=== PATIENT | female | born 1935 | race Caucasian/White ===

== ENCOUNTER 2019-08-04 06:53 | Outpatient (CLI) | payer MEDICARE, SELFPAY ==
[2019-08-04 07:13] LABS: Basophils Absolute Auto 0.07 K/mm3 (0.00-0.10); Basophils Percent Auto 0.9 % (0.0-1.0); Eosinophils Absolute Auto 0.23 K/mm3 (0.02-0.50); Eosinophils Percent Auto 2.8 % (1.0-6.0); Hematocrit 39.6 % (35.0-42.0); Hemoglobin 13.2 g/dL (11.7-13.8); Immature Granulocyte Absolute 0.04 K/mm3 (0.00-0.00); Immature Granulocyte Percent A 0.5 % (0.0-0.0); Lymphocytes Absolute Auto 3.61 K/mm3 (1.10-4.50); Lymphocytes Percent Auto 44.6 % (18.0-42.0); Mean Corpuscular HGB Conc 33.3 g/dL (32.0-36.0); Mean Corpuscular Hemoglobin 29.6 pg (27.0-31.0); Mean Corpuscular Volume 88.8 fL (78.0-102.0); Mean Platelet Volume 9.8 fl (9.2-11.8); Monocytes Absolute Auto 0.83 K/mm3 (0.10-0.90); Monocytes Percent Auto 10.3 % (2.0-11.0); Neutrophils Absolute Auto 3.3 K/mm3 (1.7-7.2); Neutrophils Percent Auto 40.9 % (50.0-70.0); Platelet Count Result 242 K/mm3 (150-420); Red Blood Count 4.46 M/mm3 (4.20-5.40); White Blood Count 8.1 K/mm3 (4.8-10.8)
[2019-08-04 07:21] LABS: Creatinine Urine 36.59 mg/dL (40-278)
[2019-08-04 08:23] LABS: MALB Creatinine Ratio 40.1 mg/g (0-30); Microalbumin Urine Random 14.7 mg/L
[2019-08-04 08:51] LABS: Alanine Aminotransferase 21 U/L (14-59); Albumin Level 3.3 g/dL (3.4-5.0); Alkaline Phosphatase 60 U/L (46-116); Anion Gap 13.4 mmol/L (7-16); Aspartate Amino Transferase 27 U/L (15-37); Bilirubin,Total 0.5 mg/dL (0.00-1.00); Blood Urea Nitrogen 27 mg/dL (7-18); Calcium 8.7 mg/dL (8.5-10.1); Carbon Dioxide 25 mmol/L (21-32); Chloride 98 mmol/L (98-108); Creatine Kinase 113 U/L (26-192); Estimated Glomerular Filt Rate 37; Glucose 95 mg/dL (70-99); Osmolality Calculated 279 mOsm/kg (285-295); Potassium 4.4 mmol/L (3.5-5.1); Sodium 132 mmol/L (136-145); Thyroid Stimulating Hormone 2.41 uIU/mL (0.36-3.74); Total Protein 7.3 g/dL (6.4-8.2)
== END 2019-08-04 06:54 | disposition home or self-care (01) ==
PROVIDERS: PCP Family Medicine; Visit Provider Family Medicine
DX: E78.2 Mixed hyperlipidemia (principal); I10 Essential (primary) hypertension
CPT/HCPCS: 36415; 80053; 82043; 82550; 84443; 85025

== ENCOUNTER 2019-12-06 07:12 | Outpatient (CLI) | payer MEDICARE, SELFPAY ==
[2019-12-06 07:27] LABS: Basophils Absolute Auto 0.08 K/mm3 (0.00-0.10); Basophils Percent Auto 1.1 % (0.0-1.0); Eosinophils Absolute Auto 0.25 K/mm3 (0.02-0.50); Eosinophils Percent Auto 3.3 % (1.0-6.0); Hemoglobin 13.9 g/dL (11.7-13.8); Immature Granulocyte Absolute 0.04 K/mm3 (0.00-0.00); Immature Granulocyte Percent A 0.5 % (0.0-0.0); Lymphocytes Absolute Auto 3.48 K/mm3 (1.10-4.50); Mean Corpuscular HGB Conc 30.9 g/dL (32.0-36.0); Mean Corpuscular Hemoglobin 31.4 pg (27.0-31.0); Mean Corpuscular Volume 101.8 fL (78.0-102.0); Mean Platelet Volume 10.8 fl (9.2-11.8); Monocytes Absolute Auto 0.64 K/mm3 (0.10-0.90); Monocytes Percent Auto 8.5 % (2.0-11.0); Neutrophils Absolute Auto 3.1 K/mm3 (1.7-7.2); Neutrophils Percent Auto 40.6 % (50.0-70.0); Platelet Count Result 179 K/mm3 (150-420); Red Blood Count 4.42 M/mm3 (4.20-5.40); Red Cell Distribution Width 11.7 % (11.6-14.4); White Blood Count 7.6 K/mm3 (4.8-10.8)
[2019-12-06 07:36] LABS: Anion Gap 11 mmol/L (8-16); Blood Urea Nitrogen 27 mg/dL (7-18); Calcium 9.1 mg/dL (8.5-10.1); Carbon Dioxide 23 mmol/L (21-32); Chloride 100 mmol/L (98-108); Estimated Glomerular Filt Rate 45; Glucose 103 mg/dL (70-99); Osmolality Calculated 283 mOsm/kg (285-295); Sodium 134 mmol/L (136-145)
[2019-12-06 07:40] LABS: Potassium 5.3 mmol/L (3.5-5.1)
== END 2019-12-06 07:13 | disposition home or self-care (01) ==
LOC: CHSLAB 07:14
PROVIDERS: PCP Family Medicine; Visit Provider Family Medicine
DX: I10 Essential (primary) hypertension (principal)
CPT/HCPCS: 36415; 80048; 85025

== ENCOUNTER 2020-06-17 07:15 | Outpatient (CLI) | payer MEDICARE, SELFPAY ==
[2020-06-17 07:30] LABS: Basophils Absolute Auto 0.09 K/mm3 (0.00-0.10); Basophils Percent Auto 1.1 % (0.0-1.0); Eosinophils Absolute Auto 0.26 K/mm3 (0.02-0.50); Eosinophils Percent Auto 3.2 % (1.0-6.0); Hemoglobin 13.7 g/dL (11.7-13.8); Immature Granulocyte Absolute 0.05 K/mm3 (0.00-0.00); Immature Granulocyte Percent A 0.6 % (0.0-0.0); Lymphocytes Absolute Auto 3.46 K/mm3 (1.10-4.50); Lymphocytes Percent Auto 42.9 % (18.0-42.0); Mean Corpuscular HGB Conc 33.4 g/dL (32.0-36.0); Mean Corpuscular Hemoglobin 31.9 pg (27.0-31.0); Mean Corpuscular Volume 95.3 fL (78.0-102.0); Mean Platelet Volume 9.9 fl (9.2-11.8); Monocytes Absolute Auto 0.78 K/mm3 (0.10-0.90); Monocytes Percent Auto 9.7 % (2.0-11.0); Neutrophils Absolute Auto 3.4 K/mm3 (1.7-7.2); Neutrophils Percent Auto 42.5 % (50.0-70.0); Platelet Count Result 242 K/mm3 (150-420); Red Cell Distribution Width 11.6 % (11.6-14.4); White Blood Count 8.1 K/mm3 (4.8-10.8)
[2020-06-17 07:31] LABS: Add Urine Microscopic? YES; Appearance Urine Sl Cloudy (Clear); Bilirubin Urine Negative (Negative); Blood Urine Negative (Negative); Color Urine Yellow (Yellow); Glucose Urine UA Negative (Negative); Ketones Urine Negative (Negative); Leukocyte Esterase Ur Trace (Negative); Nitrate Urine Positive (Negative); Protein Urine Negative (Negative); Urobilinogen Urine 0.2 mg/dL (0.2-1.0); pH Urine 5.5 (5.0-8.0)
[2020-06-17 07:48] LABS: Bacteria Urine 3+ /hpf; RBC Urine None seen /hpf (0-2); Squamous Epithelial Cell Urine Occasional /hpf (Few)
[2020-06-17 07:49] LABS: Creatinine Urine 50.26 mg/dL (40-278); MALB Creatinine Ratio 56.3 mg/g (0-30); Microalbumin Urine Random 28.3 mg/L
[2020-06-17 10:19] LABS: Alanine Aminotransferase 29 U/L (14-59); Albumin Level 3.5 g/dL (3.4-5.0); Alkaline Phosphatase 60 U/L (46-116); Anion Gap 7 mmol/L (8-16); Aspartate Amino Transferase 26 U/L (15-37); Bilirubin,Total 0.5 mg/dL (0.00-1.00); Blood Urea Nitrogen 31 mg/dL (7-18); Carbon Dioxide 29 mmol/L (21-32); Chloride 101 mmol/L (98-108); Cholesterol 212 mg/dL (0-200); Estimated Glomerular Filt Rate 36; Glucose 97 mg/dL (70-99); HDL Direct 35 mg/dL (40-60); LDL Cholesterol Calculated 131 mg/dL (<130); Osmolality Calculated 290 mOsm/kg (285-295); Sodium 137 mmol/L (136-145); Thyroid Stimulating Hormone 2.34 uIU/mL (0.36-3.74); Total Protein 7.9 g/dL (6.4-8.2); Triglycerides 230 mg/dL (0-150)
== END 2020-06-17 07:16 | disposition home or self-care (01) ==
LOC: CHSLAB 07:18
PROVIDERS: PCP Family Medicine; Visit Provider Family Medicine
DX: E78.2 Mixed hyperlipidemia (principal); I12.9 Hypertensive chronic kidney disease with stage 1 through stage 4 chronic kidney disease, or unspecified chronic kidney disease; N18.30 Chronic kidney disease, stage 3 unspecified
CPT/HCPCS: 36415; 80053; 80061; 81001; 82043; 84443; 85025

== ENCOUNTER 2020-09-25 06:56 | Outpatient (CLI) | payer MEDICARE, SELFPAY ==
[2020-09-25 08:10] LABS: Anion Gap 12 mmol/L (8-16); Blood Urea Nitrogen 23 mg/dL (7-18); Calcium 8.5 mg/dL (8.5-10.1); Carbon Dioxide 25 mmol/L (21-32); Chloride 103 mmol/L (98-108); Estimated Glomerular Filt Rate 42; Glucose 100 mg/dL (70-99); Osmolality Calculated 293 mOsm/kg (285-295); Potassium 4.8 mmol/L (3.5-5.1); Sodium 140 mmol/L (136-145)
== END 2020-09-25 06:57 | disposition home or self-care (01) ==
LOC: CHSLAB 06:59
PROVIDERS: PCP Family Medicine; Visit Provider Family Medicine
DX: N25.9 Disorder resulting from impaired renal tubular function, unspecified (principal)
CPT/HCPCS: 36415; 80048

== ENCOUNTER 2021-02-12 07:03 | Outpatient (CLI) | payer MEDICARE, SELFPAY ==
[2021-02-12 07:15] LABS: Basophils Absolute Auto 0.06 K/mm3 (0.00-0.10); Basophils Percent Auto 0.6 % (0.0-1.0); Eosinophils Absolute Auto 0.33 K/mm3 (0.02-0.50); Eosinophils Percent Auto 3.5 % (1.0-6.0); Hematocrit 41.1 % (35.0-42.0); Hemoglobin 14.2 g/dL (11.7-13.8); Immature Granulocyte Absolute 0.05 K/mm3 (0.00-0.00); Immature Granulocyte Percent A 0.5 % (0.0-0.0); Lymphocytes Absolute Auto 3.75 K/mm3 (1.10-4.50); Lymphocytes Percent Auto 39.9 % (18.0-42.0); Mean Corpuscular HGB Conc 34.5 g/dL (32.0-36.0); Mean Corpuscular Hemoglobin 31.8 pg (27.0-31.0); Mean Corpuscular Volume 91.9 fL (78.0-102.0); Monocytes Absolute Auto 0.88 K/mm3 (0.10-0.90); Monocytes Percent Auto 9.4 % (2.0-11.0); Neutrophils Absolute Auto 4.3 K/mm3 (1.7-7.2); Neutrophils Percent Auto 46.1 % (50.0-70.0); Platelet Count Result 236 K/mm3 (150-420); Red Blood Count 4.47 M/mm3 (4.20-5.40); Red Cell Distribution Width 11.5 % (11.6-14.4); White Blood Count 9.4 K/mm3 (4.8-10.8)
[2021-02-12 07:31] LABS: Creatinine Urine 121.53 mg/dL (40-278)
[2021-02-12 07:39] LABS: MALB Creatinine Ratio 170.6 mg/g (0-30); Microalbumin Urine Random 207.4 mg/L
[2021-02-12 08:08] LABS: Anion Gap 11 mmol/L (8-16); Blood Urea Nitrogen 30 mg/dL (7-18); Calcium 8.9 mg/dL (8.5-10.1); Carbon Dioxide 26 mmol/L (21-32); Chloride 100 mmol/L (98-108); Estimated Glomerular Filt Rate 34; Glucose 106 mg/dL (70-99); Osmolality Calculated 290 mOsm/kg (285-295); Potassium 4.6 mmol/L (3.5-5.1); Sodium 137 mmol/L (136-145)
== END 2021-02-12 07:04 | disposition home or self-care (01) ==
LOC: CHSLAB 07:05
PROVIDERS: PCP Family Medicine; Visit Provider Family Medicine
DX: I10 Essential (primary) hypertension (principal)
CPT/HCPCS: 36415; 80048; 82043; 85025

== ENCOUNTER 2021-06-18 07:09 | Outpatient (CLI) | payer MEDICARE, SELFPAY ==
[2021-06-18 07:31] LABS: Basophils Absolute Auto 0.08 K/mm3 (0.00-0.10); Basophils Percent Auto 0.9 % (0.0-1.0); Eosinophils Percent Auto 3.5 % (1.0-6.0); Hematocrit 42.3 % (35.0-42.0); Hemoglobin 13.9 g/dL (11.7-13.8); Immature Granulocyte Absolute 0.02 K/mm3 (0.00-0.00); Immature Granulocyte Percent A 0.2 % (0.0-0.0); Lymphocytes Absolute Auto 2.74 K/mm3 (1.10-4.50); Lymphocytes Percent Auto 32.3 % (18.0-42.0); Mean Corpuscular HGB Conc 32.9 g/dL (32.0-36.0); Mean Corpuscular Hemoglobin 32.2 pg (27.0-31.0); Mean Corpuscular Volume 97.9 fL (78.0-102.0); Mean Platelet Volume 9.8 fl (9.2-11.8); Monocytes Absolute Auto 0.81 K/mm3 (0.10-0.90); Monocytes Percent Auto 9.6 % (2.0-11.0); Neutrophils Absolute Auto 4.5 K/mm3 (1.7-7.2); Neutrophils Percent Auto 53.5 % (50.0-70.0); Platelet Count Result 246 K/mm3 (150-420); Red Blood Count 4.32 M/mm3 (4.20-5.40); Red Cell Distribution Width 11.2 % (11.6-14.4); White Blood Count 8.5 K/mm3 (4.8-10.8)
[2021-06-18 07:44] LABS: Creatinine Urine 90.89 mg/dL (40-278)
[2021-06-18 07:53] LABS: MALB Creatinine Ratio 421.6 mg/g (0-30); Microalbumin Urine Random 383.2 mg/L
[2021-06-18 08:22] LABS: Alanine Aminotransferase 31 U/L (14-59); Albumin Level 3.4 g/dL (3.4-5.0); Alkaline Phosphatase 53 U/L (46-116); Anion Gap 7 mmol/L (8-16); Aspartate Amino Transferase 27 U/L (15-37); Bilirubin,Total 0.6 mg/dL (0.00-1.00); Blood Urea Nitrogen 30 mg/dL (7-18); Calcium 8.9 mg/dL (8.5-10.1); Carbon Dioxide 29 mmol/L (21-32); Chloride 101 mmol/L (98-108); Estimated Glomerular Filt Rate 37; Glucose 99 mg/dL (70-99); Osmolality Calculated 290 mOsm/kg (285-295); Potassium 4.8 mmol/L (3.5-5.1); Sodium 137 mmol/L (136-145); Total Protein 7.5 g/dL (6.4-8.2)
== END 2021-06-18 07:10 | disposition home or self-care (01) ==
LOC: CHSLAB 07:10
PROVIDERS: PCP Family Medicine; Visit Provider Family Medicine
DX: I10 Essential (primary) hypertension (principal)
CPT/HCPCS: 36415; 80053; 82043; 85025

== ENCOUNTER 2021-06-24 12:22 | Outpatient (CLI) | payer MEDICARE, SELFPAY ==
--- NOTE | ~2021-06-24 | US_ITS ---
EXAMINATION: US retroperitoneal comp DATE: 06/24/2021 12:47 INDICATION: Proteinuria TECHNIQUE: Multiple ultrasound grayscale images of the kidneys were obtained. COMPARISON: 10/14/2015 FINDINGS: The right kidney measures 9.5 x 4.6 x 5.1 cm. The left kidney measures 9.7 x 5.0 x 4.4 cm. The kidney s demonstrate normal echogenicity. There is no hydronephrosis in either kidney. No stones identified . The bladder is normal. Diffuse hepatic steatosis. IMPRESSION: 1. Normal kidneys without hydronephrosis. 2. Diffuse hepatic steatosis. Reviewed, dictated and finalized at location B.
== END 2021-06-24 12:23 | disposition home or self-care (01) ==
LOC: CHSIMG 12:24
PROVIDERS: PCP Family Medicine; Visit Provider Family Medicine
DX: R80.9 Proteinuria, unspecified (principal)
CPT/HCPCS: 76770

== ENCOUNTER 2021-09-03 07:09 | Outpatient (CLI) | payer MEDICARE, SELFPAY ==
[2021-09-03 07:32] LABS: Basophils Absolute Auto 0.06 K/mm3 (0.00-0.10); Basophils Percent Auto 0.8 % (0.0-1.0); Eosinophils Absolute Auto 0.23 K/mm3 (0.02-0.50); Eosinophils Percent Auto 3.1 % (1.0-6.0); Hematocrit 37.6 % (35.0-42.0); Hemoglobin 13.1 g/dL (11.7-13.8); Immature Granulocyte Absolute 0.03 K/mm3 (0.00-0.00); Immature Granulocyte Percent A 0.4 % (0.0-0.0); Lymphocytes Absolute Auto 2.87 K/mm3 (1.10-4.50); Lymphocytes Percent Auto 38.2 % (18.0-42.0); Mean Corpuscular HGB Conc 34.8 g/dL (32.0-36.0); Mean Corpuscular Hemoglobin 32.4 pg (27.0-31.0); Mean Corpuscular Volume 93.1 fL (78.0-102.0); Mean Platelet Volume 9.7 fl (9.2-11.8); Monocytes Absolute Auto 0.79 K/mm3 (0.10-0.90); Monocytes Percent Auto 10.5 % (2.0-11.0); Neutrophils Absolute Auto 3.5 K/mm3 (1.7-7.2); Platelet Count Result 242 K/mm3 (150-420); Red Blood Count 4.04 M/mm3 (4.20-5.40); Red Cell Distribution Width 11.3 % (11.6-14.4); White Blood Count 7.5 K/mm3 (4.8-10.8)
[2021-09-03 08:03] LABS: Alanine Aminotransferase 25 U/L (14-59); Albumin Level 3.2 g/dL (3.4-5.0); Alkaline Phosphatase 50 U/L (46-116); Anion Gap 6 mmol/L (8-16); Aspartate Amino Transferase 27 U/L (15-37); Bilirubin,Total 0.7 mg/dL (0.00-1.00); Blood Urea Nitrogen 24 mg/dL (7-18); Calcium 8.8 mg/dL (8.5-10.1); Carbon Dioxide 27 mmol/L (21-32); Chloride 95 mmol/L (98-108); Estimated Glomerular Filt Rate 39; Glucose 103 mg/dL (70-99); Osmolality Calculated 270 mOsm/kg (285-295); Phosphorus 4.1 mg/dL (2.6-4.7); Potassium 4.1 mmol/L (3.5-5.1); Sodium 128 mmol/L (136-145); Thyroid Stimulating Hormone 2.26 uIU/mL (0.36-3.74); Total Protein 7.5 g/dL (6.4-8.2)
[2021-09-03 08:07] LABS: Creatinine Urine 53.44 mg/dL (40-278); Sodium Urine Random 58 mmol/L (20-110)
[2021-09-03 08:08] LABS: MALB Creatinine Ratio 297.9 mg/g (0-30); Microalbumin Urine Random 159.2 mg/L
[2021-09-03 09:18] LABS: Eosinophil Urine 0 % (0-0)
[2021-09-05 11:34] LABS: Complement C3 120 mg/dL (***)
[2021-09-06 14:48] LABS: ANCA Screen Negative (Negative)
[2021-09-06 16:59] LABS: Albumin 3.5 g/dL (3.8-4.8); Alpha 1 Globulin 0.3 g/dL (0.2-0.3); Alpha 2 Globulin 0.9 g/dL (0.5-0.9); Beta 1 Globulin 0.5 g/dL (0.4-0.6); Gamma Globulin 1.3 g/dL (0.8-1.7); Protein, Total 7.1 g/dL (6.1-8.1)
[2021-09-07 14:00] LABS: Total Protein/Creatinine Ratio 574 mg/g creat (21-161)
[2021-09-08 19:32] LABS: Anti Glomerular Basement Memb <1.0 AI (<1.0)
== END 2021-09-03 07:10 | disposition home or self-care (01) ==
LOC: CHSLAB 07:10
PROVIDERS: PCP Family Medicine; Visit Provider Internal Medicine Nephrology
DX: R80.8 Other proteinuria (principal); I12.9 Hypertensive chronic kidney disease with stage 1 through stage 4 chronic kidney disease, or unspecified chronic kidney disease; N18.32 Chronic kidney disease, stage 3b
CPT/HCPCS: 36415; 80053; 80069; 82043; 82570; 83520; 84100; 84155; 84156; 84165; 84166; 84300; 84443; 85025; 85999; 86036; 86038; 86160; 86225

== ENCOUNTER 2021-12-19 07:11 | Outpatient (CLI) | payer MEDICARE, SELFPAY ==
[2021-12-19 07:50] LABS: Albumin Level 3.2 g/dL (3.4-5.0); Anion Gap 7 mmol/L (8-16); Blood Urea Nitrogen 26 mg/dL (7-18); Calcium 8.6 mg/dL (8.5-10.1); Carbon Dioxide 29 mmol/L (21-32); Chloride 101 mmol/L (98-108); Estimated Glomerular Filt Rate 35; Glucose 100 mg/dL (70-99); Osmolality Calculated 288 mOsm/kg (285-295); Phosphorus 4.6 mg/dL (2.6-4.7); Potassium 4.3 mmol/L (3.5-5.1); Sodium 137 mmol/L (136-145)
[2021-12-19 13:41] LABS: Creatinine Urine 91.03 mg/dL (40-278); Total Protein Urine Random 82.7 mg/dL (0.0-11.9); Ur Ttl Prot Creatinine Ratio 0.91 mg/mg (0-0.20)
[2021-12-22 15:02] LABS: Parathyroid Intact 17 pg/mL (14-64)
[2021-12-23 18:37] LABS: Vitamin D 25 Hydroxy 43 ng/mL (30-100)
== END 2021-12-19 07:12 | disposition home or self-care (01) ==
LOC: CHSLAB 07:14
PROVIDERS: PCP Family Medicine; Visit Provider Internal Medicine Nephrology
DX: R80.8 Other proteinuria (principal); Z12.9 Encounter for screening for malignant neoplasm, site unspecified; N18.32 Chronic kidney disease, stage 3b; E55.9 Vitamin D deficiency, unspecified; N25.81 Secondary hyperparathyroidism of renal origin
CPT/HCPCS: 36415; 80069; 82306; 82570; 83970; 84156

== ENCOUNTER 2022-05-13 07:15 | Outpatient (CLI) | payer MEDICARE, SELFPAY ==
[2022-05-13 07:50] LABS: Creatinine Urine 55.15 mg/dL (40-278)
[2022-05-13 07:56] LABS: MALB Creatinine Ratio 560.2 mg/g (0-30)
[2022-05-13 08:07] LABS: Albumin Level 3.3 g/dL (3.4-5.0); Anion Gap 9 mmol/L (8-16); Blood Urea Nitrogen 32 mg/dL (7-18); Calcium 8.6 mg/dL (8.5-10.1); Carbon Dioxide 29 mmol/L (21-32); Chloride 101 mmol/L (98-108); Estimated Glomerular Filt Rate 38; Glucose 101 mg/dL (70-99); Osmolality Calculated 294 mOsm/kg (285-295); Phosphorus 4.5 mg/dL (2.6-4.7); Potassium 4.3 mmol/L (3.5-5.1); Sodium 139 mmol/L (136-145)
[2022-05-17 06:50] LABS: Parathyroid Intact 21 pg/mL (14-64)
[2022-05-17 20:01] LABS: Vitamin D 25 Hydroxy 36 ng/mL (30-100)
== END 2022-05-13 07:16 | disposition home or self-care (01) ==
LOC: CHSLAB 07:17
PROVIDERS: PCP Family Medicine; Visit Provider Internal Medicine Nephrology
DX: N18.32 Chronic kidney disease, stage 3b (principal); I12.9 Hypertensive chronic kidney disease with stage 1 through stage 4 chronic kidney disease, or unspecified chronic kidney disease; R80.8 Other proteinuria; E55.9 Vitamin D deficiency, unspecified; N25.81 Secondary hyperparathyroidism of renal origin
CPT/HCPCS: 36415; 80069; 82043; 82306; 83970

== ENCOUNTER 2022-06-09 07:02 | Outpatient (CLI) | payer MEDICARE, SELFPAY ==
[2022-06-09 07:25] LABS: Basophils Absolute Auto 0.09 K/mm3 (0.00-0.10); Eosinophils Absolute Auto 0.59 K/mm3 (0.02-0.50); Eosinophils Percent Auto 6.7 % (1.0-6.0); Hematocrit 39.4 % (35.0-42.0); Hemoglobin 12.7 g/dL (11.7-13.8); Immature Granulocyte Absolute 0.06 K/mm3 (0.00-0.00); Immature Granulocyte Percent A 0.7 % (0.0-0.0); Lymphocytes Percent Auto 30.9 % (18.0-42.0); Mean Corpuscular HGB Conc 32.2 g/dL (32.0-36.0); Mean Corpuscular Hemoglobin 32.8 pg (27.0-31.0); Mean Corpuscular Volume 101.8 fL (78.0-102.0); Mean Platelet Volume 10.3 fl (9.2-11.8); Monocytes Absolute Auto 0.83 K/mm3 (0.10-0.90); Monocytes Percent Auto 9.5 % (2.0-11.0); Neutrophils Absolute Auto 4.5 K/mm3 (1.7-7.2); Neutrophils Percent Auto 51.2 % (50.0-70.0); Platelet Count Result 244 K/mm3 (150-420); Red Blood Count 3.87 M/mm3 (4.20-5.40); Red Cell Distribution Width 11.4 % (11.6-14.4); White Blood Count 8.8 K/mm3 (4.8-10.8)
[2022-06-09 08:24] LABS: Cholesterol 181 mg/dL (0-200); HDL Direct 38 mg/dL (40-60); LDL Cholesterol Calculated 95 mg/dL (<130); Thyroid Stimulating Hormone 2.01 uIU/mL (0.36-3.74); Triglycerides 239 mg/dL (0-150)
== END 2022-06-09 07:03 | disposition home or self-care (01) ==
LOC: CHSLAB 07:05
PROVIDERS: PCP Family Medicine; Visit Provider Family Medicine
DX: E78.2 Mixed hyperlipidemia (principal); I10 Essential (primary) hypertension; N18.32 Chronic kidney disease, stage 3b
CPT/HCPCS: 36415; 80061; 84443; 85025

== ENCOUNTER 2022-07-05 13:41 | Emergency (ER) | payer MEDICARE, SELFPAY ==
[2022-07-05 13:50] VITALS: BP 141/40; PULSE 72; RESP 18; TEMP 36.2; O2SAT 99
--- NOTE | 2022-07-05 14:04 | ED.GENADULT ---
HPI - General Adult General Chief complaint: Extremity Problem,Nontraumatic Stated complaint: Rt Foot Pain Time Seen by Provider: 07/05/22 14:04 Source: patient Mode of arrival: ambulatory Limitations: no limitations History of Present Illness HPI narrative: a 7-year-old female patient presents to [facility] with complaints of right lower leg pain that started a couple of days ago. Patient states she recently had a bunion shaved off of the right foot. Patient states she has had some pain, itching and noticed that her leg has been swelling with some redness. Related Data Home Medications Medication Instructions Recorded Confirmed acetaminophen 500 mg tablet 500 mg PO Q6H PRN Pain 05/20/22 07/05/22 (Tylenol Extra Strength) calcium carb,cit ER 600 mg-vit D3 1 tablet PO DAILY 05/20/22 07/05/22 12.5 mcg (500 unit) tablet,ext.rel latanoprost 0.005 % eye drops 1 drp EACH EYE DAILY 05/20/22 07/05/22 lisinopril 20 1 tablet PO BID 05/20/22 07/05/22 mg-hydrochlorothiazide 12.5 mg tablet (Zestoretic) metoprolol succinate 25 mg 12.5 mg PO DAILY 05/20/22 07/05/22 tablet,extended release 24 hr multivitamin (One-A-Day Essential 1 tablet PO DAILY 05/20/22 07/05/22 tablet) omega-3 fatty acids 500 mg PO DAILY 05/20/22 07/05/22 pravastatin 20 mg tablet 20 mg PO DAILY 05/20/22 07/05/22 Allergies Allergy/AdvReac Type Severity Reaction Status Date / Time Penicillins Allergy Rash Verified 07/05/22 13:49 Sulfa (Sulfonamide Allergy Rash Verified 07/05/22 13:49 Antibiotics) Review of Systems Review of Systems: CONSTITUTIONAL: Denies fever, chills, or sweats. EYES: Denies visual changes, redness, or discharge. ENT: Denies rhinorrhea, congestion, sore throat, or otalgia. CARDIOVASCULAR: Denies chest pain, palpitations, or edema. RESPIRATORY: Denies cough or dyspnea. GASTROINTESTINAL: Denies abdominal pain, nausea, vomiting, or diarrhea. GENITOURINARY: Denies dysuria or hematuria. SKIN: Denies rash or itching. MUSCULOSKELETAL: Denies back pain, joint pain, or myalgia. Positive redness, swelling and pain to right lower leg NEUROLOGIC: Denies headache, numbness, or weakness. PSYCHIATRIC: Denies anxiety or depression. [facility] Past Medical History Medical History CKD (chronic kidney disease) Depression Diabetes Hyperlipidemia Hypertension Hypothyroidism Obesity Proteinuria Family History Family History Mother Diabetes mellitus Hypertension Cerebrovascular accident Heart failure Kidney disease Father Hypertension Cerebrovascular accident Social History Social History Smoking status: Former smoker Tobacco type: cigarettes Alcohol intake: current Alcohol use details: once a month Substance use: never Lack of Transportation: No Lack of Food: Never True Current Housing: I Have Housing Concerned About Future Housing: No Difficulty Paying Gas/Electric Bills: No Difficulty Paying for Meds: No Currently Unemployed: No Education: High School Diploma/GED Difficulty w/ Childcare or Family Care: No Living arrangements: with family Gender identity (if verbalized by the patient): Female Comments At the time of my signature I agree with nursing past medical history, surgical, social, and family history. There is no relevant family history pertinent to the presenting complaint. Exam Narrative: GENERAL: Well-appearing, well-nourished, and in no acute distress. HEAD: Normocephalic, atraumatic. EYES: PERRLA and EOMI. ENT: Nares clear, no rhinorrhea or epistaxis. Mucous membranes moist. NECK: Supple. No lymphadenopathy CHEST: Clear to auscultation. No respiratory distress. HEART: Regular rate and rhythm. No murmur heard. Normal peripheral pulses. ABDOMEN: Soft, nontender, nondistended, normal active bowel sounds
== END 2022-07-05 14:20 | disposition home or self-care (01) ==
PROVIDERS: Emergency Provider Nurse Practitioner Family; PCP Family Medicine
DX: L03.115 Cellulitis of right lower limb (principal); Z87.891 Personal history of nicotine dependence; I12.9 Hypertensive chronic kidney disease with stage 1 through stage 4 chronic kidney disease, or unspecified chronic kidney disease; E11.22 Type 2 diabetes mellitus with diabetic chronic kidney disease; N18.9 Chronic kidney disease, unspecified; E03.9 Hypothyroidism, unspecified; E66.9 Obesity, unspecified; Z68.35 Body mass index [BMI] 35.0-35.9, adult
CPT/HCPCS: 99213; G0463

== ENCOUNTER 2022-09-16 08:14 | Outpatient (CLI) | payer MEDICARE, SELFPAY ==
[2022-09-16 08:34] LABS: Creatinine Urine 118.37 mg/dL (40-278); Ur Ttl Prot Creatinine Ratio 0.57 mg/mg (0-0.20)
[2022-09-16 08:55] LABS: Anion Gap 12 mmol/L (8-16); Blood Urea Nitrogen 35 mg/dL (7-18); Carbon Dioxide 23 mmol/L (21-32); Chloride 101 mmol/L (98-108); Estimated Glomerular Filt Rate 30; Glucose 194 mg/dL (70-99); Potassium 4.8 mmol/L (3.5-5.1); Sodium 136 mmol/L (136-145)
[2022-09-16 08:56] LABS: Albumin Level 3.1 g/dL (3.4-5.0); Osmolality Calculated 295 mOsm/kg (285-295); Phosphorus 3.7 mg/dL (2.6-4.7)
== END 2022-09-16 08:15 | disposition home or self-care (01) ==
LOC: CHSLAB 08:15
PROVIDERS: PCP Family Medicine; Visit Provider Internal Medicine Nephrology
DX: I12.9 Hypertensive chronic kidney disease with stage 1 through stage 4 chronic kidney disease, or unspecified chronic kidney disease (principal); N18.32 Chronic kidney disease, stage 3b; R80.9 Proteinuria, unspecified; R73.9 Hyperglycemia, unspecified
CPT/HCPCS: 36415; 80069; 82570; 83036; 84156

== ENCOUNTER 2022-12-08 07:22 | Outpatient (CLI) | payer MEDICARE, SELFPAY ==
[2022-12-08 07:53] LABS: Basophils Absolute Auto 0.06 K/mm3 (0.00-0.10); Basophils Percent Auto 0.8 % (0.0-1.0); Eosinophils Absolute Auto 0.28 K/mm3 (0.02-0.50); Eosinophils Percent Auto 3.9 % (1.0-6.0); Hematocrit 32.3 % (35.0-42.0); Hemoglobin 10.6 g/dL (11.7-13.8); Immature Granulocyte Absolute 0.03 K/mm3 (0.00-0.00); Immature Granulocyte Percent A 0.4 % (0.0-0.0); Lymphocytes Absolute Auto 2.41 K/mm3 (1.10-4.50); Lymphocytes Percent Auto 33.7 % (18.0-42.0); Mean Corpuscular HGB Conc 32.8 g/dL (32.0-36.0); Mean Corpuscular Hemoglobin 32.5 pg (27.0-31.0); Mean Corpuscular Volume 99.1 fL (78.0-102.0); Mean Platelet Volume 10.1 fl (9.2-11.8); Monocytes Absolute Auto 0.92 K/mm3 (0.10-0.90); Monocytes Percent Auto 12.8 % (2.0-11.0); Neutrophils Absolute Auto 3.5 K/mm3 (1.7-7.2); Neutrophils Percent Auto 48.4 % (50.0-70.0); Platelet Count Result 287 K/mm3 (150-420); Red Blood Count 3.26 M/mm3 (4.20-5.40); White Blood Count 7.2 K/mm3 (4.8-10.8)
[2022-12-08 07:54] LABS: Appearance Urine Clear (Clear); Bilirubin Urine Negative (Negative); Blood Urine Negative (Negative); Color Urine Light Yellow (Yellow); Glucose Urine UA Negative (Negative); Ketones Urine Negative (Negative); Leukocyte Esterase Ur 1+ (Negative); Nitrate Urine Positive (Negative); Protein Urine Trace (Negative); Urobilinogen Urine 0.2 mg/dL (0.2-1.0); pH Urine 8.5 (5.0-8.0)
[2022-12-08 07:58] LABS: Add Urine Microscopic? YES; Bacteria Urine 2+ /hpf; RBC Urine None seen /hpf (0-2); Squamous Epithelial Cell Urine Few /hpf (Few); WBC Urine 0-5 /hpf (0-3)
[2022-12-08 08:24] LABS: Alanine Aminotransferase 14 U/L (14-59); Albumin Level 3.3 g/dL (3.4-5.0); Alkaline Phosphatase 59 U/L (46-116); Anion Gap 11 mmol/L (8-16); Aspartate Amino Transferase 21 U/L (15-37); Bilirubin,Total 0.6 mg/dL (0.00-1.00); Blood Urea Nitrogen 28 mg/dL (7-18); Calcium 9.2 mg/dL (8.5-10.1); Carbon Dioxide 23 mmol/L (21-32); Chloride 102 mmol/L (98-108); Estimated Glomerular Filt Rate 35; Glucose 92 mg/dL (70-99); Osmolality Calculated 287 mOsm/kg (285-295); Potassium 4.3 mmol/L (3.5-5.1); Sodium 136 mmol/L (136-145); Thyroid Stimulating Hormone 2.45 uIU/mL (0.36-3.74); Total Protein 7.2 g/dL (6.4-8.2)
== END 2022-12-08 07:23 | disposition home or self-care (01) ==
LOC: CHSLAB 07:24
PROVIDERS: PCP Family Medicine; Visit Provider Family Medicine
DX: I10 Essential (primary) hypertension (principal)
CPT/HCPCS: 36415; 80053; 81001; 84443; 85025

== ENCOUNTER 2022-12-11 13:20 | Outpatient (CLI) | payer MEDICARE, SELFPAY ==
--- NOTE | ~2022-12-11 | US_ITS ---
EXAMINATION: US arterial ankle brachial ind DATE: 12/11/2022 14:27 INDICATION: Peripheral vascular disease. Absent pedal pulses. TECHNIQUE: Segmental pressures and plethysmographic and Doppler waveforms of the brachial and lower e xtremity arteries were obtained. COMPARISON: None. FINDINGS: Right and left brachial artery pressures of 138 mm Hg and 136 mm Hg, respectively, are concordant (no rmal difference <= 30 mmHg). The right ankle-brachial index (KATHY) is 0.91 (normal >= 0.9-1.0). The right great toe-brachial index (TBI) is 0.62 (normal >= 0.65). Arterial Doppler waveforms are monophasic at the ankle. The left KATHY is 0.54. The left TBI is 0.33. Arterial Doppler waveforms are monophasic at the ankle. IMPRESSION: 1. Mildly decreased right KATHY and moderately decreased left KATHY, consistent with arterial occlusive d isease. Reviewed, dictated and finalized at location A. IMPRESSION: 1. Mildly decreased right KATHY and moderately decreased left KATHY, consistent wit h arterial occlusive disease.
--- NOTE | ~2022-12-11 | US_ITS ---
EXAMINATION: US venous doppler [facility] DATE: 12/11/2022 14:28 INDICATION: Lower limb edema. TECHNIQUE: Grayscale ultrasound images without and with compression and Doppler ultrasound images of the bilateral lower extremity veins were obtained. COMPARISON: None. FINDINGS: The visualized portions of right common femoral vein, profunda (deep) femoral vein, femoral vein, pop liteal vein, peroneal veins, posterior tibial veins, and greater saphenous vein outflow are patent. The visualized portions of left common femoral vein, profunda femoral vein, femoral vein, popliteal v ein, peroneal veins, posterior tibial veins, and greater saphenous vein outflow are patent. IMPRESSION: 1. No deep venous thrombosis. Reviewed, dictated and finalized at location A.
[2022-12-11 13:47] LABS: Immature Reticulocyte Fraction 15.9 % (2.0-16.52); Reticulocyte Hemoglobin Conten 34.8 pg (28.0-35.0); Reticulocyte Percent 2.05 % (0.50-1.50); Reticulocytes Absolute 0.07 M/mm3 (0.02-0.1)
[2022-12-11 14:00] LABS: D Dimer 2.17 mg/L (0.19-0.50)
[2022-12-11 14:31] LABS: Ferritin 199 ng/mL (8-252); Iron 62 ug/dL (50-170); Percent Iron Saturation 24 % (12-57)
== END 2022-12-11 13:21 | disposition home or self-care (01) ==
LOC: CHSIMG 13:21
PROVIDERS: PCP Family Medicine; Visit Provider Family Medicine
DX: R09.89 Other specified symptoms and signs involving the circulatory and respiratory systems (principal); R60.9 Edema, unspecified; D64.9 Anemia, unspecified
CPT/HCPCS: 36415; 82728; 83540; 83550; 85046; 85380; 93922; 93970

== ENCOUNTER 2023-01-18 11:52 | Outpatient (CLI) | payer MEDICARE, SELFPAY ==
--- NOTE | ~2023-01-18 | XR_ITS ---
XR chest 2V 01/18/2023 12:12 Indication: Acute cough Procedure: 2 view chest Comparison: 01/22/2014 Findings: Heart size normal. Bilateral interstitial infiltrates are present. Small pleural effusions. No pneumothorax. No acute osseous abnormality. Impression: 1: Bilateral interstitial infiltrates may represent mild edema or pneumonia. 2: Small pleural effusions. Reviewed, dictated and finalized at location B. R MECHANIC Impression: 1: Bilateral interstitial infiltrates may represent mild edema or pneumonia. 2: Small pleural effusions.
== END 2023-01-18 11:53 | disposition home or self-care (01) ==
PROVIDERS: PCP Family Medicine; Visit Provider Family Medicine
DX: R05.1 Acute cough (principal); R91.8 Other nonspecific abnormal finding of lung field; J90 Pleural effusion, not elsewhere classified
CPT/HCPCS: 71046

== ENCOUNTER 2023-02-23 08:28 | Outpatient (CLI) | payer MEDICARE, SELFPAY ==
[2023-02-23 09:08] LABS: Creatinine Urine 72.44 mg/dL (40-278); Ur Ttl Prot Creatinine Ratio 0.39 mg/mg (0-0.20)
[2023-02-23 09:20] LABS: Albumin Level 2.8 g/dL (3.4-5.0); Anion Gap 6 mmol/L (8-16); Blood Urea Nitrogen 33 mg/dL (7-18); Calcium 8.2 mg/dL (8.5-10.1); Carbon Dioxide 30 mmol/L (21-32); Chloride 101 mmol/L (98-108); Estimated Glomerular Filt Rate 33; Glucose 83 mg/dL (70-99); Osmolality Calculated 290 mOsm/kg (285-295); Phosphorus 4.3 mg/dL (2.6-4.7); Potassium 4.2 mmol/L (3.5-5.1); Sodium 137 mmol/L (136-145)
[2023-02-25 18:57] LABS: Parathyroid Intact 46 pg/mL (14-64)
[2023-02-25 20:06] LABS: Vitamin D 25 Hydroxy 38 ng/mL (30-100)
== END 2023-02-23 08:29 | disposition home or self-care (01) ==
LOC: CHSLAB 08:30
PROVIDERS: PCP Family Medicine; Visit Provider Internal Medicine Nephrology
DX: R80.9 Proteinuria, unspecified (principal); N25.81 Secondary hyperparathyroidism of renal origin; E55.9 Vitamin D deficiency, unspecified; N18.32 Chronic kidney disease, stage 3b; I12.9 Hypertensive chronic kidney disease with stage 1 through stage 4 chronic kidney disease, or unspecified chronic kidney disease
CPT/HCPCS: 36415; 80069; 82306; 82570; 83970; 84156

== ENCOUNTER 2023-05-19 10:39 | Outpatient (CLI) | payer MEDICARE, SELFPAY ==
[2023-05-19 11:55] LABS: Anion Gap 7 mmol/L (8-16); Blood Urea Nitrogen 34 mg/dL (7-18); Calcium 8.9 mg/dL (8.5-10.1); Carbon Dioxide 31 mmol/L (21-32); Chloride 99 mmol/L (98-108); Estimated Glomerular Filt Rate 36; Glucose 80 mg/dL (70-99); NT Pro B Type Natriuretic Pept 2324 pg/mL (0-450); Osmolality Calculated 290 mOsm/kg (285-295); Potassium 4.7 mmol/L (3.5-5.1); Sodium 137 mmol/L (136-145)
== END 2023-05-19 10:40 | disposition home or self-care (01) ==
LOC: CHSLAB 10:42
PROVIDERS: PCP Family Medicine; Visit Provider Hospitalist
DX: I50.9 Heart failure, unspecified (principal)
CPT/HCPCS: 36415; 80048; 83880

== ENCOUNTER 2023-06-28 11:38 | Outpatient (CLI) | payer MEDICARE, SELFPAY ==
[2023-06-28 12:19] LABS: Creatinine Urine 30.81 mg/dL (40-278); Total Protein Urine Random 16.7 mg/dL (0.0-11.9); Ur Ttl Prot Creatinine Ratio 0.54 mg/mg (0-0.20)
[2023-06-28 12:30] LABS: Albumin Level 3.3 g/dL (3.4-5.0); Anion Gap 11 mmol/L (4-12); Blood Urea Nitrogen 46 mg/dL (7-18); Calcium 8.9 mg/dL (8.5-10.1); Carbon Dioxide 25 mmol/L (21-32); Chloride 100 mmol/L (98-108); Estimated Glomerular Filt Rate 44; Glucose 89 mg/dL (70-99); Osmolality Calculated 292 mOsm/kg (285-295); Phosphorus 3.7 mg/dL (2.6-4.7); Potassium 4.8 mmol/L (3.5-5.1); Sodium 136 mmol/L (136-145)
== END 2023-06-28 11:39 | disposition home or self-care (01) ==
LOC: CHSLAB 11:39
PROVIDERS: PCP Family Medicine; Visit Provider Internal Medicine Nephrology
DX: E55.9 Vitamin D deficiency, unspecified (principal); I12.9 Hypertensive chronic kidney disease with stage 1 through stage 4 chronic kidney disease, or unspecified chronic kidney disease; N18.32 Chronic kidney disease, stage 3b; N25.81 Secondary hyperparathyroidism of renal origin; R80.9 Proteinuria, unspecified
CPT/HCPCS: 36415; 80069; 82570; 84156

== ENCOUNTER 2023-10-15 07:24 | Outpatient (CLI) | payer MEDICARE, SELFPAY ==
[2023-10-15 08:00] LABS: Creatinine Urine 76.94 mg/dL (40-278); Total Protein Urine Random 29.6 mg/dL (0.0-11.9); Ur Ttl Prot Creatinine Ratio 0.38 mg/mg (0-0.20)
[2023-10-15 09:58] LABS: Anion Gap 8 mmol/L (4-12); Blood Urea Nitrogen 42 mg/dL (7-18); Calcium 8.6 mg/dL (8.5-10.1); Carbon Dioxide 28 mmol/L (21-32); Chloride 100 mmol/L (98-108); Estimated Glomerular Filt Rate 29; Glucose 83 mg/dL (70-99); Osmolality Calculated 291 mOsm/kg (285-295); Phosphorus 4.2 mg/dL (2.6-4.7); Potassium 4.9 mmol/L (3.5-5.1); Sodium 136 mmol/L (136-145)
[2023-10-16 13:59] LABS: Vitamin D 25 Hydroxy 46 ng/mL (30-100)
[2023-10-16 16:29] LABS: Parathyroid Intact 21 pg/mL (16-77)
== END 2023-10-15 07:25 | disposition home or self-care (01) ==
LOC: CHSLAB 07:26
PROVIDERS: PCP Family Medicine; Visit Provider Internal Medicine Nephrology
DX: E55.9 Vitamin D deficiency, unspecified (principal); I12.9 Hypertensive chronic kidney disease with stage 1 through stage 4 chronic kidney disease, or unspecified chronic kidney disease; N18.32 Chronic kidney disease, stage 3b; N25.81 Secondary hyperparathyroidism of renal origin; R80.9 Proteinuria, unspecified
CPT/HCPCS: 36415; 80069; 82306; 82570; 83970; 84156

== ENCOUNTER 2024-02-18 09:45 | Outpatient (CLI) | payer MEDICARE, SELFPAY ==
[2024-02-18 10:37] LABS: Albumin Level 3.3 g/dL (3.4-5.0); Anion Gap 8 mmol/L (4-12); Blood Urea Nitrogen 46 mg/dL (7-18); Carbon Dioxide 29 mmol/L (21-32); Chloride 102 mmol/L (98-108); Estimated Glomerular Filt Rate 28; Glucose 89 mg/dL (70-99); Osmolality Calculated 298 mOsm/kg (285-295); Phosphorus 4.2 mg/dL (2.6-4.7); Sodium 139 mmol/L (136-145)
[2024-02-18 10:44] LABS: Creatinine Urine 85.56 mg/dL (40-278); Total Protein Urine Random 26.1 mg/dL (0.0-11.9); Ur Ttl Prot Creatinine Ratio 0.31 mg/mg (0-0.20)
== END 2024-02-18 09:46 | disposition home or self-care (01) ==
PROVIDERS: PCP Family Medicine; Visit Provider Internal Medicine Nephrology
DX: R80.9 Proteinuria, unspecified (principal); I12.9 Hypertensive chronic kidney disease with stage 1 through stage 4 chronic kidney disease, or unspecified chronic kidney disease; N18.32 Chronic kidney disease, stage 3b
CPT/HCPCS: 36415; 80069; 82570; 84156

== ENCOUNTER 2024-06-13 07:35 | Outpatient (CLI) | payer MEDICARE, SELFPAY ==
--- OUTSIDE RECORDS SUMMARY | 2024-06-13 07:41 | XMS_ITS | Encounter Summary ---
Author Organization [facility] Address [facility] [place] [address] Care Team Providers Care Operations Administrative Assistant Name Role Phone Eliu Vicente MD Primary Care Provider [phone] Encounter Details Date Type Department Care Team (Late st Contact Info) Description 05/20/2023 Abstract [facility] [address] [address] Mina Koch MA Social History Tobacco Use Types Packs/Day Years Used Date Smoking Tobacco: Never Smokeless Tobacco: Never Alcohol Use Standard Drinks/Week Comments Never 0 (1 standard drink = 0.6 oz pur e alcohol) [facility] Utilities Answer Date Recorded In the past 12 months has e electric, gas, oil, or water official.fm threatened to shut off services in your home? No 02/04/2023 Humiliation, Afraid, Rape, and Kick questionnair e Answer Date Recorded Within the last year, have y ou been afraid of your partner or ex-partner? No 02/04/2023 Within the last year, have y ou been humiliated or emotionally abused in other ways by your partner or ex-partner? No Within the last year, have y ou been kicked, hit, slapped, or otherwise physically hurt by your partner or ex-partner? No 02/04/2023 Within the last year, have y ou been raped or forced to have any kind of sexual activity by your partner or ex-partner? No 02/04/2023 Social Connection and Isolat ion Panel [NHANES] Answer Date Recorded In a typical week, how many times do you talk on the phone with family, friends, or neighbors? More than three times a week 08/26/2022 How often do you get togethe r with friends or relatives? Three times a week 08/26/2022 How often do you attend chur ch or anabaptism services? More than 4 times per year 08/26/2022 Do you belong to any clubs o r organizations such as mormon groups, unions, fraternal or athletic groups, or school groups? Yes 08/26/2022 How often do you attend meet ings of the clubs or organizations you belong to? More than 4 times per year 08/26/2022 Are you , , di vorced, , never , or living with a partner? 08/26/2022 AUDIT-C Answer Date Recorded Q1: How often do you have a drink containing alc ohol? Monthly or less 08/26/2022 Q2: How many drinks containi ng alcohol do you have on a typical day when you are drinking? 1 or 2 08/26/2022 Q3: How often do you have si x or more drinks on one occasion? Never 08/26/2022 Overall Financial Resource Strain (CARDIA) Answe r Date Recorded How hard is it for you to pa y for the very basics like food, housing, medical care, and heating? Not hard at all 02/04/2023 PHQ-2 Answer Date Recorded Patient Health Questionnaire-2 Score 0 08/26/2022 [facility] - Occupational Stress Questionnaire Answer Date Recorded Do you feel stress - tense, restless, nervous, or anxious, or unable to sleep at night because your mind is troubled all the time - these days? Only a little 08/26/2022 Exercise Vital Sign Answer Date Recorde d On average, how many days pe r week do you engage in moderate to strenuous exercise (like a brisk walk)? 3 days 08/26/2022 On average, how many minutes do you engage in exercise at this level? 20 min 08/26/2022 Hunger Vital Sign Answer Date Recorded Within the past 12 months, y ou worried that your food would run out before you got the money to buy more. Never true 02/05/20 23 Within the past 12 months, t he food you bought just didn't last and you didn't have money to get more. Never true 02/04/2023 PRAPARE - Transportation Answer Date Re corded In the past 12 months, has l ack of transportation kept you from medical appointments or from getting medications? No 08/2022 In the past 12 months, has l ack of transportation kept you from meetings, work, or from getting things needed for daily living? No 02/04/2023 Housing Stability Vital Sign Answer Papo e Recorded In the last 12 months, was t here a time when you were not able to pay the mortgage or rent on time? No 02/04/2023 In the last 12 months, how many places have you lived? 1 02/04/2023 In the last 12 months, was t here a time when you did not have a steady place to sleep or slept in a retirement (including now)? No 02/04/2023 Comments No Sex and Gender Information Value Date Recorded Sex Assigned at Female 03/16/2024 12:42 PM POLICY WRITER Legal Sex Female 11:51 PM CDT Gender Identity Not on file Sexual Orientation Not on file documented as of this encounter Functional Status * Are you deaf or do you have serious difficulty hearing Answer Date of Assessment Author Status No 02/04/2023 12:11 AM Carla Ortiz RN Active * Are you blind or do you have serious difficulty seeing, even when wearing glasses? Answer Date of Assessment Author Status No 02/04/2023 12:11 AM Carla Ortiz RN Active * Do you have serious difficulty walking or climbing stairs? Answer Date of Assessment Author Status No 02/04/2023 12:11 AM Carla Ortiz RN Active * Do you have difficulty dressing or bathing? Answer Date of Assessment Author Status No 02/04/2023 12:11 AM Carla Ortiz RN Active * Because of a physical, mental, or emotional condition, do you have difficulty doing errands alone such as visiting a doctor's office or shopping? Answer Date of Assessment Author Status No 02/04/2023 12:11 AM Carla Ortiz RN Active documented as of this encounter Mental Status * Because of a physical, mental, or emotional condition, do you have serious difficulty concentrating, remembering, or making decisions? Answer Entry Date Author Status No 02/04/2023 12:11 AM POLICY WRITER Carla Gillespie RN Active documented in this encounter Plan of Treatment Upcoming Encounters Date Type Department Care Team (Late st Contact Info) Description 09/18/2024 9:30 AM CDT Office Visit [facility] [address] [address] [place] [id number] Jhonny Reese MD [facility]. [address] [place] [address] documented as of this encounter Procedures Procedure Name Priority Date/Time Associated Diagnosis Comments COMPREHENSIVE METABOLIC PANEL Routine 02/18/2024 PRO-BRAIN NATRIURETIC PEPTIDE Routine 05/19/2023 BASIC METABOLIC PANEL Routine 05/19/2023 documented in this encounter Results * (ABNORMAL) COMPREHENSIVE METABOLIC PANEL (02/18/2024) SODIUM S/P/B 139 GLUCOSE 89 mg/dL BUN 46 CREATININE S/P/B 1.74(A) 0.5 - 1.0 CALCIUM S/P/B 9.0 POTASSIUM S/P/B 5.0 CHLORIDE S/P/B 102 GFR ESTIMATE 28 us Default History Genericprovider LABORATORY Final Result * (ABNORMAL) BASIC METABOLIC PANEL (05/19/2023) SODIUM S/P/B 137 POTASSIUM S/P/B 4.7 CO2 31 CHLORIDE S/P/B 99 GLUCOSE 80 mg/dL CALCIUM S/P/B 8.9 BUN 34 CREATININE S/P/B 1.39(A) 0.5 - 1.0 EGFR NON-AFR. AMER. 36 <=90 05/19/2023 us Default History Genericprovider LABORATORY Edited Result - Final * PRO-BRAIN NATRIURETIC PEPTIDE (05/19/2023) PRO-BRAIN NATRIURETIC PEPTIDE 2,324 05/19/2023 us Default History Genericprovider LABORATORY Edited Result - Final documented in this encounter Visit Diagnoses Not on filedocumented in this encounter Care Teams Operations Administrative Assistant Relationship Specialty Start Date End Date Eliu Vicente MD [address] [place] [address] PCP - General FAMILY PRACTICE 09/17/21 documented as of this encounter
--- OUTSIDE RECORDS SUMMARY | 2024-06-13 07:41 | XMS_ITS | Clinical Summary ---
Author Organization [facility] Address [address] [place] [address] Care Team Providers Care Sizing Sponger Name Role Phone Eliu Vicente MD Primary Care Provider [phone] Allergies Active Allergy Reactions Criticality Noted Date Comments Nystatin Other (see comment) 08/26/2022 Burning pain per patient Penicillins Rash Low 09/17/2021 Sulfa Antibiotics Rash Medium 09/17/2021 Medications fish oil (OMEGA-3 FATTY ACID) 1000 MG Cap capsule Take 1 capsule (1,000 mg total) by mouth daily. Active pravastatin (PRAVACHOL) 10 MG tablet Take 1 tablet (10 mg total) by mouth nightly at bedtime. Active latanoprost (XALATAN) 0.005 % ophthalmic solution Place 1 drop into both eyes nightly at bedtime. Active metoprolol succinate ER (TOPROL-XL) 25 MG 24 hr tablet Take 1.5 tablets (37.5 mg total) by mouth daily. Active miconazole (MICOTIN) 2 % cream Apply topically daily. Active ferrous sulfate, 65 mg elemental, 325 (65 FE) MG tablet Take 1 tablet (325 mg total) by mouth daily with breakfast. 30 tablet 3 Active furosemide (LASIX) 20 MG tablet Take 2 tablets (40 mg total) by mouth daily. 30 tablet 4 Active amLODIPine (NORVASC) 5 MG tablet Take 1 tablet (5 mg total) by mouth daily. 4 Active lisinopril (PRINIVIL) 20 MG tablet Take 1 tablet (20 mg total) by mouth daily. DIRECTED 4 Active Active Problems Problem Noted Date Diagnosed Date Acute CHF (congestive heart failure) ([facility] S/HCC) 02/03/2023 Essential hypertension 01/07/2023 3 Overview (02/04/2023): Last Assessment & Plan: Impression: Chronic and stable. Plan: Continue Zestoretic, metoprolol Localized edema 01/07/2023 02/04/2023 Overview (02/04/2023): Last Assessment & Plan: Impression: Patient continues to have bilateral lower extremity edema with no open ulcerations noted. Patient has been compliant with utilizing compression therapy and leg elevation for edema control. Plan: Recommend patient to continue utilizing compression therapy to include Tubigrip and Willie bandage as well as leg elevation for edema control. If no improvement seen, we will recommend evaluation for compression pumps. Mixed hyperlipidemia 01/07/2023 02/04/2023 Overview (02/04/2023): Last Assessment & Plan: Impression: Chronic stable. Plan: Continue pravastatin PVD (peripheral vascular disease) 01/07/2023 02/04/2023 Overview (02/04/2023): Last Assessment & Plan: Impression: Patient complains of weakness to bilateral lower extremities as well as intermittent claudication to her lower extremities at calf level however is non life limiting. No open ulcerations are noted. Biphasic waveforms are noted to the left lower extremity. Plan: No surgical interventions indicated at this time. -Recommend a walking program, - Continue ongoing risk factor modifications. -patient follow-up in 6 months for re-evaluation with repeat lower extremity arterial Doppler in [place]. E-coli UTI 08/29/2022 Sepsis due to Escherichia co li without acute organ dysfunction ([facility]) 08/29/2022 Pyelonephritis 08/26/2022 Encounters Date Type Department Care Team Description 03/21/2024 Telephone [facility] [address], [place] [facility] [place] [address] Susan Desai FNP Results 03/20/2024 10:30 AM BABY NURSE [facility] [address] [place] [address] Susan Desai FNP CHF; Aortic Valve Disorder; Mitral Valve Disorders; Hypertension 03/20/2024 Travel 03/16/2024 12:48 PM BABY NURSE - 03/16/2024 11:59 PM BABY NURSE Hospital Encounter [facility] Ultrasound [address] [place] [address] Jhonny Reese MD Discharge Disposition: Home or Self Care (Routine Discharge) 03/16/2024 Travel from Last 3 Months Immunizations Immunization Administration Dates Next Due Influenza (Generic) 11/27/2019,11/29/2018 Influenza Adult (Generic) 11/25/2019,01/05/2014 MODERNA COVID-19 (12+) MRNA, LNP-S, PF, 100 MCG/ 0.5 ML DOSE 05/03/2020,04/05/2020 Pneumococcal (Pneumovax 23) 12/23/2010 Pneumococcal (Prevnar 13) 11/02/2014 Tdap (Boostrix) 10/24/2021 Family History Medical History Relation Comments Heart Attack Father cad Father Relation Status Comments Father Social History Tobacco Use Types Packs/Day Years Used Date Smoking Tobacco: Never Smokeless Tobacco: Never Tobacco Cessation:Counseling Given: Not Answered Alcohol Use Standard Drinks/Week Comments Never 0 (1 standard drink = 0.6 oz pur e alcohol) [facility] Utilities Answer Date Recorded In the past 12 months has e electric, gas, oil, or water [employer] threatened to shut off services in your [...] 08/26/2022 How often do you attend chur or caodaism services? More than 4 times per year 08/26/2022 Do you belong to any clubs o r organizations such as episcopalian groups, unions, fraternal or athletic groups, or [...] Recorded Patient Health Questionnaire-2 Score 0 08/26/2022 [facility] - Occupational Stress Questionnaire Answer Date [...] place to sleep or slept in a jail (including now)? No 02/04/2023 Comments No Sex and Gender Information Value Date Recorded Sex Assigned at Female 03/16/2024 12:42 PM BABY NURSE Legal Sex Female 11:51 PM CDT Gender Identity Not on file Sexual Orientation Not on file Last Filed Vital Signs Vital Sign Reading Time Taken Comments Blood Pressure 138/60 03/20/2024 10:14 AM BABY NURSE Pulse 70 03/20/2024 10:14 AM BABY NURSE Temperature 37.2 C (99 F) 02/06/2023 11:56 AM BABY NURSE Respiratory Rate 20 02/06/2023 11:56 AM BABY NURSE Oxygen Saturation 94% 02/06/2023 11:56 AM BABY NURSE Inhaled Oxygen Concentration - - Weight 86.2 kg (190 lb) 03/20/2024 10:14 AM BABY NURSE Height 160 cm (5' 3 ) 03/20/2024 10:14 AM BABY NURSE Body Mass Index 33.66 03/20/2024 10:14 AM BABY NURSE Plan of Treatment Upcoming Encounters Date Type Department Care Team (Late st Contact Info) Description 09/18/2024 9:30 AM CDT [facility] [address] [place] [id number] Jhonny Reese MD [facility] [address] [place] [address] Health Maintenance Due Date Last Done Comments Zoster Vaccines (1 of 2) 07/04/1985 Annual Medicare Wellness Visit 07/04/2000 RSV Immunization or 60+ Years (1 - 1-dose 75+ series) 07/04/2010 COVID-19 Vaccine ( - 2023-2 5 season) 2023 05/03/2020, 04/05/2020 DTaP, Tdap and Td Vaccines ( 2 - Td or Tdap) 10/25/2031 10/24/2021 Pneumococcal Vaccine: 50+ Years Completed 11/02/2014, 12/23/2010 Meningococcal B Vaccine Aged Out No l onger eligible based on patient's age to complete this topic Meningococcal Vaccine Aged Out No mikel parag eligible based on patient's age to complete this topic RSV Immunizations Under 20 Months Aged Out No longer eligible b ased on patient's age to complete this topic Procedures Procedure Name Priority Date/Time Associated Diagnosis Comments USE ECHOCARDIOGRAM W CON Routine 03/16/2024 1:56 PM BABY NURSE Aortic valve insufficiency, etiology of cardiac valve disease unspecified Mitral valve insufficiency, unspecified etiology from Last 3 Months Results * USE ECHOCARDIOGRAM W CON (03/16/2024 1:56 PM BABY NURSE) Anatomical Region Laterality Modality NA Ultrasound 03/16/2024 1:02 PM BABY NURSE Narrative 03/17/2024 6:47 PM BABY NURSE MARK ROMERO Pat.Name: Nakita Gates.ID: [id number] .Date: 03/16/2024 Refer.MD: Hailee, [facility] Exam Time: 1:02:00 PM Study Type:OUTREACH Height: 63 in Weight: 174 lb BSA: 1.82 m2 Age: 5 1935,88Y Sex: F Sonogrphr: Ls Pat. Stat.:Outpatient Reason for Study: Procedures: 2D, M-mode, Doppler, Color Flow, Myocardial contrast was used to enhance endocardial definition. Study performed at [place], [place] and interpreted by [facility]. ++++++++++++++++++++++++++++++++++++ SUMMARY: ++++++++++++++++++++++++++++++++++++ The left ventricular size is normal. The left ventricular systolic function is normal. Estimated left ventricular ejection fraction is 55-60%. Left ventricular diastolic function is abnormal (grade 2 - pseudonormal pattern). Wall motion appears normal in all segments. The left atrial size is mildly enlarged. No evidence of aortic valve stenosis. The peak velocity across the aortic valve measures 1.8m/sec with a peak gradient of 13mmHg and a mean gradient of 7mmHg. The calculated aortic valve area is 2.2 cm2. Moderate aortic regurgitation. Mild calcification of aortic valve leaflets. Moderate mitral regurgitation. No evidence of mitral valve stenosis. Severely calcified anterior and posterior mitral annulus. Mild to moderate tricuspid regurgitation. Unable to reliably quantitate pulmonary systolic pressure. ++++++++++++++++++++++++++++++++++++ FINDINGS: ++++++++++++++++++++++++++++++++++++ LV: The left ventricular size is normal. The left ventricular systolic function is normal. Estimated left ventricular ejection fraction is 55-60%. Left ventricular diastolic function is abnormal (grade 2 - pseudonormal pattern). WM: Wall motion appears normal in all segments. RV: The right ventricular size is normal. Right ventricular systolic function is normal. LA: The left atrial size is mildly enlarged. RA: The right atrial size is normal. BALBIR: No evidence of pericardial effusion. AO: Aorta is normal. PA: Estimated right atrial pressure of 8 mmHg. Unable to reliably quantitate pulmonary systolic pressure. SVn: Inferior vena cava is normal. Inferior vena cava shows <50% collapse with respiration consistent with elevated right atrial pressure. AV: The aortic valve is trileaflet. No evidence of aortic valve stenosis. The peak velocity across the aortic valve measures 1.8m/sec with a peak gradient of 13mmHg and a mean gradient of 7mmHg. The calculated aortic valve area is 2.2 cm2. Moderate aortic regurgitation. Mild calcification of aortic valve leaflets. Aortic valve calcification with normal systolic leaflet excursion. The aortic valve not well visualized. MV: Structurally normal mitral valve. Moderate mitral regurgitation. No evidence of mitral valve stenosis. Severely calcified anterior and posterior mitral annulus. Mild calcification of mitral valve leaflets. Myxomatous degeneration of mitral valve. PV: Trace pulmonic regurgitation. TV: Structurally normal tricuspid valve. Mild to moderate tricuspid regurgitation. <Electronic Signature> 03/17/2024 06:47 PM Eric Peralta M.D. Procedure Note Eric Peralta MD - 03/17/2024 MARK ROMERO Pat.Name: Nakita Gates [facility].ID: [id number] .Date: 03/16/2024 Refer.MD: Hailee, [facility] Exam Time: 1:02:00 PM Study Type:[facility] Height: 63 in Weight: 174 lb BSA: 1.82 m2 Age: 5 1935,88Y Sex: F Sonogrphr: Ls Pat. Stat.:Outpatient Reason for Study: Procedures: 2D, M-mode, Doppler, Color Flow, Myocardial contrast was used to enhance endocardial definition. Study performed at [place], [place] and interpreted by [facility]. ++++++++++++++++++++++++++++++++++++ SUMMARY: ++++++++++++++++++++++++++++++++++++ The left ventricular size is normal. The left ventricular systolic function is normal. Estimated left ventricular ejection fraction is 55-60%. Left ventricular diastolic function is abnormal (grade 2 - pseudonormal pattern). Wall motion appears normal in all segments. The left atrial size is mildly enlarged. No evidence of aortic valve stenosis. The peak velocity across the aortic valve measures 1.8m/sec with a peak gradient of 13mmHg and a mean gradient of 7mmHg. The calculated aortic valve area is 2.2 cm2. Moderate aortic regurgitation. Mild calcification of aortic valve leaflets. Moderate mitral regurgitation. No evidence of mitral valve stenosis. Severely calcified anterior and posterior mitral annulus. Mild to moderate tricuspid regurgitation. Unable to reliably quantitate pulmonary systolic pressure. ++++++++++++++++++++++++++++++++++++ FINDINGS: ++++++++++++++++++++++++++++++++++++ LV: The left ventricular size is normal. The left ventricular systolic function is normal. Estimated left ventricular ejection fraction is 55-60%. Left ventricular diastolic function is abnormal (grade 2 - pseudonormal pattern). WM: Wall motion appears normal in all segments. RV: The right ventricular size is normal. Right ventricular systolic function is normal. LA: The left atrial size is mildly enlarged. RA: The right atrial size is normal. BALBIR: No evidence of pericardial effusion. AO: Aorta is normal. PA: Estimated right atrial pressure of 8 mmHg. Unable to reliably quantitate pulmonary systolic pressure. SVn: Inferior vena cava is normal. Inferior vena cava shows <50% collapse with respiration consistent with elevated right atrial pressure. AV: The aortic valve is trileaflet. No evidence of aortic valve stenosis. The peak velocity across the aortic valve measures 1.8m/sec with a peak gradient of 13mmHg and a mean gradient of 7mmHg. The calculated aortic valve area is 2.2 cm2. Moderate aortic regurgitation. Mild calcification of aortic valve leaflets. Aortic valve calcification with normal systolic leaflet excursion. The aortic valve not well visualized. MV: Structurally normal mitral valve. Moderate mitral regurgitation. No evidence of mitral valve stenosis. Severely calcified anterior and posterior mitral annulus. Mild calcification of mitral valve leaflets. Myxomatous degeneration of mitral valve. PV: Trace pulmonic regurgitation. TV: Structurally normal tricuspid valve. Mild to moderate tricuspid regurgitation. <Electronic Signature> 03/17/2024 06:47 PM Eric Peralta M.D. Jhonny Reese MD ECHO Final Resul t from Last 3 Months Insurance MEDICARE [facility] Advance Directives Documents on File Type Date Recorded Patient Trader Expl anation Advance Directives and Livin g Will 08/28/2022 9:22 AM 06/18/11 POA-HC * Full Code (Latest Code Status on File) Date Activated Date Inactivated Comments 02/04/2023 10:17 AM 02/06/2023 4:09 PM * Full Code Date Activated Date Inactivated Comments 08/26/2022 4:05 PM 08/30/2022 3:50 PM Care Teams Sizing Sponger Relationship Specialty Start Date End Date Eliu Vicente MD [address] [place] [address] PCP - General FAMILY PRACTICE 09/17/21
--- OUTSIDE RECORDS SUMMARY | 2024-06-13 07:41 | XMS_ITS | Clinical Summary ---
Author Organization [facility] Address [address] [place] [phone] Phone Care Team Providers Care Shipping Receiving Clerk Name Role Phone Eliu Vicente MD Primary Care Provider [phone] Allergies Active Allergy Reactions Criticality Noted Date Comments Penicillins Rash Medium 07/09/2021 hives Sulfa Antibiotics Rash Medium 07/09/2021 Medications pravastatin (PRAVACHOL) 10 MG tablet Take 10 mg by mouth 1 (one) time each day 06/13/2021 Active Multiple Vitamin (multivitamin) capsule Take 1 capsule by mouth daily Active metoprolol succinate XL (TOPROL-XL) 25 MG 24 hr tablet TAKE 1 1/2 TABLETS (37.5) BY MOUTH EVERY DAY 06/24/2021 Active lisinopril-hydr oCHLOROthiazide (PRINZIDE) 20-12.5 MG per tablet Take 2 tablets by mouth 1 (one) time each day 04/03/2021 Active latanoprost (XALATAN) 0.005 % ophthalmic solution INSTILL 1 DROP INTO BOTH EYES EVERY EVENING 06/25/2021 Active calcium carbonate-vitam in D (Oscal 500/200 D-3) 500-200 MG-UNIT per tablet 12/15/2013 Active Active Problems Problem Noted Date Diagnosed Date Primary osteoarthritis of left hip 02/16/2019 Overview (07/09/2021): Added automatically from request for surgery [id number] Patient encounter status 11/05/2017 Lateral epicondylitis of left elbow 11/02/2017 Primary osteoarthritis of right knee 05/17/2017 Bilateral primary osteoarthritis of knee 017 Immunizations Immunization Administration Dates Next Due Influenza, Unspecified 11/29/2018 Tdap 10/24/2021 Family History Medical History Relation Comments Coronary artery disease Father Diabetes mellitus Father Relation Status Comments Father Social History Tobacco Use Types Packs/Day Years Used Date Smoking Tobacco: Never Smokeless Tobacco: Never Tobacco Cessation:Counseling Given: Not Answered Alcohol Use Standard Drinks/Week Comments Never 0 (1 standard drink = 0.6 oz pur e alcohol) Comments Unknown Sex and Gender Information Value Date Recorded Sex Assigned at Not on file Legal Sex Female 12:05 PM MDT Gender Identity Not on file Sexual Orientation Not on file Last Filed Vital Signs Vital Sign Reading Time Taken Comments Blood Pressure 136/78 01/14/2022 9:44 AM 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 ENGINEER 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 [employer] Pulse - - Temperature 35.9 C (96.6 F) 01/14/2022 9:44 AM AEROSPACE ENGINEER OFFICER [employer] Respiratory Rate 18 01/14/2022 9:44 AM AEROSPACE ENGINEER OFFICER [employer] Oxygen Saturation - - Inhaled Oxygen Concentration - - Weight 90.7 kg (200 lb) 01/14/2022 9:44 AM AEROSPACE ENGINEER OFFICER [employer] Height 160 cm (5' 3 ) 01/14/2022 9:44 AM AEROSPACE ENGINEER OFFICER [employer] Body Mass Index 35.43 01/14/2022 9:44 AM AEROSPACE ENGINEER OFFICER [employer]ENT Plan of Treatment Health Maintenance Due Date Last Done Comments Pneumococcal PPSV23/PCV13 65 + Years / Low and Medium Risk (1 of 4 - PCV) 07/04/1985 COVID-19 Vaccine ( season) 10/31/202306/2020, 04/05/2020 Influenza Vaccine (Season Ended) 2024 11/30/19 19 Insurance MEDICARE [employer] Care Teams Shipping Receiving Clerk Relationship Specialty Start Date End Date Eliu Vicente MD [address] [place], [place] [id number] PCP - General Internal Medicine 06/23/21
--- OUTSIDE RECORDS SUMMARY | 2024-06-13 07:41 | XMS_ITS | Referral Summary ---
Author Organization [facility] Medical Office Building B Address [address] [place] [address] Care Team Providers Care Pnp Name Role Phone Eliu Vicente MD Primary Care Provide r Eleanor Cruz PTA Unavailable Unavailable Melva Knight Unavailable [phone] Encounters Date Type Department Care Team Description 05/02/2024 9:15 AM CLINICAL DOCUMENTATION IMPROVEMENT SPECIALIST Office Visit [facility] Orthopedics and Sports Medicine [address] [facility] [address] [place] [address] Les Crooks MD Primary osteoarthritis of left knee (Primary Dx); Trochanteric bursitis, left hip 04/16/2024 5:45 PM CLINICAL DOCUMENTATION IMPROVEMENT SPECIALIST Office Visit [facility] Convenient Care at [address] [address] Tina Wilson NP Influenza A (Primary Dx) from Last 3 Months Allergies Active Allergy Reactions Criticality Noted Date Comments Nystatin Other (See comments) Low 08/26/2022 Burning pain per patient Penicillins Rash Medium 09/17/2021 hives Sulfa (Sulfonamide Antibiotics) Rash Medium Medications pravastatin (PRAVACHOL) 40 mg tablet take 1 tablet by oral route every day 0 0 4 Active Additional Information Patient taking differently: 20 mg oral Daily, Reported on 05/02/2024 latanoprost (XALATAN) 0.005 % ophthalmic solution Administer 1 drop into both eyes daily 7 Active lisinopril-hydro CHLOROthiazide (PRINZIDE,ZESTOR ETIC) 20-12.5 mg per tablet Take 2 tablets by mouth daily 7 Active multivitamin capsule Take 1 capsule by mouth daily Active metoprolol XL (TOPROL-XL) 25 mg 24 hr tablet Take 1 tablet (25 mg total) by mouth daily Active nitrofurantoin monohydrate (MACROBID) 100 mg capsuleIndicatio ns:Urinary Tract/Genitourin sukh Infection Take 1 capsule (100 mg total) by mouth 2 (two) times a day 14 capsule 0 Active Additional Information Patient not taking.Reported on 05/02/2024 Active Problems Problem Noted Date Diagnosed Date PVD (peripheral vascular disease) 01/07/2023 Assessment & Plan (02/03/2023 4:05 PM CLINICAL DOCUMENTATION IMPROVEMENT SPECIALIST): Impression: Patient complains of weakness to bilateral [...] with repeat lower extremity arterial Doppler in [place]. Assessment & Plan (01/07/2023 10:16 AM CLINICAL DOCUMENTATION IMPROVEMENT SPECIALIST): Impression: Patient complains of symptoms of claudication at calf level to bilateral lower extremity with her right lower extremity worse than her left. Patient underwent an KATHY at an outside facility which showed an KATHY of 0.54 to left lower extremity. Patient has audible signals to distal pulses of both lower legs. Plan: Recommend patient to follow-up in 2 weeks with a lower extremity arterial Doppler. Localized edema 01/07/2023 Assessment & Plan (02/03/2023 4:02 PM CLINICAL DOCUMENTATION IMPROVEMENT SPECIALIST): Impression: Patient continues to have bilateral lower extremity edema with no open ulcerations noted. Patient has been compliant with utilizing compression therapy and leg elevation for edema control. Plan: Recommend patient to continue utilizing compression therapy to include Tubigrip and Willie bandage as well as leg elevation for edema control. If no improvement seen, we will recommend evaluation for compression pumps. Assessment & Plan (01/07/2023 10:18 AM CLINICAL DOCUMENTATION IMPROVEMENT SPECIALIST): Impression: Patient has 2+ pitting edema to bilateral lower extremities. No open ulcerations are noted. Serous drainage is noted to left lower extremity. Plan: Recommend compression therapy and leg elevation for edema control. -educated patient and her family on using compression wraps with Willie bandages to both legs. Essential hypertension 01/07/2023 Assessment & Plan (01/07/2023 10:19 AM CLINICAL DOCUMENTATION IMPROVEMENT SPECIALIST): Impression: Chronic and stable. Plan: Continue Zestoretic, metoprolol Mixed hyperlipidemia 01/07/2023 Assessment & Plan (02/03/2023 4:02 PM CLINICAL DOCUMENTATION IMPROVEMENT SPECIALIST): Impression: Chronic stable. Plan: Continue pravastatin Assessment & Plan (01/07/2023 10:19 AM CLINICAL DOCUMENTATION IMPROVEMENT SPECIALIST): Impression: Chronic and stable. Plan: Continue pravastatin. Primary osteoarthritis of left hip 02/16/2019 Overview (02/16/2019): Added automatically from request for surgery [id number] Aftercare following right knee joint replacement surgery 11/05/2017 Lateral epicondylitis of left elbow 11/02/2017 Primary osteoarthritis of right knee 05/17/2017 Bilateral primary osteoarthritis of knee 017 Immunizations Immunization Administration Dates Next Due Influenza, Unspecified 11/29/2018 Social History Tobacco Use Types Packs/Day Years Used Date Smoking Tobacco: Never Smokeless Tobacco: Never Tobacco Cessation:Counseling Given: Not Answered Alcohol Use Standard Drinks/Week Comments Yes 0 (1 standard drink = 0.6 oz pur e alcohol) seldom PHQ-2 Answer Date Recorded PHQ-2 Score 0 03/08/2019 Comments Unknown Sex and Gender Information Value Date Recorded Sex Assigned at Not on file Legal Sex Female 8:56 PM CLINICAL DOCUMENTATION IMPROVEMENT SPECIALIST Gender Identity Not on file Sexual Orientation Not on file Last Filed Vital Signs Vital Sign Reading Time Taken Comments Blood Pressure 161/62 05/02/2024 8:57 AM CLINICAL DOCUMENTATION IMPROVEMENT SPECIALIST Pulse 84 05/02/2024 8:57 AM CLINICAL DOCUMENTATION IMPROVEMENT SPECIALIST Temperature 37.1 C (98.8 F) 04/16/2024 5:28 PM CLINICAL DOCUMENTATION IMPROVEMENT SPECIALIST Respiratory Rate 20 04/16/2024 5:28 PM CLINICAL DOCUMENTATION IMPROVEMENT SPECIALIST Oxygen Saturation 98% 04/16/2024 5:28 PM CLINICAL DOCUMENTATION IMPROVEMENT SPECIALIST Inhaled Oxygen Concentration - - Weight 86.2 kg (190 lb) 05/02/2024 8:57 AM CLINICAL DOCUMENTATION IMPROVEMENT SPECIALIST Height 157.5 cm (5' 2 ) 05/02/2024 8:57 AM CLINICAL DOCUMENTATION IMPROVEMENT SPECIALIST Body Mass Index 34.75 05/02/2024 8:57 AM CLINICAL DOCUMENTATION IMPROVEMENT SPECIALIST Plan of Treatment Not on file Medical Devices Implanted Type Area Wet Mix Operator Device Identifier Shelf Expiration Date Model / Serial / Lot [employer] [id number] Smartset High Viscosity Cement 40gm Bone Gentamicin - [id number] Implanted:Qty: 1 on 10/18/2017 by Les Crooks MD at [facility] Bone Cement Right: Patella [employer] 11/28/2018 [id number] / / [id number] [employer] [id number] Attune Cemented Posterior Stabilize Knee Right 5 Component - [id number] Implanted:Qty: 1 on 10/18/2017 by Les Crooks MD at [facility] Right: Knee [employer] 04/29/2027 [id number] / / [id number] [employer] [id number] Attune S+ Cement Fix Bearing Knee 5 Baseplate Tibial - [id number] Implanted:Qty: 1 on 10/18/2017 by Les Crooks MD at [facility] Right: Knee [employer] 05/30/2027 [id number] / / [id number] [employer] [id number] Attune 35mm Cemented Medialize Knee Dome Patellar Aox Sterile - [id number] Implanted:Qty: 1 on 10/18/2017 by Les Crooks MD at [facility] Right: Knee [employer] 07/29/2022 [id number] / / [id number] [employer] [id number] Attune 5mm Posterior Stabilize Fix Bearing Knee 5 Insert Tibial - [id number] Implanted:Qty: 1 on 10/18/2017 by Les Crooks MD at [facility] Right: Knee [employer] 02/28/2022 [id number] / / [id number] [employer] [id number] [place] 52mm 36mm Hip Neutral Liner Acetabular Altrx Sterile Latex Free - [id number] Implanted:Qty: 1 on 03/08/2019 by Les Crooks MD at [facility] Left: Hip [employer] 01/29/2024 [id number] / / [id number] [employer] [id number] [place] 52mm Sector Hip Shell Acetabular Gription Sterile Latex Free - [id number] Implanted:Qty: 1 on 03/08/2019 by Les Crooks MD at [facility] Left: Hip [employer] 11/28/2028 [id number] / / [id number] [employer] [id number] Actis Collar Hip 4 High Offset Stem Femoral - [id number] Implanted:Qty: 1 on 03/08/2019 by Les Crooks MD at [facility] Left: Hip [employer] 01/28/2029 [id number] / / [id number] [employer] [id number] Articul/Dequan 36mm Cementless Hip +1.5mm 12/14 Taper Head Femoral Latex Free - [id number] Implanted:Qty: 1 on 03/08/2019 by Les Crooks MD at [facility] Left: Hip [employer] 12/30/2023 [id number] / / [id number] Procedures Procedure Name Priority Date/Time Associated Diagnosis Comments NM ARTHROCENTESIS ASPIR&/INJ MAJOR JT/BURSA W/O US Routine 05/02/2024 9:15 AM CLINICAL DOCUMENTATION IMPROVEMENT SPECIALIST Trochanteric bursitis, left hip NM ARTHROCENTESIS ASPIR&/INJ MAJOR JT/BURSA W/O US Routine 05/02/2024 9:15 AM CLINICAL DOCUMENTATION IMPROVEMENT SPECIALIST Primary osteoarthritis of left knee POC INFLUENZA A/B, COVID-19 ANTIGEN Routine 04/16/2024 5:35 PM CLINICAL DOCUMENTATION IMPROVEMENT SPECIALIST Influenza A from Last 3 Months Results * NM ARTHROCENTESIS ASPIR&/INJ MAJOR JT/BURSA W/O US (05/02/2024 9:15 AM CLINICAL DOCUMENTATION IMPROVEMENT SPECIALIST) Narrative Les Crooks MD - 05/02/2024 9:15 AM CLINICAL DOCUMENTATION IMPROVEMENT SPECIALIST Les Crooks MD 05/02/2024 2:04 PM Large Joint (Hip, Knee, Shoulder) Injection: L knee Performed by: Les Crooks MD Authorized by: Les Crooks MD Large Joint Injection/Aspiration: Consent Given by: Patient Site marked: the procedure site was marked Timeout: prior to procedure the correct patient, procedure, and site was verified Verbal consent obtained: Yes Supporting Documentation: Indications: Pain Procedure Details: Location: Knee Site: L knee Needle Size: 22 G Approach: Anterolateral Ultrasound guided: No Fluroscopic guidance: No Medications: 80 mg methylPREDNISolone acetate 80 mg/mL; 3 mL lidocaine 20 mg/mL (2 %) Patient tolerance: Patient tolerated the procedure well with no immediate complications Les Crooks MD IN CLINIC/BEDSIDE ORDERA BLES Final Result * NM ARTHROCENTESIS ASPIR&/INJ MAJOR JT/BURSA W/O US (05/02/2024 9:15 AM CLINICAL DOCUMENTATION IMPROVEMENT SPECIALIST) Narrative Les Crooks MD - 05/02/2024 9:15 AM CLINICAL DOCUMENTATION IMPROVEMENT SPECIALIST Les Crooks MD 05/02/2024 2:04 PM Greater trochanteric bursa injection Performed by: Les Crooks MD Authorized by: Les Crooks MD Greater Trochanteric Bursa Injection: Consent Given by: Patient Site marked: the procedure site was marked Timeout: prior to procedure the correct patient, procedure, and site was verified Verbal consent obtained?: Yes Prior to the start of the procedure, verbal verification by the procedure participant(s) confirmed (as applicable): corect patient idenity; correct site/side marked and visible; agreement on the procedure to be done; correct patient positioning; an accurate procedure consent form, relevant images and results correctly labeled and displayed; any safety precautions based on clinical history and/or medication use have been addressed.: Supporting Documentation: Indications: Pain and therapeutic Procedure Details: Site: Left Greater Trochanteric Bursa Prep: patient was prepped and draped in usual sterile fashion Patient position: Sidelying Needle Size: 22 G Ultrasound guidance: No Approach: Lateral Medications: 80 mg methylPREDNISolone acetate 80 mg/mL; 4 mL lidocaine 20 mg/mL (2 %) Patient tolerance: Patient tolerated the procedure well with no immediate complications us Les Crooks MD IN CLINIC/BEDSIDE ORDERA BLES Final Result * (ABNORMAL) POC Influenza A/B, COVID-19 antigen (04/16/2024 5:35 PM CLINICAL DOCUMENTATION IMPROVEMENT SPECIALIST) Influenza A Ag, POC Positive(A) Negative [facility] Influenza B Ag, POC Negative Negative [facility] COVID-19 Ag POC Presumptive Negative Presumptive Negative, Invalid [facility] Nasal 04/16/2024 5:35 PM CLINICAL DOCUMENTATION IMPROVEMENT SPECIALIST us Tina Wilson NP POINT OF CARE TEST ORDERABLES Final Result Performing Organization Address City/State/[facility] Co de Phone Number [facility] [place] [address], [facility] from Last 3 Months Insurance MEDICARE [facility] Address: [address] [address] [place] [address] MEDICARE COMMERCIAL GENERIC Advance Directives For more information, please contact: [phone] * Full Code (Latest Code Status on File) Date Activated Date Inactivated Comments 03/08/2019 12:49 PM 03/09/2019 7:22 PM * Full Code Date Activated Date Inactivated Comments 10/18/2017 3:37 PM 10/19/2017 5:31 PM Care Teams Pnp Relationship Specialty Start Date End Date Eliu Vicente MD [address] [place] [address] PCP - General 12/15/13 Eleanor Cruz PTA Multi Media Specialist Physical Therapy 10/11/17 Melva Knight, PA Orthopedic Surgery 03/09/19
--- OUTSIDE RECORDS SUMMARY | 2024-06-13 07:41 | XMS_ITS | Clinical Summary ---
Author Organization [facility] Medical Office Building B Address [address] [place] [address] Care Team Providers Care Policy Manager Name Role Phone Eliu Vicente MD Primary Care Provide r Eleanor Cruz PTA Unavailable Unavailable Melva Knight Unavailable [phone] Allergies Active Allergy Reactions Criticality Noted Date [...] 01/07/2023 Assessment & Plan (02/03/2023 4:05 PM YOUTH MINISTRY DIRECTOR): Impression: Patient complains of weakness to bilateral [...] with repeat lower extremity arterial Doppler in [place]. Assessment & Plan (01/07/2023 10:16 AM YOUTH MINISTRY DIRECTOR): Impression: Patient complains of symptoms of claudication [...] 01/07/2023 Assessment & Plan (02/03/2023 4:02 PM YOUTH MINISTRY DIRECTOR): Impression: Patient continues to have bilateral lower [...] pumps. Assessment & Plan (01/07/2023 10:18 AM YOUTH MINISTRY DIRECTOR): Impression: Patient has 2+ pitting edema to bilateral lower extremities. No open ulcerations are noted. Serous drainage is noted to left lower extremity. Plan: Recommend compression therapy and leg elevation for edema control. -educated patient and her family on using compression wraps with Willie bandages to both legs. Essential hypertension 01/07/2023 Assessment & Plan (01/07/2023 10:19 AM YOUTH MINISTRY DIRECTOR): Impression: Chronic and stable. Plan: Continue Zestoretic, metoprolol Mixed hyperlipidemia 01/07/2023 Assessment & Plan (02/03/2023 4:02 PM YOUTH MINISTRY DIRECTOR): Impression: Chronic stable. Plan: Continue pravastatin Assessment & Plan (01/07/2023 10:19 AM YOUTH MINISTRY DIRECTOR): Impression: Chronic and stable. Plan: Continue pravastatin. Primary osteoarthritis of left hip 02/16/2019 Overview (02/16/2019): Added automatically from request for surgery [id number] Aftercare following right knee joint replacement surgery 11/05/2017 Lateral epicondylitis of left elbow 11/02/2017 Primary osteoarthritis of right knee 05/17/2017 Bilateral primary osteoarthritis of knee 017 Encounters Date Type Department Care Team Description 05/02/2024 9:15 AM YOUTH MINISTRY DIRECTOR Office Visit [facility] [address] [place] [phone] Les Crooks MD Primary osteoarthritis of left knee (Primary Dx); Trochanteric bursitis, left hip 04/16/2024 5:45 PM YOUTH MINISTRY DIRECTOR Office Visit [facility] Care at [address] [address] Tina Wilson NP Influenza A (Primary Dx) from Last 3 Months Immunizations Immunization Administration Dates Next Due Influenza, Unspecified 11/29/2018 Surgical History Surgery Date Site/Laterality Comments APPENDECTOMY Appendectomy CHOLECYSTECTOMY Cholecystectomy HYSTERECTOMY hysterectomy HIP ARTHROPLASTY 03/01/2013 - 02/28/2014 Hip arthroplasty CARPAL TUNNEL RELEASE Right Carpal tunnel release JOINT REPLACEMENT right hip Medical History Medical History Date Comments Hypertension Hypertension Hx Other Medical high cholestero l Hx Other Medical back pain Hyperlipidemia Family History Medical History Relation Name Comments Heart disease Other 1 Family history of heart problems; Hypertension Other 2 Family history of Hypertension; Cancer Other 3 Family history of cancer; Diabetes Other 4 Family history of diabetes; Arthritis Other 5 Family history of arthritis; Relation Name Status Comments Other 1 Other 2 Other 3 Other 4 Other 5 Social History Tobacco Use Types Packs/Day Years [...] on file Legal Sex Female 8:56 PM YOUTH MINISTRY DIRECTOR Gender Identity Not on file Sexual Orientation Not on file Obstetrics History Last Filed Vital Signs Vital Sign Reading Time Taken Comments Blood Pressure 161/62 05/02/2024 8:57 AM YOUTH MINISTRY DIRECTOR Pulse 84 05/02/2024 8:57 AM YOUTH MINISTRY DIRECTOR Temperature 37.1 C (98.8 F) 04/16/2024 5:28 PM YOUTH MINISTRY DIRECTOR Respiratory Rate 20 04/16/2024 5:28 PM YOUTH MINISTRY DIRECTOR Oxygen Saturation 98% 04/16/2024 5:28 PM YOUTH MINISTRY DIRECTOR Inhaled Oxygen Concentration - - Weight 86.2 kg (190 lb) 05/02/2024 8:57 AM YOUTH MINISTRY DIRECTOR Height 157.5 cm (5' 2 ) 05/02/2024 8:57 AM YOUTH MINISTRY DIRECTOR Body Mass Index 34.75 05/02/2024 8:57 AM YOUTH MINISTRY DIRECTOR Plan of Treatment Health Maintenance Due Date Last Done Comments Fall Risk Assessment 1935 Hepatitis B Screening 07/04/1953 Zoster Vaccine (1 of 2) 07/04/1985 Well Visit 65+ 07/04/2000 Depression Screening 02/17/2020 02/16/2019 Covid-19 Vaccine (3 2023-2 5 season) 2023 05/03/2020, 04/05/2020 Influenza Vaccine (Season Ended) 2024 11/27/2019, 11/25/2019, 11/29/2018, Additional history exists DTaP/Tdap/Td Vaccine (2 - Td or Tdap) 10/25/2031 10/24/2021 Pneumococcal vaccine 65+ Completed 11/02/2014, 11/30 Medical Devices Implanted Type Area Client Care Manager Device Identifier Shelf Expiration Date Model / Serial / Lot [employer] [id number] Smartset High Viscosity Cement 40gm Bone Gentamicin - [id number] Implanted:Qty: 1 on 10/18/2017 by Les Crooks MD at [facility] Bone Cement Right: Patella [employer] 11/28/2018 [id number] / / [id number] [employer] [id number] Attune Cemented Posterior Stabilize Knee Right 5 Component - [id number] Implanted:Qty: 1 on 10/18/2017 by Les Crooks MD at [facility] Right: Knee [employer] 04/29/2027 [id number] / / [id number] [employer] [id number] Attune S+ Cement Fix Bearing Knee 5 Baseplate Tibial - [id number] Implanted:Qty: 1 on 10/18/2017 by Les Crooks MD at [facility] Right: Knee [employer] 05/30/2027 [id number] / / [id number] [employer] [id number] Attune 35mm Cemented Medialize Knee Dome Patellar Aox Sterile - [id number] Implanted:Qty: 1 on 10/18/2017 by Les Crooks MD at [facility] Right: Knee [employer] 07/29/2022 [id number] / / [id number] [employer] [id number] Attune 5mm Posterior Stabilize Fix Bearing Knee 5 Insert Tibial - [id number] Implanted:Qty: 1 on 10/18/2017 by Les Crooks MD at [facility] Right: Knee [employer] 02/28/2022 [id number] / / [id number] [employer] [id number] [place] 52mm 36mm Hip Neutral Liner Acetabular Altrx Sterile Latex Free - [id number] Implanted:Qty: 1 on 03/08/2019 by Les Crooks MD at [facility] Left: Hip [employer] 01/29/2024 [id number] / / [id number] [employer] [id number] [place] 52mm Sector Hip Shell Acetabular Gription Sterile Latex Free - [id number] Implanted:Qty: 1 on 03/08/2019 by Les Crooks MD at [facility] Left: Hip [employer] 11/28/2028 [id number] / / [id number] [employer] [id number] Actis Collar Hip 4 High Offset Stem Femoral - [id number] Implanted:Qty: 1 on 03/08/2019 by Les Crooks MD at [facility] Left: Hip [employer] 01/28/2029 [id number] / / [id number] [employer] [id number] Articul/Dequan 36mm Cementless Hip +1.5mm 02/11 Taper Head Femoral Latex Free - [id number] Implanted:Qty: 1 on 03/08/2019 by Les Crooks MD at [facility] Left: Hip [employer] 12/30/2023 [id number] / / [id number] Procedures Procedure Name Priority Date/Time Associated Diagnosis Comments NE ARTHROCENTESIS ASPIR&/INJ MAJOR JT/BURSA W/O US Routine 05/02/2024 9:15 AM YOUTH MINISTRY DIRECTOR Trochanteric bursitis, left hip NE ARTHROCENTESIS ASPIR&/INJ MAJOR JT/BURSA W/O US Routine 05/02/2024 9:15 AM YOUTH MINISTRY DIRECTOR Primary osteoarthritis of left knee POC INFLUENZA A/B, COVID-19 ANTIGEN Routine 04/16/2024 5:35 PM YOUTH MINISTRY DIRECTOR Influenza A from Last 3 Months Results * NE ARTHROCENTESIS ASPIR&/INJ MAJOR JT/BURSA W/O US (05/02/2024 9:15 AM YOUTH MINISTRY DIRECTOR) Narrative Les Crooks MD - 05/02/2024 9:15 AM YOUTH MINISTRY DIRECTOR Les Crooks MD 05/02/2024 2:04 PM Large [...] IN CLINIC/BEDSIDE ORDERA BLES Final Result * NE ARTHROCENTESIS ASPIR&/INJ MAJOR JT/BURSA W/O US (05/02/2024 9:15 AM YOUTH MINISTRY DIRECTOR) Narrative Les Crooks MD - 05/02/2024 9:15 AM YOUTH MINISTRY DIRECTOR Les Crooks MD 05/02/2024 2:04 PM Greater [...] Influenza A/B, COVID-19 antigen (04/16/2024 5:35 PM YOUTH MINISTRY DIRECTOR) Influenza A Ag, POC Positive(A) Negative [facility] Influenza B Ag, POC Negative Negative [facility] COVID-19 Ag POC Presumptive Negative Presumptive Negative, Invalid [facility] Nasal 04/16/2024 5:35 PM YOUTH MINISTRY DIRECTOR Tina Wilson TOOL MAINTENANCE TECHNICIAN POINT OF CARE TEST ORDERABLES Final Result [facility] [address] [place] [address], [facility] from Last 3 Months Insurance MEDICARE MEDICARE COMMERCIAL [facility] Advance Directives For more information, please contact: [phone] * Full Code (Latest Code Status on File) Date Activated Date Inactivated Comments 03/08/2019 12:49 PM 03/09/2019 7:22 PM * Full Code Date Activated Date Inactivated Comments 10/18/2017 3:37 PM 10/19/2017 5:31 PM Care Teams Policy Manager Relationship Specialty Start Date End Date Eliu Vicente MD [address] [place] [address] PCP - General 12/15/13 Eleanro Cruz PTA [employer] Physical Therapy 10/11/17 Melva Knight PA Orthopedic Surgery 03/09/19
[2024-06-13 08:04] LABS: Basophils Absolute Auto 0.07 K/mm3 (0.00-0.10); Basophils Percent Auto 0.8 % (0.0-1.0); Eosinophils Absolute Auto 0.72 K/mm3 (0.02-0.50); Eosinophils Percent Auto 8.6 % (1.0-6.0); Hematocrit 36.7 % (35.0-42.0); Hemoglobin 11.9 g/dL (11.7-13.8); Immature Granulocyte Absolute 0.06 K/mm3 (0.00-0.00); Immature Granulocyte Percent A 0.7 % (0.0-0.0); Lymphocytes Absolute Auto 2.37 K/mm3 (1.10-4.50); Lymphocytes Percent Auto 28.1 % (18.0-42.0); Mean Corpuscular HGB Conc 32.4 g/dL (32-36); Mean Corpuscular Hemoglobin 31.2 pg (27.0-31.0); Mean Corpuscular Volume 96.3 fL (78.0-102.0); Mean Platelet Volume 9.9 fl (9.2-11.8); Monocytes Absolute Auto 0.96 K/mm3 (0.10-0.90); Monocytes Percent Auto 11.4 % (2.0-11.0); Neutrophils Absolute Auto 4.24 K/mm3 (1.70-7.20); Neutrophils Percent Auto 50.4 % (50.0-70.0); Platelet Count Result 278 K/mm3 (150-420); Red Blood Count 3.81 M/mm3 (4.20-5.40); Red Cell Distribution Width 11.9 % (11.6-14.4); White Blood Count 8.4 K/mm3 (4.8-10.8)
[2024-06-13 08:20] LABS: Hemoglobin A1C 5.9 % (<5.7)
[2024-06-13 08:47] LABS: Alanine Aminotransferase 26 U/L (14-59); Albumin Level 3.2 g/dL (3.4-5.0); Alkaline Phosphatase 75 U/L (46-116); Anion Gap 9 mmol/L (4-12); Aspartate Amino Transferase 25 U/L (15-37); Bilirubin,Total 0.4 mg/dL (0.00-1.00); Blood Urea Nitrogen 42 mg/dL (7-18); Calcium 8.8 mg/dL (8.5-10.1); Carbon Dioxide 29 mmol/L (21-32); Chloride 104 mmol/L (98-108); Cholesterol 183 mg/dL (0-200); Estimated Glomerular Filt Rate 26; Glucose 90 mg/dL (70-99); HDL Direct 36 mg/dL (40-60); LDL Cholesterol Calculated 99 mg/dL (<130); Osmolality Calculated 304 mOsm/kg (285-295); Potassium 4.5 mmol/L (3.5-5.1); Sodium 142 mmol/L (136-145); Thyroid Stimulating Hormone 2.43 uIU/mL (0.36-3.74); Total Protein 7.8 g/dL (6.4-8.2); Triglycerides 238 mg/dL (0-150)
== END 2024-06-13 07:36 | disposition home or self-care (01) ==
LOC: CHSLAB 07:37
PROVIDERS: PCP Family Medicine; Visit Provider Family Medicine
DX: I10 Essential (primary) hypertension (principal); R73.9 Hyperglycemia, unspecified; E78.2 Mixed hyperlipidemia
CPT/HCPCS: 36415; 80053; 80061; 83036; 84443; 85025

== ENCOUNTER 2024-07-20 10:00 | Outpatient (CLI) | payer MEDICARE, SELFPAY ==
--- OUTSIDE RECORDS SUMMARY | 2024-07-20 10:09 | XMS_ITS | Clinical Summary ---
Author Organization [facility] Address [address] [place] [phone] Phone Care Team Providers Care Remote Sensing Technician Name Role Phone Eliu Vicente MD Primary Care Provider [phone] Allergies Active Allergy Reactions Criticality Noted Date [...] (07/09/2021): Added automatically from request for surgery [id number] Patient encounter status 11/05/2017 Lateral epicondylitis of [...] Comments Blood Pressure 136/78 01/14/2022 9:44 AM SLATE WORKER Pulse - - Temperature 35.9 C (96.6 F) 01/14/2022 9:44 AM SLATE WORKER Respiratory Rate 18 01/14/2022 9:44 AM SLATE WORKER Oxygen Saturation - - Inhaled Oxygen Concentration - - Weight 90.7 kg (200 lb) 01/14/2022 9:44 AM SLATE WORKER Height 160 cm (5' 3 ) 01/14/2022 9:44 AM SLATE WORKER Body Mass Index 35.43 01/14/2022 9:44 AM SLATE WORKER Plan of Treatment Health Maintenance Due Date Last Done Comments Pneumococcal PPSV23/PCV13 65 + Years / Low and Medium Risk (1 of 4 - PCV) 07/04/1985 COVID-19 Vaccine ( season) 10/31/202306/2020, 04/05/2020 Influenza Vaccine (Season Ended) 2024 11/30/19 19 Insurance MEDICARE GENERIC COMMERCIAL Care Teams Remote Sensing Technician Relationship Specialty Start Date End Date Eliu Vicente MD [address] [place], [place] [id number] PCP - General Internal Medicine 06/23/21
[2024-07-20 10:26] LABS: Creatinine Urine 99.5 mg/dL; Total Protein Urine Random 24 mg/dL; Ur Ttl Prot Creatinine Ratio 0.24 mg/mg (0-0.20)
[2024-07-20 10:41] LABS: Albumin Level 3.8 g/dL (3.5-5.1); Anion Gap 8 mmol/L (4-12); Blood Urea Nitrogen 27 mg/dL (7-17); Calcium 8.3 mg/dL (8.4-10.2); Carbon Dioxide 23 mmol/L (22-30); Chloride 105 mmol/L (98-107); Estimated Glomerular Filt Rate 28; Glucose 129 mg/dL (65-110); Osmolality Calculated 289 mOsm/kg (285-295); Phosphorus 4.4 mg/dL (2.5-4.5); Potassium 4.2 mmol/L (3.4-5.0); Sodium 136 mmol/L (137-145)
[2024-07-21 14:04] LABS: Parathyroid Intact 50 pg/mL (16-77)
[2024-07-22 01:43] LABS: Vitamin D 25 Hydroxy 36 ng/mL (30-100)
== END 2024-07-20 10:01 | disposition home or self-care (01) ==
LOC: CHSLAB 10:02
PROVIDERS: PCP Family Medicine; Visit Provider Internal Medicine Nephrology
DX: N18.4 Chronic kidney disease, stage 4 (severe) (principal); I12.9 Hypertensive chronic kidney disease with stage 1 through stage 4 chronic kidney disease, or unspecified chronic kidney disease; R80.9 Proteinuria, unspecified; N25.81 Secondary hyperparathyroidism of renal origin; E55.9 Vitamin D deficiency, unspecified
CPT/HCPCS: 36415; 80069; 82306; 82570; 83970; 84156

== ENCOUNTER 2024-08-31 15:06 | Outpatient (NON) | payer MEDICARE, SELFPAY ==
--- OUTSIDE RECORDS SUMMARY | 2024-08-31 15:10 | XMS_ITS | Clinical Summary ---
Author Organization [facility] Address [address] [place] [address] Care Team Providers Care Pump Erector Helper Name Role Phone Eliu Vicente MD Primary Care Provide r Eleanor Cruz PTA Unavailable Unavailable Melva Knight Unavailable [phone] Allergies Active Allergy Reactions Criticality Noted Date [...] Additional Information Patient not taking.Reported on 05/02/2024 Hospital, Clinic, or Other Facility Administered Medication Ordered Dose Route Frequency Start Date End Date Status lidocaine (XYLOCAINE) 20 mg/mL (2 %) injection 3 mLIndications:Admini stration of Local Anesthesia 3 mL One-Time Injection 08/03/2024 5 Ended lidocaine (XYLOCAINE) 20 mg/mL (2 %) injection 4 mLIndications:Admini stration of Local Anesthesia 4 mL OTHER One-Time Injection 08/03/2024 5 Ended methylPREDNISolone acetate (DEPO-medrol) injection 80 mgIndications:Trocha nteric bursitis, left hip 80 mg intra-artic One-Time Injection 08/03/2024 5 Ended methylPREDNISolone acetate (DEPO-medrol) injection 80 mgIndications:Primar y osteoarthritis of left knee 80 mg intra-artic One-Time Injection 08/03/2024 5 Ended Active Problems Problem Noted Date Diagnosed Date PVD (peripheral vascular disease) 01/07/2023 Assessment & Plan (02/03/2023 4:05 PM SKIN DRIER): Impression: Patient complains of weakness to bilateral [...] with repeat lower extremity arterial Doppler in [place]. Assessment & Plan (01/07/2023 10:16 AM SKIN DRIER): Impression: Patient complains of symptoms of claudication [...] 01/07/2023 Assessment & Plan (02/03/2023 4:02 PM SKIN DRIER): Impression: Patient continues to have bilateral lower [...] pumps. Assessment & Plan (01/07/2023 10:18 AM SKIN DRIER): Impression: Patient has 2+ pitting edema to bilateral lower extremities. No open ulcerations are noted. Serous drainage is noted to left lower extremity. Plan: Recommend compression therapy and leg elevation for edema control. -educated patient and her family on using compression wraps with Willie bandages to both legs. Essential hypertension 01/07/2023 Assessment & Plan (01/07/2023 10:19 AM SKIN DRIER): Impression: Chronic and stable. Plan: Continue Zestoretic, metoprolol Mixed hyperlipidemia 01/07/2023 Assessment & Plan (02/03/2023 4:02 PM SKIN DRIER): Impression: Chronic stable. Plan: Continue pravastatin Assessment & Plan (01/07/2023 10:19 AM SKIN DRIER): Impression: Chronic and stable. Plan: Continue pravastatin. Primary osteoarthritis of left hip 02/16/2019 Overview (02/16/2019): Added automatically from request for surgery [id number] Aftercare following right knee joint replacement surgery 11/05/2017 Lateral epicondylitis of left elbow 11/02/2017 Primary osteoarthritis of right knee 05/17/2017 Bilateral primary osteoarthritis of knee 017 Encounters Date Type Department Care Team Description 08/03/2024 11:20 AM CDT - 08/03/2024 11:59 PM CDT Hospital Encounter [facility] [address] [place] [phone] Discharge Disposition: Discharge to home or self care 08/03/2024 11:15 AM CDT Office Visit [facility] [address] [place] [phone] Les Crooks MD Trochanteric bursitis, left hip (Primary Dx); Right knee pain, unspecified chronicity; Primary osteoarthritis of left knee from Last 3 Months Immunizations Immunization Administration [...] on file Legal Sex Female 8:56 PM SKIN DRIER Gender Identity Not on file Sexual Orientation Not on file Obstetrics History Last Filed Vital Signs Vital Sign Reading Time Taken Comments Blood Pressure 161/62 05/02/2024 8:57 AM SKIN DRIER Pulse 84 05/02/2024 8:57 AM SKIN DRIER Temperature 37.1 C (98.8 F) 04/16/2024 5:28 PM SKIN DRIER Respiratory Rate 20 04/16/2024 5:28 PM SKIN DRIER Oxygen Saturation 98% 04/16/2024 5:28 PM SKIN DRIER Inhaled Oxygen Concentration - - Weight 86.2 kg (190 lb) 08/03/2024 10:58 AM CDT Height 157.5 cm (5' 2) 08/03/2024 10:58 AM CDT Body Mass Index 34.75 08/03/2024 10:58 AM CDT Plan of Treatment Health Maintenance Due Date Last Done Comments Fall Risk Assessment 1935 Osteoporosis Screening-Bone Density Scan 1935 Hepatitis B Screening 07/04/1953 Zoster Vaccine (1 of 2) 07/04/1985 Well Visit 65+ 07/04/2000 Depression Screening 02/17/2020 02/16/2019 Covid-19 Vaccine (3 - 2023-2 5 season) 2023 05/03/2020, 04/05/2020 Influenza Vaccine (#1) 2024 , 11/25/2019, 11/29/2018, Additional history exists DTaP/Tdap/Td Vaccine (2 - Td or Tdap) 10/25/2031 10/24/2021 Pneumococcal vaccine 65+ Completed 11/02/2014, 11/30 Medical Devices Implanted Type Area Research Laboratory Manager Device Identifier Shelf Expiration Date Model / Serial / Lot [employer] [id number] Smartset High Viscosity Cement 40gm Bone Gentamicin - [id number] Implanted:Qty: 1 on 10/18/2017 by Les Crooks MD at [facility] Bone Cement Right: Patella [employer] 11/28/2018 [id number] / / [id number] [employer] [id number] Attune Cemented Posterior Stabilize Knee Right 5 Component - [id number] Implanted:Qty: 1 on 10/18/2017 by Les Crooks MD at [facility] Right: Knee [employer] 04/29/2027 [id number] / / [id number] [employer] [id number] Attune S+ Cement Fix Bearing Knee 5 Baseplate Tibial - [id number] Implanted:Qty: 1 on 10/18/2017 by Les Crooks MD at [facility] Right: Knee [employer] 05/30/2027 [id number] / / [id number] [employer] [id number] Attune 35mm Cemented Medialize Knee Dome Patellar Aox Sterile - [id number] Implanted:Qty: 1 on 10/18/2017 by Les Crooks MD at [facility] Right: Knee [employer] 07/29/2022 [id number] / / [id number] [employer] [id number] Attune 5mm Posterior Stabilize Fix Bearing Knee 5 Insert Tibial - [id number] Implanted:Qty: 1 on 10/18/2017 by Les Crooks MD at [facility] Right: Knee [employer] 02/28/2022 [id number] / / [id number] [employer] [id number] [place] 52mm 36mm Hip Neutral Liner Acetabular Altrx Sterile Latex Free - [id number] Implanted:Qty: 1 on 03/08/2019 by Les Crooks MD at [facility] Left: Hip [employer] 01/29/2024 [id number] / / [id number] [employer] [id number] [place] 52mm Sector Hip Shell Acetabular Gription Sterile Latex Free - [id number] Implanted:Qty: 1 on 03/08/2019 by Les Crooks MD at [facility] Left: Hip [employer] 11/28/2028 [id number] / / [id number] [employer] [id number] Actis Collar Hip 4 High Offset Stem Femoral - [id number] Implanted:Qty: 1 on 03/08/2019 by Les Crooks MD at [facility] Left: Hip [employer] 01/28/2029 [id number] / / [id number] [employer] [id number] Articul/Dequan 36mm Cementless Hip +1.5mm 12/14 Taper Head Femoral Latex Free - [id number] Implanted:Qty: 1 on 03/08/2019 by Les Crooks MD at [facility] Left: Hip [employer] 12/30/2023 [id number] / / [id number] Procedures Procedure Name Priority Date/Time Associated Diagnosis Comments XR KNEE RIGHT 3 VIEWS Schedule Routine, Read Routine (OP Routine) 08/03/2024 11:22 AM CDT Right knee pain, unspecified chronicity [place] ARTHROCENTESIS ASPIR&/INJ MAJOR JT/BURSA W/O US Routine 08/03/2024 11:15 AM CDT Primary osteoarthritis of left knee [place] ARTHROCENTESIS ASPIR&/INJ MAJOR JT/BURSA W/O US Routine 08/03/2024 11:15 AM CDT Trochanteric bursitis, left hip from Last 3 Months Results * XR Knee Right 3 View (08/03/2024 11:22 AM CDT) Anatomical Region Laterality Modality Lower Extremities, Knee Right Digital Radiography Narrative 08/03/2024 1:21 PM CDT Right total knee arthroplasty in appropriate position with no interval change. Result [facility] Les Crooks MD IMG XR PROCEDURES Final Result * [place] ARTHROCENTESIS ASPIR&/INJ MAJOR JT/BURSA W/O US (08/03/2024 11:15 AM CDT) Narrative Les Crooks MD - 08/03/2024 11:15 AM CDT Les Crooks MD 08/03/2024 1:21 PM Large Joint (Hip, Knee, Shoulder) Injection: [...] the procedure well with no immediate complications Result [facility] Les Crooks MD IN CLINIC/BEDSIDE ORDERA BLES Final Result * [place] ARTHROCENTESIS ASPIR&/INJ MAJOR JT/BURSA W/O US (08/03/2024 11:15 AM CDT) Narrative Les Crooks MD - 08/03/2024 11:15 AM CDT Les Crooks MD 08/03/2024 1:21 PM Greater trochanteric bursa injection Performed by: [...] MD IN CLINIC/BEDSIDE ORDERA BLES Final Result from Last 3 Months Insurance MEDICARE MEDICARE COMMERCIAL GENERIC Advance Directives For more information, please contact: [phone] * Full Code (Latest Code Status on File) Date Activated Date Inactivated Comments 03/08/2019 12:49 PM 03/09/2019 7:22 PM * Full Code Date Activated Date Inactivated Comments 10/18/2017 3:37 PM 10/19/2017 5:31 PM Care Teams Pump Erector Helper Relationship Specialty Start Date End Date Eliu Vicente MD [address] [place] [address] PCP - General 12/15/13 Eleanor Cruz PTA [facility] 10/11/17 Melva Knight, PA Orthopedic Surgery 03/09/19
--- OUTSIDE RECORDS SUMMARY | 2024-08-31 15:10 | XMS_ITS | Encounter Summary ---
Author Organization [facility] Address [facility] [place] [address] Care Team Providers Care Collar Fuser Name Role Phone Eliu Vicente MD Primary Care Provider Encounter Details Date Type Department Care Team (Late st Contact Info) Description 08/30/2024 2:56 PM CDT Hospital Encounter [facility] [address] [place], [place] [id number] Eliu Vicente MD [address] [place] [address] Social History Tobacco Use Types Packs/Day Years Used Date Smoking Tobacco: Never Smokeless Tobacco: Never Alcohol Use Standard Drinks/Week Comments Not Currently 0 (1 standard drink = 0.6 oz pure alcohol) Glass of wine every few months OASIS D0700: Social Isolation Answer Da te Recorded Frequency of experiencing loneliness or isolatio n Rarely 08/15/2024 OASIS A1250: Transportation Answer Date Recorded Lack of Transportation (Medical) No 08/15/2024 Lack of Transportation (Non-Medical) No 08/15/2024 Patient Unable or Declines to Respond No 08/15/2024 OASIS B1300: Health Literacy Answer Papo e Recorded Frequency of needing help to read materials from doctor or pharmacy Never 08/15/2024 [facility] Utilities Answer Date Recorded In the past 12 months has th e electric, gas, oil, or water company threatened to shut off services in your home? No 08/08/2024 Humiliation, Afraid, Rape, and Kick questionnair e Answer Date Recorded Within the last year, have y ou been afraid of your partner or ex-partner? No 08/08/2024 Within the last year, have y ou been humiliated or emotionally abused in other ways by your partner or ex-partner? No Within the last year, have y ou been kicked, hit, slapped, or otherwise physically hurt by your partner or ex-partner? No 08/08/2024 Within the last year, have y ou been raped or forced to have any kind of sexual activity by your partner or ex-partner? No 08/08/2024 Social Connection and Isolat ion Panel [NHANES] Answer Date Recorded In a typical week, how many times do you talk on the phone with family, friends, or neighbors? More than three times a week 08/26/2022 How often do you get togethe r with friends or relatives? Three times a week 08/26/2022 How often do you attend [facility] or church services? More than 4 times per year 08/26/2022 Do you belong to any clubs o r organizations such as anabaptism groups, unions, fraternal or athletic groups, or [...] care, and heating? Not hard at all 08/08/2024 PHQ-2 Answer Date Recorded Patient Health Questionnaire-2 Score 0 08/26/2022 [facility] [place] [facility] Occupat [facility] - Occupational Stress [...] the money to buy more. Never true 08/09/19 25 Within the past 12 months, t he food you bought just didn't last and you didn't have money to get more. Never true 08/08/2024 PRAPARE - Transportation Answer Date Re corded In the past 12 months, has l ack of transportation kept you from medical appointments or from getting medications? No 07/30 In the past 12 months, has l ack of transportation kept you from meetings, work, or from getting things needed for daily living? No 08/08/2024 Housing Stability Vital Sign Answer Papo e [...] place to sleep or slept in a skilled nursing (including now)? No 02/04/2023 Housing Stability Vital Sign Answer Papo e Recorded In the last 12 months, was t here a time when you were not able to pay the mortgage or rent on time? No 08/08/2024 In the past 12 months, how m any times have you moved where you were living? 0 08/08/2024 At any time in the past 12 m [facility], were you homeless or living in a skilled nursing (including now)? No 08/08/2024 Comments No Sex and Gender Information Value Date Recorded Sex Assigned at Female 03/16/2024 12:42 PM CLUSTER BORE OPERATOR Legal Sex Female 11:51 PM CDT Gender Identity Female 08/06/2024 7:26 PM CDT Sexual Orientation Straight 08/06/2024 7: 26 PM CDT documented as of this encounter Functional Status * Are you deaf or do you have serious difficulty hearing Answer Date of Assessment Author Status No 08/08/2024 5:00 PM CDT Viki Cherry RN Active * Are you blind or do you have serious difficulty seeing, even when wearing glasses? Answer Date of Assessment Author Status No 08/08/2024 5:00 PM CDT Viki Cherry RN Active * Do you have serious difficulty walking or climbing stairs? Answer Date of Assessment Author Status No 08/08/2024 5:00 PM CDT Viki Cherry RN Active * Do you have difficulty dressing or bathing? Answer Date of Assessment Author Status Yes 08/08/2024 5:00 PM CDT Viki Cherry RN Active * Because of a physical, mental, or emotional condition, do you have difficulty doing errands alone such as visiting a doctor's office or shopping? Answer Date of Assessment Author Status No 08/08/2024 5:00 PM CDT Viki Cherry RN Active documented as of this encounter Mental Status * Because of a physical, mental, or emotional condition, do you have serious difficulty concentrating, remembering, or making decisions? Answer Entry Date Author Status No 08/08/2024 5:00 PM CDT Viki Cherry RN Active documented in this encounter Plan of Treatment Upcoming Encounters Date Type Department Care Team (Late st Contact Info) Description 09/04/2024 10:00 AM CDT Home Care Visit [address] [address] Juan Vora PTA 09/05/2024 9:00 AM CDT Home Care Visit [address] [address] Augustina Maurice, RN [phone] (Work) 09/06/2024 9:00 AM CDT Appointment [address] [place] [address] Laura Black, PT [address] [place] [address] 09/18/2024 9:30 AM CDT Office Visit [facility] [address] [place] [phone] Jhonny Reese MD [address] [facility] [address] [address] [place] [address] documented as of this encounter Goals Goal Patient Goal Type Associated Problems Recent Progress Patient-Stated? Author Family - family caregiver with be involved in care transitions and discharge planning Lifestyle Apryl Hancock RN documented as of this encounter Procedures Procedure Name Priority Date/Time Associated Diagnosis Comments HC URINALYSIS AUTO W/O MICRO Routine 08/30/2024 11:30 AM CDT UTI (urinary tract infection) URINE BACTERIA CULTURE Routine 08/30/2024 11:30 AM CDT UTI (urinary tract infection) documented in this encounter Results * (ABNORMAL) URINALYSIS (08/30/2024 11:30 AM CDT) COLOR (U) YELLOW 08/30/2024 4:14 PM CDT [facility] () [facility] TRANSPARENCY CLEAR 08/30/2024 4:14 PM CDT [facility] () [facility] SPECIFIC GRAVITY (U) 1.010 1.002 - 1.030 08/30/2024 4:14 PM CDT [facility] () [facility] U PH 6.5 4.5 - 8.0 08/30/2024 4:14 PM CDT [facility] ([facility] LEUKOCYTES (U) 3+(A) NEGATIVE 08/30/2024 4:14 PM CDT [facility] () [facility] NITRITES NEGATIVE NEGATIVE 08/30/2024 4:14 PM CDT [facility] PROTEIN RANDOM (U) 1+(A) NEGATIVE 08/30/2024 4:14 PM CDT [facility] GLUCOSE (U) NEGATIVE NEGATIVE 08/30/2024 4:14 PM CDT [facility] KETONES MG/DL (U) NEGATIVE NEGATIVE 08/30/2024 4:14 PM CDT [facility] UROBILINOGEN NORMAL NORMAL EU/DL 08/30/2024 4:14 PM CDT [facility] BILIRUBIN (U) NEGATIVE NEGATIVE 08/30/2024 4:14 PM CDT [facility] BLOOD (U) 1+(A) NEGATIVE 08/30/2024 4:14 PM CDT [facility] WBC/HPF 5-10 /HPF 08/30/2024 4:14 PM CDT [facility] RBC/HPF 0-2 /HPF 08/30/2024 4:14 PM CDT [facility] EPI/HPF 0-5 /HPF 08/30/2024 4:14 PM CDT [facility] BACTERIA (U) 3+ /HPF 08/30/2024 4:14 PM T [facility] URINE SPECIMEN / Unknown 08/30/2024 11:30 AM CDT us Eliu Vicente MD URINE ORDERABLES Final Result [facility] [address] [place] [address], * URINE BACTERIA CULTURE (08/30/2024 11:30 AM CDT) SPEC DESCRIPTION URINE, UNSPECIFIED 08/30/2024 2:58 PM CDT [facility] SPECIAL REQUESTS NO SPECIAL REQUEST 08/30/2024 2:58 PM CDT [facility] CULTURE RESULT MULTIPLE ORGANISMS PRESENT, PROBABLE CONTAMINATION. SUGGEST REPEAT CULTURE. 08/31/2024 11:49 AM CDT [facility] URINE SPECIMEN / Unknown 08/30/2024 11:30 AM CDT 08/30/2024 2:59 PM CDT us Eliu Vicente MD MICROBIOLOGY - GENERAL ORDERA BLES Final Result [facility] [address] [place] [address], [place] [phone] [facility] [address] [place] [address], [place] [phone] documented in this encounter Visit Diagnoses Diagnosis UTI (urinary tract infection) Urinary tract infection, site not specified documented in this encounter Care Teams Collar Fuser Relationship Specialty Start Date End Date Eliu Vicente MD [address] [place], [place] [id number] PCP - General FAMILY PRACTICE 09/17/21 documented as of this encounter
--- OUTSIDE RECORDS SUMMARY | 2024-08-31 15:10 | XMS_ITS | Referral Summary ---
Author Organization [facility] Building [address] Address [address] [place] [address] Care Team Providers Care Dog Groomer Name Role Phone Eliu Vicente MD Primary Care Provide r Eleanor Cruz PTA Unavailable Unavailable Melva Knight Unavailable [phone] Encounters Date Type Department Care Team Description 08/03/2024 11:20 AM CDT - 08/03/2024 11:59 PM CDT Hospital Encounter [facility] [address] [place] [address] [place] [phone] Discharge Disposition: Discharge to home or self care 08/03/2024 11:15 AM CDT Office Visit [facility] [address] [place] [phone] Les Crooks MD Trochanteric bursitis, left hip (Primary Dx); Right knee pain, unspecified chronicity; Primary osteoarthritis of left knee from Last 3 Months Allergies Active Allergy [...] 01/07/2023 Assessment & Plan (02/03/2023 4:05 PM FORENSIC ANTHROPOLOGIST): Impression: Patient complains of weakness to bilateral [...] with repeat lower extremity arterial Doppler in [place]. Assessment & Plan (01/07/2023 10:16 AM FORENSIC ANTHROPOLOGIST): Impression: Patient complains of symptoms of claudication [...] 01/07/2023 Assessment & Plan (02/03/2023 4:02 PM FORENSIC ANTHROPOLOGIST): Impression: Patient continues to have bilateral lower [...] pumps. Assessment & Plan (01/07/2023 10:18 AM FORENSIC ANTHROPOLOGIST): Impression: Patient has 2+ pitting edema to bilateral lower extremities. No open ulcerations are noted. Serous drainage is noted to left lower extremity. Plan: Recommend compression therapy and leg elevation for edema control. -educated patient and her family on using compression wraps with Willie bandages to both legs. Essential hypertension 01/07/2023 Assessment & Plan (01/07/2023 10:19 AM FORENSIC ANTHROPOLOGIST): Impression: Chronic and stable. Plan: Continue Zestoretic, metoprolol Mixed hyperlipidemia 01/07/2023 Assessment & Plan (02/03/2023 4:02 PM FORENSIC ANTHROPOLOGIST): Impression: Chronic stable. Plan: Continue pravastatin Assessment & Plan (01/07/2023 10:19 AM FORENSIC ANTHROPOLOGIST): Impression: Chronic and stable. Plan: Continue pravastatin. Primary osteoarthritis of left hip 02/16/2019 Overview (02/16/2019): Added automatically from request for surgery [id number] Aftercare following right knee joint replacement surgery [...] on file Legal Sex Female 8:56 PM FORENSIC ANTHROPOLOGIST Gender Identity Not on file Sexual Orientation Not on file Last Filed Vital Signs Vital Sign Reading Time Taken Comments Blood Pressure 161/62 05/02/2024 8:57 AM FORENSIC ANTHROPOLOGIST Pulse 84 05/02/2024 8:57 AM FORENSIC ANTHROPOLOGIST Temperature 37.1 C (98.8 F) 04/16/2024 5:28 PM FORENSIC ANTHROPOLOGIST Respiratory Rate 20 04/16/2024 5:28 PM FORENSIC ANTHROPOLOGIST Oxygen Saturation 98% 04/16/2024 5:28 PM FORENSIC ANTHROPOLOGIST Inhaled Oxygen Concentration - - Weight 86.2 kg (190 lb) 08/03/2024 10:58 AM CDT Height 157.5 cm (5' 2) 08/03/2024 10:58 AM CDT Body Mass Index 34.75 08/03/2024 10:58 AM CDT Plan of Treatment Not on file Medical Devices Implanted Type Area Industrial Automation Engineer Device Identifier Shelf Expiration Date Model / Serial / Lot [employer] [id number] Smartset High Viscosity Cement 40gm Bone Gentamicin - [id number] Implanted:Qty: 1 on 10/18/2017 by Les Crooks MD at [facility] Bone Cement Right: Patella [employer] 11/28/2018 [id number] / / [id number] [employer] [id number] Attune Cemented Posterior Stabilize Knee Right 5 Component - [id number] Implanted:Qty: 1 on 10/18/2017 by Les Crooks MD at [facility] Right: Knee [employer] 04/29/2027 [id number] / / [id number] [employer] [id number] Attune S+ Cement Fix Bearing Knee 5 Baseplate Tibial - [id number] Implanted:Qty: 1 on 10/18/2017 by Les Crooks MD at [facility] Right: Knee [employer] 05/30/2027 [id number] / / [id number] [employer] [id number] Attune 35mm Cemented Medialize Knee Dome Patellar Aox Sterile - [id number] Implanted:Qty: 1 on 10/18/2017 by Les Crooks MD at [facility] Right: Knee [employer] 07/29/2022 [id number] / / [id number] [employer] [id number] Attune 5mm Posterior Stabilize Fix Bearing Knee 5 Insert Tibial - [id number] Implanted:Qty: 1 on 10/18/2017 by Les Crooks MD at [facility] Right: Knee [employer] 02/28/2022 [id number] / / [id number] [employer] [id number] Meridian 52mm 36mm Hip Neutral Liner Acetabular Altrx Sterile Latex Free - [id number] Implanted:Qty: 1 on 03/08/2019 by Les Crooks MD at [facility] Left: Hip [employer] 01/29/2024 [id number] / / [id number] [employer] [id number] Meridian 52mm Sector Hip Shell Acetabular Gription Sterile Latex Free - [id number] Implanted:Qty: 1 on 03/08/2019 by Les Crooks MD at [facility] Left: Hip [employer] 11/28/2028 [id number] / / [id number] [employer] [id number] Actis Collar Hip 4 High Offset Stem Femoral - [id number] Implanted:Qty: 1 on 03/08/2019 by Les Crooks MD at [facility] Left: Hip [employer] 01/28/2029 [id number] / / [id number] [employer] [id number] Articul/Dequan 36mm Cementless Hip +1.5mm 12/14 Taper Head Femoral Latex Free - [id number] Implanted:Qty: 1 on 03/08/2019 by Les Crooks MD at [facility] Left: Hip [employer] 12/30/2023 [id number] / / [id number] Procedures Procedure Name Priority Date/Time Associated Diagnosis Comments XR KNEE RIGHT 3 VIEWS Schedule Routine, Read Routine (OP Routine) 08/03/2024 11:22 AM CDT Right knee pain, unspecified chronicity RI ARTHROCENTESIS ASPIR&/INJ MAJOR JT/BURSA W/O US Routine 08/03/2024 11:15 AM CDT Primary osteoarthritis of left knee RI ARTHROCENTESIS ASPIR&/INJ MAJOR JT/BURSA W/O US Routine 08/03/2024 11:15 AM CDT Trochanteric bursitis, left hip from Last 3 Months Results * XR Knee Right 3 View (08/03/2024 11:22 AM CDT) Anatomical Region Laterality Modality Lower Extremities, Knee Right Digital Radiography Narrative 08/03/2024 1:21 PM CDT Right total knee arthroplasty in appropriate position with no interval change. Les Crooks MD IMG XR PROCEDURES Final Result * RI ARTHROCENTESIS ASPIR&/INJ MAJOR JT/BURSA W/O US (08/03/2024 [...] IN CLINIC/BEDSIDE ORDERA BLES Final Result * RI ARTHROCENTESIS ASPIR&/INJ MAJOR JT/BURSA W/O US (08/03/2024 [...] Advance Directives For more information, please contact: [phone] * Full Code (Latest Code Status on File) Date Activated Date Inactivated Comments 03/08/2019 12:49 PM 03/09/2019 7:22 PM * Full Code Date Activated Date Inactivated Comments 10/18/2017 3:37 PM 10/19/2017 5:31 PM Care Teams Dog Groomer Relationship Specialty Start Date End Date Eliu Vicente MD [address] [place] [address] PCP - General 12/15/13 Eleanor Cruz FOUR SLIDE MACHINE OPERATOR Fruit Peeler Physical Therapy 10/11/17 Melva Knight PA Orthopedic Surgery 03/09/19
--- OUTSIDE RECORDS SUMMARY | 2024-08-31 15:10 | XMS_ITS | Encounter Summary ---
Author Organization [facility] Address [facility] [place] [address] Care Team Providers Care Magnetic Locater Name Role Phone Eliu Vicente MD Primary Care Provider [phone] Encounter Details Date Type Department Care Team (Late st Contact Info) Description 08/30/2024 10:00 AM CDT Home Care Visit [address] [place] [address] María Adler LPN SN HOME VISIT Social History Tobacco Use Types Packs/Day Years [...] materials from doctor or pharmacy Never 08/15/2024 [facility] Utilities Answer Date Recorded In the past 12 months has e [employer], gas, oil, or water [employer] threatened to shut off services in your [...] often do you attend chur ch or yarsanism services? More than 4 times per year 08/26/2022 Do you belong to any clubs o r organizations such as scientologist groups, unions, fraternal or athletic groups, or [...] Recorded Patient Health Questionnaire-2 Score 0 08/26/2022 [facility] [place] of Occupat ional Health - Occupational Stress [...] place to sleep or slept in a penitentiary (including now)? No 02/04/2023 Housing Stability Vital Sign Answer Papo e Recorded In the last 12 months, was t here a time when you were not able to pay the mortgage or rent on time? No 08/08/2024 In the past 12 months, how m any times have you moved where you were living? 0 08/08/2024 At any time in the past 12 m [facility], were you homeless or living in a penitentiary (including now)? 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 Legal Sex Female 11:51 PM CDT Gender Identity Female 08/06/2024 7:26 PM CDT Sexual Orientation Straight 08/06/2024 7: 26 PM CDT documented as of this encounter Last Filed Vital Signs Vital Sign Reading Time Taken Comments Blood Pressure 132/62 08/30/2024 10:29 AM CDT Pulse 62 08/30/2024 10:29 AM CDT Temperature 36.6 C (97.8 F) 08/30/2024 10:29 AM CDT Respiratory Rate 16 08/30/2024 10:29 AM CDT Oxygen Saturation 96% 08/30/2024 10:29 AM CDT Inhaled Oxygen Concentration - - Weight 78.5 kg (173 lb) 08/30/2024 10:29 AM CDT Height - - Body Mass Index 30.65 08/08/2024 6:44 PM CDT documented in this encounter Functional Status * Are you [...] Assessment Author Status Yes 08/08/2024 5:00 PM MAHESHT Viki Cherry RN Active * Because of [...] Date Author Status No 08/08/2024 5:00 PM MAHESHT Viki Cherry RN Active documented in this encounter Plan of Treatment Upcoming Encounters Date Type Department Care Team (Late st Contact Info) Description 09/04/2024 10:00 AM CD[place] [address] Juan Vora, DIRECTOR OPERATING ROOM 09/05/2024 9:00 AM CDT Home Care Visit [facility] [address] [place] [address] [place] [address] Augustina Maurice, RN [phone] (Work) 09/06/2024 9:00 AM CDT Appointment [facility] [address] [place] [address] [place] [address] Laura Black, PT [address] [place], [place] [id number] 09/18/2024 9:30 AM CDT Office Visit [facility] [address] [place] [phone] Jhonny Reese MD [address] [address] documented as of this encounter Goals Goal Patient Goal Type Associated Problems Recent Progress Patient-Stated? Author Family - family caregiver with be involved in care transitions and discharge planning Lifestyle No Apryl Adams, RN documented as of this encounter Visit Diagnoses Not on filedocumented in this encounter Home Health Visit - Care Plan Visit Details Visit Type -SN - Home Visit Discipline -Chcf Problems Problem Description Start Date Status Goals Interve ntions Pain/Physical Discomfort Disciplines: SN Patient is experiencing pain/physical discomfort. 08/15/2024 Active 1 goal linked to scheduled/document ed intervention 2 goal interventions scheduled/document ed in this visit Collaboration of Care Disciplines: SN Collaboration for safe care. 08/15/2024 Active 5 goals linked to scheduled/document ed interventions 4 goal interventions scheduled/document ed in this visit Fall Precautions Disciplines: SN Patient at risk for falls or has had recent fall occurrence(s). 08/15/2024 Active 1 goal linked to scheduled/document ed intervention Congestive Heart Failure Disciplines: SN Care related to congestive heart failure. 08/15/2024 Active 2 goals linked to scheduled/document ed interventions 1 goal intervention scheduled/document ed in this visit Specimen Collection Disciplines: SN Management of specimen samples, including lab draws, stool, urine, & tissue. 08/15/2024 Active 1 goal linked to scheduled/document ed intervention Goals Goal Associated Problem Outcome Goal Met? Visit Notes Patient's pain/physical discomfort will be reduced to the level of patient's stated goal. Description: - Patient's pain/physical discomfort will be reduced to the level of patient's stated goal by 09/09/24. - Patient's desired pain goal is 0. - Patient will verbalize understanding of the pain management plan by 08/15/24. goal met 08/15/24-SKRN Pain/Physical Discomfort Progressing No Hosptial Readmission Reduction Description: Hospital Readmission Reduction - Hospital Readmission Reduction - High Risk (7 and greater risk factors). Patient's risk number is 8. Hospital Readmission will be avoided during the first 60-day episode of Homecare through frequency of assessment visits. Collaboration of Care Progressing No Patient safety met through collaboration for safe care. Description: Clinicians will communicate patient care and safety needs during episode of care through 09/09/24. Collaboration of Care Progressing No Nutritional Status for Optimal Health Description: Patient will demonstrate adequate nutritional status as evidenced by stabilization of weight and intake of required nutrients for optimal health and functioning by 09/09/24. patient will verbalize importance of adequate nutrition and fluid intake by 08/15. goal met 08/15/24-SKRN Collaboration of Care Progressing No Patient verbalizes understanding of medication regimen Description: Patient and Caregiver will verbalize understanding of medication regimen by 08/15/24. goal met 08/15/24-SKRN patient will continue to be compliant with medication regimen and understand medication frequency, dosage and administration through 09/09/24. Collaboration of Care Progressing No Patient meets homebound requirements. Description: Patient meets requirements of homebound status as evidenced by needs assistance to leave home safely, fall risk, impaired driving ability, weakness and fatigue, cardiac condition, dyspnea, dependent for ADLs, impaired gait/balance. Collaboration of Care Progressing No Patient/caregiver maintains a safe environment. Description: Patient/caregiver will demonstrate ability to maintain a safe environment without injuries/falls by 09/09/24. patient will voice understanding of home safety and fall prevention measures and decrease fall risk by 08/15/24. goal met 08/15/24-SKRN Fall Precautions Progressing No Patient will have decreased lower extremity edema Description: - Patient will have decreased lower extremity edema by 08/28/24. - Patient will have decrease or stablization in the amount of edema through 09/09/24. Congestive Heart Failure Progressing No Patient/Caregiver will verbalize understanding of daily interventions to reduce exacerbations and manage chronic disease Description: - Patient will verbalize understanding of daily interventions to reduce exacerbations and manage chronic disease by 08/15/24. goal met 08/15/24 SKRN - Patient will remain without exacerbation through 09/09/24. Congestive Heart Failure Progressing No Perform Lab/Specimen Collection Description: Skilled nurse to perform lab draw or specimen collection as ordered. Specimen Collection Progressing No Interventions Intervention Associated Problem/Goal Status Variance Visit Notes Instruct on Management of Pain Description: - Teach principles of pain management and involve Patient and Caregiver in developing pain control regimen. - Instructed on non-pharmacological pain reduction techniques. - Instruct Patient and Caregiver on the cause(s) of pain. - Instruct Patient and Caregiver to call Home Health for unsatisfactory pain relief. - Offer written material related to pain medication to Patient and Caregiver. - Instruct Patient and Caregiver on administration and safe keeping of pain medications and the need to keep ac curate records of dosages and times. - Provide Patient and Caregiver with a recording tool to enter pain level, situation, medication dosage, and effect of administered medications. Problem:Pain/Physical Discomfort Goal:Patient's pain/physical discomfort will be reduced to the level of patient's stated goal. Completed Teach principles of pain management and involve patient in developing pain control regimen. Instruct patient on the cause(s) of pain. Instruct patient to call agency for unsatisfactory pain relief. Offer written material related to pain medication to pat ient. Instruct patient on administration and safe keeping of pain medications and the need to keep accurate records of dosages and times. Provide patient with a recording tool to enter pain level, situation, medication dosage, and effect of administered medications. Assess Pain Description: -Perform comprehensive pain assessment of patient's level of pain using Numeric pain scale and assess effectiveness of current pain regimen. -Current medical management for pain is tylenol. If no changes or concerns check complete (see Pain Assessment) . Problem:Pain/Physical Discomfort Goal:Patient's pain/physical discomfort will be reduced to the level of patient's stated goal. Completed Assess Vital Signs Description: Obtain and record vital signs. Report to MD. BP: systolic blood pressure <90 or >160; diastolic blood pressure <60 or >90. Temperature: >100.5 F. Pulse: <60 or >100 bpm. Respiratory Rate: <12 or >28 /min. SPO2: <90%. May check SPO2 as needed for ini tial assessment or dyspnea. Problem:Collaboration of Care Goal:Patient safety met through collaboration for safe care. Completed Insurance Verification Description: Verify with patient/caregiver current insurance coverage. Problem:Collaboration of Care Goal:Patient safety met through collaboration for safe care. Completed Patient's coverage status: No change in coverage Care Coordination Description: Clinician to review plan of care with patient/caregivers(s). Patient/Caregiver(s) agree(s) to plan of care and agrees to participate in care. Disciplines RN, PT and OT Problem:Collaboration of Care Goal:Patient safety met through collaboration for safe care. Completed Plan for Next Visit Description: Next visit plan summation Problem:Collaboration of Care Goal:Patient safety met through collaboration for safe care. Completed Next visit scheduled 09/05/24 for SN Visit; Patient aware of and agreeable to plan. Advised to call Agency for non-emergent questions/concerns. Assess Signs and Symptoms Description: Assess apical pulse, radial pulse, heart rate, subjective reports of dizziness, diaphoresis, nausea, episodes of syncope or near-syncope, and cognitive changes. Problem:Congestive Heart Failure Goal:Patient/Caregive r will verbalize understanding of daily interventions to reduce exacerbations and manage chronic disease Completed documented in this encounter Care Teams Magnetic Locater Relationship Specialty Start Date End Date Eliu Vicente MD [address] [place] [address] PCP - General FAMILY PRACTICE 09/17/21 documented as of this encounter
--- OUTSIDE RECORDS SUMMARY | 2024-08-31 15:10 | XMS_ITS | Encounter Summary ---
Author Organization [facility] Address [facility] [place] [address] Care Team Providers Care Breakfast Supervisor Name Role Phone Eliu Vicente MD Primary Care Provider [phone] Encounter Details Date Type Department Care Team (Late st Contact Info) Description 08/31/2024 10:15 AM CDT Home Care Visit [address] [place] [address] Juan Vora, DIDI WAREHOUSE INCENTIVE SELECTOR HOME VISIT Social History Tobacco Use Types [...] materials from doctor or pharmacy Never 08/15/2024 [facility] Utilities Answer Date Recorded In the past 12 months has [facility] [employer] gas, oil, or water [employer] threatened to shut off services in your [...] often do you attend chur ch or orthodoxy services? More than 4 times per year 08/26/2022 Do you belong to any clubs o r organizations such as sabianism groups, unions, fraternal or athletic groups, or [...] Recorded Patient Health Questionnaire-2 Score 0 08/26/2022 [facility] - Occupational Stress [...] place to sleep or slept in a snf (including now)? No 02/04/2023 Housing Stability Vital Sign Answer Papo e Recorded In the last 12 months, was t here a time when you were not able to pay the mortgage or rent on time? No 08/08/2024 In the past 12 months, how m any times have you moved where you were living? 0 08/08/2024 At any time in the past 12 m [facility], were you homeless or living in a snf (including now)? 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 Answer Date of Assessment Author Status No 08/08/2024 5:00 PM MAHESHT Viki Cherry RN Active * Do you have serious difficulty walking or climbing stairs? Answer Date of Assessment Author Status No 08/08/2024 5:00 PM MAHESHT Viki Cherry RN Active * Do you have difficulty dressing or bathing? Answer Date of Assessment Author Status Yes 08/08/2024 5:00 PM MAHESHT Viki Cherry RN Active * Because of a physical, mental, or emotional condition, do you have difficulty doing errands alone such as visiting a doctor's office or shopping? Answer Date of Assessment Author Status No 08/08/2024 5:00 PM Viki Villagomez RN Active documented as of this encounter [...] 09/04/2024 10:00 AM CDT Home Care Visit [facility] Care [address] [place] [address] Juan Vora PTA 09/05/2024 9:00 AM CDT Home Care Visit [facility] Home Care [address] [place] [address] Augustina Maurice, RN [phone] (Work) 09/06/2024 9:00 AM CDT Appointment [facility] Home Care [address] [place] [address] Laura Black, PT [address] [place] [address] 09/18/2024 9:30 AM CDT [facility] [address] [place] [address] Jhonny Reese MD Three [facility]. [place] [address] [place] [address] documented as of this encounter Goals Goal Patient Goal Type Associated Problems Recent Progress Patient-Stated? Author Family - family caregiver with be involved in care transitions and discharge planning Lifestyle Apryl Hancock RN documented as of this encounter Visit Diagnoses Not on filedocumented in this encounter Home Health Visit - Care Plan Visit Details Visit Type -WAREHOUSE INCENTIVE SELECTOR - Home Visit Discipline -Physical Therapy Problems Problem Description Start Date Status Goals Interventions Pain/Physical Discomfort Disciplines: PT Patient is experiencing pain/physical discomfort. 08/21/2024 Active 1 goal linked to scheduled/documen junie intervention 2 goal interventions scheduled/documen junie in this visit Decreased Functional Mobility Disciplines: PT 08/21/2024 Active 1 goal linked to scheduled/documen junie intervention 1 problem intervention scheduled/documen junie in this visit 2 goal interventions scheduled/documen junie in this visit Collaboration of Care Disciplines: PT Collaboration for safe care. 08/21/2024 Active 2 goals linked to scheduled/documen junie interventions 4 goal interventions scheduled/documen junie in this visit Decreased Strength Disciplines: PT Decreased strength in lower extremities related to functional decline related to recent hospitalization for fall, CINDY, Hyperkalemia, UTI. 08/21/2024 Active 1 goal linked to scheduled/documen junie intervention 1 goal intervention scheduled/documen junie in this visit Balance Deficit Disciplines: PT Impaired standing and dynamic balance with potential safety problems related to functional decline related to recent hospitalization for fall, CINDY, Hyperkalemia, UTI. 08/21/2024 Active 1 goal linked to scheduled/documen junie intervention 1 goal intervention scheduled/documen junie in this visit Goals Goal Associated Problem Outcome Goal Met? Visit Notes Patient's pain/physical discomfort will be reduced to the level of patient's stated goal. Description: - Patient Nakita will verbalize understanding of the pain management plan by 09/08/24. Pain/Physical Discomfort No Patient improves functional mobility Description: Patient to perform bed/furniture transfers independently and safely with 30 sec chair stand test completed 7x by 09/01/24. Patient to ambulate independently indoors/level surfaces with wwalker when indoors, cane when outdoorsfor 200-250 ft to assist with medical appointments with improved upright posture, increased step length and height bilat to assist with gait safety by 09/08/24. Patient to ascend/descend 5 steps with sba to enter/exit the home for medical appointments by 09/08/24 Decreased Functional Mobility No Patient verbalizes understanding of medication regimen Description: Patient Nakita will verbalize understanding of medication regimen by 09/08/24. Collaboration of Care No Patient safety met through collaboration for safe care. Description: Clinicians will communicate patient care and safety needs during episode of care through 09/08/24. Patient to state 3 fall prevention/home safety techniques for a decreased risk of falling by 09/01/24 Collaboration of Care No Patient increases strength and/or functional mobility Description: Patient to report le hep compliance at least daily to bid for progressive strengthening by 09/01/24. Patient to demonstrate independence with LE HEP with increased L hip/knee MMT to 4/5-4+/5 to promote increased ambulation distances to 200-250 ft by Decreased Strength No Patient improves balance and reduces fall risk Description: Patient to perform TUG test in 26 sec or less for decreased probability of falls with improved ability to negotiate stairs with sba by 09/08/24. Balance Deficit No Interventions Intervention Associated Problem/Goal Status Variance Visit Notes Instruct on Management of Pain Description: - Teach principles of pain management and involve Patient Nakita in developing pain control regimen. - Instructed on non-pharmacological pain reduction techniques-distraction, imagery, relaxation, massage, to balance rest with activity, positioning -In structed patient on heat/ice to L hip up to 4x/day for 15-20 min prn for pain. - Instructed Patient Nakita on the cause(s) of pain. - Instructed Patient Nakita to call Home Health for unsatisfactory pain relief. Patient verbalizes understanding. Problem:Pain/Physical Discomfort Goal:Patient's pain/physical discomfort will be reduced to the level of patient's stated goal. Scheduled Assess Pain Description: -Perform comprehensive pain assessment of patient's level of pain using Numeric pain scale and assess effectiveness of current pain regimen. Problem:Pain/Physical Discomfort Goal:Patient's pain/physical discomfort will be reduced to the level of patient's stated goal. Scheduled Transfer Deficit/Training Description: - Therapeutic Exercise. - Transfer Training - Establish home exercise program. Problem:Decreased Functional Mobility Goal:Patient improves functional mobility Scheduled Gait Deficit Description: Gait training with wwalker progressing to st.cane when outdoors with spouse supervision as tolerated/appropriate. Problem:Decreased Functional Mobility Goal:Patient improves functional mobility Scheduled Instruct on stair climbing Description: Instruct in safe stair negotiation to enter/exit the home for apppointments. Problem:Decreased Functional Mobility Scheduled Medication Reconciliation Description: Clinician to review medications with patient/caregiver at each visit and report changes to case hardener and/or supervising therapist. Problem:Collaboration of Care Goal:Patient verbalizes understanding of medication regimen Scheduled Assess Vital Signs Description: Obtain and record vital signs. Report to MD if vitals are out of parameters BP: systolic blood pressure <90 or >160; diastolic blood pressure <60 or >90. Temperature: >100.5 F. Pulse: <60 or >100 bpm. Respiratory Rate: <12 or >28 /min. SPO2: <90%. May check SPO2 as needed for initial assessment or dyspnea. Problem:Collaboration of Care Goal:Patient safety met through collaboration for safe care. Scheduled Instruct Home Safety Description: Instruct patient on strategies/modifications to home environment. Patient up as tolerated with walker or lesser device when outdoors as directed-Instructed patient to change positions every 1-2 hours for skin integrity and to drink 6-8 glasses of fluids daily for adequate hydration. Instructed patient on home safety and fall prevention techniques per home safety/fall prevention handout in soc packet including 1. Keep all pathways clear. 2. Remove or tape down throw rugs. 3. Wear well fitting shoes when transferring or ambulating. 4. Use assist device when ambulating. 5. Night light at night in event of being up to toilet in night. 6. Change position slowly. 7. Stand for one or two minutes before walking. 8. All electrical cords should be along [place] an d not running across pathways. 9. Non slip mats in bathroom. 10. Keep phone close at all times. Patient verbalized good understanding of all instructions.. Problem:Collaboration of Care Goal:Patient safety met through collaboration for safe care. Scheduled Plan for Next Visit Description: Next visit plan summation Problem:Collaboration of Care Goal:Patient safety met through collaboration for safe care. Scheduled Decreased Strength Description: - Therapeutic exercise-rom, stretching, manual therapy as appropriate, strengthening L hip/knee - Establish home exercise program. Problem:Decreased Strength Goal:Patient increases strength and/or functional mobility Scheduled Balance Deficit Description: - Therapeutic exercise. - Establish or upgrade home program. - Implement balance training. Problem:Balance Deficit Goal:Patient improves balance and reduces fall risk Scheduled documented in this encounter Care Teams Breakfast Supervisor Relationship Specialty Start Date End Date Eliu Vicente MD [address] [place] [address] PCP - General FAMILY PRACTICE 09/17/21 documented as of this encounter
--- OUTSIDE RECORDS SUMMARY | 2024-08-31 15:10 | XMS_ITS | Encounter Summary ---
Author Organization [facility] Address [facility] [place] [address] Care Team Providers Care Client Care Manager Name Role Phone Eliu Vicente MD Primary Care Provider Encounter Details Date Type Department Care Team (Late st Contact Info) Description 05/20/2023 [facility] [address] Mina Koch MA Social History Tobacco Use Types Packs/Day Years Used Date Smoking Tobacco: Never Smokeless Tobacco: Never Alcohol Use Standard Drinks/Week Comments Never 0 (1 standard drink = 0.6 oz pur e alcohol) [facility] Utilities Answer Date Recorded In the past 12 months has e electric, gas, oil, or water company [...] often do you attend chur ch or adventist services? More than 4 times per year 08/26/2022 Do you belong to any clubs o r organizations such as zoroastrian groups, unions, fraternal or athletic groups, or [...] Recorded Patient Health Questionnaire-2 Score 0 08/26/2022 [facility] Stress Questionnaire Answer Date Recorded [...] place to sleep or slept in a half-way (including now)? 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 [place], [place] [address] 09/18/2024 9:30 AM CDT Office Visit [facility] [address] [phone] Jhonny Reese MD [address] [address] documented as of this encounter Procedures Procedure [...] on filedocumented in this encounter Care Teams Client Care Manager Relationship Specialty Start Date End Date Eliu Vicente MD [address] [place], [place] [id number] PCP - General FAMILY PRACTICE 09/17/21 documented as of this encounter
--- OUTSIDE RECORDS SUMMARY | 2024-08-31 15:10 | XMS_ITS | Encounter Summary ---
Author Organization [facility] Address [facility] [place] [address] Care Team Providers Care Biological Technician Name Role Phone Eliu Vicente MD Primary Care Provider [phone] Encounter Details Date Type Department Care Team (Late st Contact Info) Description 08/30/2024 Orders Only [facility] [address] [place], [place] [id number] Eliu Vicente MD [address] [place] [address] Social History Tobacco Use Types [...] from doctor or pharmacy Never 08/15/2024 [facility] Utilities Answer Date Recorded In the past 12 months has th e [employer], gas, oil, or water company threatened to [...] How often do you attend chur or congregation services? 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 [address] 09/18/2024 9:30 AM CDT Office Visit [facility] [address] [place] [address] Jhonny Reese MD Three [facility]. [address] [place] [address] documented as of this encounter Goals Goal Patient Goal Type Associated Problems Recent Progress Patient-Stated? Author Family - family caregiver with be involved in care transitions and discharge planning Lifestyle No Apryl Adams, RN documented as of this encounter Results * URINE BACTERIA CULTURE (08/30/2024 11:30 AM CDT) SPEC DESCRIPTION URINE, UNSPECIFIED 08/30/2024 2:58 PM CDT [facility] SPECIAL REQUESTS NO SPECIAL REQUEST 08/30/2024 2:58 PM CDT [facility] CULTURE RESULT MULTIPLE ORGANISMS PRESENT, PROBABLE CONTAMINATION. SUGGEST REPEAT CULTURE. 08/31/2024 11:49 AM CDT [facility] URINE SPECIMEN / Unknown 08/30/2024 11:30 AM CDT 08/30/2024 2:59 PM CDT Eliu Vicente MD MICROBIOLOGY - GENERAL ORDERA BLES Final Result [facility] [address] [place] [address], [place] [phone] [facility] [address] [place] [address], [place] [phone] * (ABNORMAL) URINALYSIS (08/30/2024 11:30 AM CDT) COLOR (U) YELLOW 08/30/2024 4:14 PM CDT [facility] (B) [facility] TRANSPARENCY CLEAR 08/30/2024 4:14 PM CDT [facility] () [facility] SPECIFIC GRAVITY (U) 1.010 1.002 - 1.030 08/30/2024 4:14 PM CDT [facility] () [facility] U PH 6.5 4.5 - 8.0 08/30/2024 4:14 PM T [facility] () [facility] LEUKOCYTES (U) 3+(A) NEGATIVE 08/30/2024 4:14 PM CDT [facility] () [facility] NITRITES NEGATIVE NEGATIVE 08/30/2024 4:14 PM CDT [facility] ([facility] PROTEIN RANDOM (U) 1+(A) NEGATIVE 08/30/2024 4:14 PM T [facility] () [facility] GLUCOSE (U) NEGATIVE NEGATIVE 08/30/2024 4:14 PM T [facility] ([facility] KETONES MG/DL (U) NEGATIVE NEGATIVE 08/30/2024 4:14 PM T [facility] () [facility] UROBILINOGEN NORMAL NORMAL EU/DL 08/30/2024 4:14 PM T [facility] () [facility] BILIRUBIN (U) NEGATIVE NEGATIVE 08/30/2024 4:14 PM T [facility] () [facility] BLOOD (U) 1+(A) NEGATIVE 08/30/2024 4:14 PM CDT [facility] WBC/HPF 5-10 /HPF 08/30/2024 4:14 PM CDT [facility] () [facility] RBC/HPF 0-2 /HPF 08/30/2024 4:14 PM CDT [facility] () [facility] EPI/HPF 0-5 /HPF 08/30/2024 4:14 PM CDT [facility] () [facility] BACTERIA (U) 3+ /HPF 08/30/2024 4:14 PM CDT [facility] URINE SPECIMEN / Unknown 08/30/2024 11:30 AM CDT Eliu Vicente MD URINE ORDERABLES Final Result Performing Organization Address City/State/[facility] Co de Phone Number [facility] [address] [place] [address], documented in this encounter Visit Diagnoses Diagnosis UTI (urinary tract infection)- Primary Urinary tract infection, site not specified documented in this encounter Care Teams Biological Technician Relationship Specialty Start Date End Date Eliu Vicente MD [address] [place] [address] PCP - General FAMILY PRACTICE 09/17/21 documented as of this encounter
--- OUTSIDE RECORDS SUMMARY | 2024-08-31 15:10 | XMS_ITS | Clinical Summary ---
Author Organization [facility] Address [facility] [place] [address] Care Team Providers Care Speech Language Pathology Assistant Name Role Phone Eliu Vicente MD Primary Care Provider [phone] Allergies Active Allergy Reactions Criticality Noted Date Comments Nystatin Other (see comment) 08/26/2022 Burning pain with powder only not cream per patient Penicillins Rash Low 09/17/2021 Sulfa Antibiotics Rash Medium 09/17/2021 Medications fish oil (OMEGA-3 FATTY ACID) 1000 MG Cap capsule Take 1 capsule (1,000 mg total) by mouth daily. Active pravastatin (PRAVACHOL) 10 MG tabletIndicat ions:Hyperlip idemia Take 1 tablet by mouth nightly at bedtime. Indications: High Amount of Fats in the Blood Active latanoprost (XALATAN) 0.005 % ophthalmic solutionIndic ations:Glauco ma Place 1 drop into both eyes nightly at bedtime. Indications: Glaucoma Active metoprolol succinate ER (TOPROL-XL) 25 MG 24 hr tabletIndicat ions:Hyperten sangita Take 1.5 tablets by mouth daily. Indications: High Blood Pressure Active miconazole (MICOTIN) 2 % creamIndicati ons:Yeast Apply topically daily. Indications: Yeast Active ferrous sulfate, 65 mg elemental, 325 (65 FE) MG tablet [The details of the medication are not available because there are pending changes by a home health clinician.] 30 tablet 02/07/20 23 Active Additional Information Patient not taking.Reason: Other (no longer taking), Informant: Self, Reported on 08/15/2024 amLODIPine (NORVASC) 10 MG tabletIndicat ions:Hyperten sangita Take 1 tablet by mouth daily. Indications: High Blood Pressure 07/05/19 24 Active lisinopril (PRINIVIL) 20 MG tabletIndicat ions:Hyperten sangita Take 1 tablet by mouth daily. Indications: High Blood Pressure DIRECTED 02/13/20 24 Active traMADol (ULTRAM) 50 MG tabletIndicat ions:Acute Pain < 7 Day Supply Take 1 tablet (50 mg total) by mouth every 6 (six) hours as needed for Pain. Indications: Acute Pain < 7 Day Supply 15 tablet 08/07/19 25 Active famotidine (PEPCID) 20 MG tabletIndicat ions:Gastroes ophageal Reflux Disease Take 1 tablet (20 mg total) by mouth 2 (two) times daily. 20 tablet 08/07/19 25 Active furosemide (LASIX) 20 MG tabletIndicat ions:Congesti ve Heart Failure Take 1 tablet (20 mg total) by mouth daily. 30 tablet 08/11/19 25 Active NON FORMULARYIndi cations:Vitam in Deficiency Take 2 capsules by mouth 2 (two) times a day. olprima EPA/DHA Indications: Vitamin Deficiency 08/16/19 25 Active acetaminophen (TYLENOL) 500 MG tabletIndicat ions:Pain Take 1,000 mg by mouth every 6 (six) hours as needed for Pain. Indications: Pain 08/16/19 25 Active multi vitamin/principal examiner als (THERA-M ENHANCED) tabletIndicat ions:Vitamin Deficiency Take 1 tablet by mouth daily. Indications: Vitamin Deficiency 08/16/19 25 Active Calcium Carbonate-Vit D-Min (CALCIUM 1200 OR)Indication s:Calcium Deficiency Take 1 tablet by mouth daily. Indications: Calcium Deficiency 08/16/19 25 Active furosemide (LASIX) 20 MG tablet Take 2 tablets (40 mg total) by mouth daily. 30 tablet 03/19/19 24 025 Discontinued methylPREDNIS BULL carrington, (MEDROL DOSEPAK) 4 MG tablet Take 1 tablet (4 mg total) by mouth 2 (two) times daily. Follow package directions 1 each 08/07/19 25 025 Discontinued(St op Taking at Discharge) cefdinir (OMNICEF) 300 MG Cap capsule [The details of the medication are not available because there are pending changes by a home health clinician.] 5 capsule 08/11/19 25 025 Additional Information Patient not taking.Reason: Physican Directed (therapy complete), Informant: Self, Reported on 08/15/2024 Active Problems Problem Noted Date Diagnosed Date CINDY (acute kidney injury) 08/08/2024 Acute CHF (congestive heart failure) ([facility] S/HCC) 02/03/2023 Essential hypertension 01/07/2023 Overview (02/04/2023): Last Assessment & Plan: Impression: [...] with repeat lower extremity arterial Doppler in [place]. E-coli UTI 08/29/2022 Sepsis due to Escherichia co li without acute organ dysfunction ([facility]) 08/29/2022 Pyelonephritis 08/26/2022 Encounters Date Type Department Care Team Description 08/31/2024 10:15 AM CDT Home Care Visit [address] [address] Juan Vora, PRISON KEEPER PRISON KEEPER HOME VISIT 08/30/2024 2:56 PM CDT Hospital Encounter [facility] [address] [place] [address] Eliu Vicente MD 08/30/2024 10:00 AM CDT Home Care Visit [address] [address] María Adler LPN SN HOME VISIT 08/30/2024 Orders Only [facility] [address] [place] [address] Eliu Vicente MD 08/29/2024 11:00 AM CDT Home Care Visit [address] [address] Juan Vora, PRISON KEEPER PRISON KEEPER HOME VISIT 08/29/2024 8:45 AM CDT Home Care Visit [address] [address] Dawson Daniels, OT OT DISCIPLINE DISCHARGE 08/24/2024 1:45 PM CDT Home Care Visit [facility] Home [address] [address] Juan Vora, PRISON KEEPER PRISON KEEPER HOME VISIT 08/24/2024 11:15 AM CDT Home Care Visit [facility] Home [address] [address] Fátima Hendrickson, BRAIDED RUG MAKER YUAN HOME VISIT 08/22/2024 2:00 PM CDT Home Care Visit [address] [address] Jemima Schreiber OTA YUAN HOME VISIT 08/22/2024 10:15 AM CDT Home Care Visit [address] [address] Diane Gaitan LPN SN HOME VISIT 08/21/2024 10:30 AM CDT Home Care Visit [address] [address] Laura Black, PT PT INITIAL EVALUATION 08/17/2024 10:30 AM CDT Home Care Visit [address] [address] Dawson Daniels, OT OT INITIAL EVALUATION 08/17/2024 Home Care Visit [address] [address] Laura Black, PT CASE COMMUNICATION 08/15/2024 3:42 PM CDT - 08/15/2024 11:59 PM CDT Hospital Encounter [facility] [address] [place] [address] Nadia Craft, APNP Discharge Disposition: Home or Self Care (Routine Discharge) 08/15/2024 1:00 PM CDT Home Care Visit [address] [address] Darlin Sharif, RN SN OASIS START OF CARE 08/15/2024 Plan of Care Documentation [address] [address] 08/08/2024 1:41 PM CDT - 08/10/2024 1:00 PM CDT Hospital Encounter [facility] [address] [place] [address] Raudel Tapia MD Suresh, MD Amaya Gibson Mary C, APNP Fall Discharge Disposition: Home or Self Care (Routine Discharge) 08/08/2024 Travel 08/06/2024 7:16 PM CDT - 08/06/2024 10:10 PM CDT Emergency [facility] Emergency Room [address] [place] [address] Ketan Aguilera MD Hip Pain Discharge Disposition: Home or Self Care (Routine Discharge) 08/06/2024 Travel from Last 3 Months Immunizations Immunization Administration Dates Next Due Influenza (Generic) 11/27/2019,11/29/2018 Influenza Adult (Generic) 11/25/2019,01/05/2014 MODERNA COVID-19 (12+) MRNA, LNP-S, PF, 100 MCG/ 0.5 ML DOSE 05/03/2020,04/05/2020 Pneumococcal (Pneumovax 23) 12/23/2010 Pneumococcal (Prevnar 13) 11/02/2014 Tdap (Boostrix) 10/24/2021 Family History Medical History Relation Comments Cancer Father Heart Attack Father cad Father Hypertension Mother Relation Status Comments Father Mother Social History Tobacco Use Types Packs/Day Years Used Date Smoking Tobacco: Never Smokeless Tobacco: Never Tobacco Cessation:Counseling Given: Not Answered Alcohol Use Standard Drinks/Week Comments Not Currently [...] materials from doctor or pharmacy Never 08/15/2024 [facility] Utilities Answer Date Recorded In the past 12 months has th e [employer], gas, oil, or water [employer] threatened to shut off services in your [...] any clubs o r organizations such as holiness groups, unions, fraternal or athletic groups, or [...] Recorded Patient Health Questionnaire-2 Score 0 08/26/2022 [facility] [place] of Occupat ional Health - Occupational Stress [...] in a half-way (including now)? No 02/04/2023 Housing Stability Vital Sign Answer Papo e Recorded In the last 12 months, was t here a time when you were not able to pay the mortgage or rent on time? No 08/08/2024 In the past 12 months, how m any times have you moved where you were living? 0 08/08/2024 At any time in the past 12 m [facility], were you homeless or living in a half-way (including now)? 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 Legal Sex Female 11:51 PM CDT Gender Identity Female 08/06/2024 7:26 PM CDT Sexual Orientation Straight 08/06/2024 7: 26 PM CDT Last Filed Vital Signs Vital Sign Reading Time Taken Comments Blood Pressure 132/62 08/30/2024 10:29 AM CDT Pulse 62 08/30/2024 10:29 AM CDT Temperature 36.6 C (97.8 F) 08/30/2024 10:29 AM CDT Respiratory Rate 16 08/30/2024 10:29 AM CDT Oxygen Saturation 96% 08/30/2024 10:29 AM CDT Inhaled Oxygen Concentration - - Weight 78.5 kg (173 lb) 08/30/2024 10:29 AM CDT Height 160 cm (5' 3) 08/08/2024 6:44 PM CDT Body Mass Index 30.65 08/08/2024 6:44 PM CDT Plan of Treatment Upcoming Encounters Date Type Department Care Team (Late st Contact Info) Description 09/04/2024 10:00 AM CDT Home Care Visit [facility] Home Care [address] [place] [address] Juan Vora PTA 09/05/2024 9:00 AM CDT Home Care Visit [facility] Care [address] [address] Augustina Maurice, RN [phone] (Work) 09/06/2024 9:00 AM CDT Appointment [facility] Care [address] [place] [address] Laura Black, PT [address] [place] [address] 09/18/2024 9:30 AM CDT [facility] [address] [place] [id number] Jhonny Reese MD [address] [address] Health Maintenance Due Date Last Done Comments Zoster Vaccines (1 of 2) 07/04/1985 Annual Medicare Wellness Visit 07/04/2000 RSV Immunization or 60+ Years (1 - 1-dose 75+ series) 07/04/2010 COVID-19 Vaccine (3 2023-2 5 season) 2023 05/03/2020, 04/05/2020 DTaP, [...] on patient's age to complete this topic Goals Goal Patient Goal Type Associated Problems Recent Progress Patient-Stated? Author Family - family caregiver with be involved in care transitions and discharge planning Lifestyle Apryl Hancock RN Procedures Procedure Name Priority Date/Time Associated Diagnosis Comments URINE BACTERIA CULTURE Routine 11:30 AM CDT UTI (urinary tract infection) HC URINALYSIS AUTO W/O MICRO Routine 08/30/2024 11:30 AM CDT UTI (urinary tract infection) BASIC METABOLIC PANEL Routine 08/15/2024 2:50 PM CDT CINDY (acute kidney injury) CBC W/DIFF AUTOMATED Routine 08/10/2024 5:09 AM CDT BASIC METABOLIC PANEL Routine 08/10/2024 5:09 AM CDT US RETROPERITONEAL LTD Today 5 2:50 PM CDT TSH W/REFLEX Routine 08/09/2024 12:50 PM CDT BASIC METABOLIC PANEL TIMED 08/09/2024 12:50 PM CDT URINE BACTERIA CULTURE Routine 10:10 AM CDT URINALYSIS MICRO ONLY Routine 08/09/2024 10:10 AM CDT HC URINALYSIS AUTO W/O MICRO Routine 08/09/2024 10:10 AM CDT VITAMIN B12 / FOLATE Routine 08/09/2024 5:18 AM CDT FERRITIN Routine 08/09/2024 5:18 AM CDT IRON SAT PANEL (IRON,IBC,%SAT) Routine 08/09/2024 5:18 AM CDT HEPATIC FUNCTION PANEL Routine 5:18 AM CDT MAGNESIUM Routine 08/09/2024 5:18 AM CDT BASIC METABOLIC PANEL Routine 08/09/2024 5:18 AM CDT CBC W/DIFF AUTOMATED Routine 08/09/2024 5:18 AM CDT TROPONIN, QUANT STAT 08/08/2024 3:24 PM CDT BASIC METABOLIC PANEL STAT 08/08/2024 3:24 PM CDT CBC W/DIFF AUTOMATED STAT 08/08/2024 3:24 PM CDT XR SHOULDER RT MIN 2V STAT 08/08/2024 3:17 PM CDT XR KNEE RT 3V STAT 08/08/2024 3:[address] CERV SPINE WO CON STAT 08/08/2024 2:[address] HEAD WO CON STAT 08/08/2024 2:27 PM CDT ECG 12-LEAD Routine 08/08/2024 2:[address] PEL WO CON STAT 08/06/2024 8:[address] LUMB SPINE WO CON STAT 08/06/2024 8:28 PM CDT PRO-BRAIN NATRIURETIC PEPTIDE Routine 08/06/2024 8:16 PM CDT SED RATE, ERYTHROCYTE (ESR) STAT 08/06/2024 8:16 PM CDT COMPREHENSIVE METABOLIC PANEL STAT 08/06/2024 8:16 PM CDT CBC W/DIFF AUTOMATED STAT 08/06/2024 8:16 PM CDT XR PELVIS 1 OR 2 VIEWS STAT 8:14 PM CDT XR LUMB SPINE 3V STAT 08/06/2024 8:14 PM CDT from Last 3 Months Results * (ABNORMAL) URINALYSIS (08/30/2024 11:30 AM CDT) Only the most recent of2 resultswithin the time period is included. COLOR (U) YELLOW 08/30/2024 4:14 PM CDT [facility] TRANSPARENCY CLEAR 08/30/2024 4:14 PM CDT [facility] SPECIFIC GRAVITY (U) 1.010 1.002 - 1.030 08/30/2024 4:[address] [facility] U PH 6.5 4.5 - 8.0 08/30/2024 4:[address] [facility] LEUKOCYTES (U) 3+(A) NEGATIVE 08/30/2024 4:[address] [facility] NITRITES NEGATIVE NEGATIVE 08/30/2024 4:14 PM CDT [facility] PROTEIN RANDOM (U) 1+(A) NEGATIVE 08/30/2024 4:[address] [facility] GLUCOSE (U) NEGATIVE NEGATIVE 08/30/2024 4:14 PM CDT [facility] KETONES MG/DL (U) NEGATIVE NEGATIVE 08/30/2024 4:14 PM CDT [facility] UROBILINOGEN NORMAL NORMAL EU/DL 08/30/2024 4:14 PM CDT [facility] BILIRUBIN (U) NEGATIVE NEGATIVE 08/30/2024 4:14 PM CDT [facility] BLOOD (U) 1+(A) NEGATIVE 08/30/2024 4:14 PM CDT [facility] WBC/HPF 5-10 /HPF 08/30/2024 4:14 PM CDT [facility] RBC/HPF 0-2 /HPF 08/30/2024 4:14 PM CDT [facility] EPI/HPF 0-5 /HPF 08/30/2024 4:14 PM CDT [facility] BACTERIA (U) 3+ /HPF 08/30/2024 4:14 PM CDT [facility] URINE SPECIMEN / Unknown 08/30/2024 11:30 AM CDT us Eliu Vicente MD URINE ORDERABLES Final Result [facility] [address] [place] [address], * URINE BACTERIA CULTURE (08/30/2024 11:30 AM CDT) Only the most recent of2 resultswithin the time period is included. SPEC DESCRIPTION URINE, UNSPECIFIED 08/30/2024 2:58 PM CDT [facility] SPECIAL REQUESTS NO SPECIAL REQUEST 08/30/2024 2:58 PM CDT [facility] CULTURE RESULT MULTIPLE ORGANISMS PRESENT, PROBABLE CONTAMINATION. SUGGEST REPEAT CULTURE. 08/31/2024 11:49 AM CDT [facility] URINE SPECIMEN / Unknown 08/30/2024 11:30 AM CDT 08/30/2024 2:59 PM CDT us Eliu Vicente MD MICROBIOLOGY - GENERAL ORDERA BLES Final Result [facility] [address] [facility] [place] [address], [place] [phone] [facility] [address] [place] [address], [place] [phone] * (ABNORMAL) BASIC METABOLIC PANEL (08/15/2024 2:50 PM CDT) Only the most recent of5 resultswithin the time period is included. SODIUM S/P/B 139 136 - 145 MMOL/L 08/15/2024 4:09 PM CDT [facility] POTASSIUM S/P/B 4.2 3.5 - 5.1 MMOL/L 08/15/2024 4:09 PM CDT [facility] CHLORIDE S/P/B 104 98 - 107 MMOL/L 08/15/2024 4:09 PM CDT [facility] CO2 25.2 21.0 - 32.0 MMOL/L 08/15/2024 4:09 PM CDT [facility] GLUCOSE 114(H) 70 - 99 MG/DL 08/15/2024 4:09 PM CDT [facility] Comment: FASTING GLUCOSE 100 TO 125 MG/DL IS CONSISTENT WITH IMPAIRED FASTING GLUCOSE. FASTING GLUCOSE >125 MG/DL IS CONSISTENT WITH DIABETES. RANDOM GLUCOSE >200 MG/DL WITH HYPERGLYCEMIC SYMPTOMS IS CONSISTENT WITH DIABETES. PER ADA GUIDELINES BUN 46(H) 6 - 24 MG/DL 08/15/2024 4:09 PM CDT [facility] CREATININE S/P/B 1.70(H) 0.55 - 1.02 MG/DL 08/15/2024 4:09 PM CDT [facility] CALCIUM S/P/B 8.9 8.4 - 10.5 MG/DL 08/15/2024 4:09 PM CDT [facility] ANION GAP 9.8 5.0 - 15.0 MMOL/L 08/15/2024 4:09 PM CDT [facility] OSMOLALITY (CALC) 301 MOSM/KG 025 4:09 PM CDT [facility] Comment:REFERENCE RANGE NOT ESTABLISHED GFR ESTIMATE 28(L) >89 ML/MIN/1. 73 M2 08/15/2024 4:09 PM CDT [facility] GFR NOTES GFR REFERENCE S: 08/15/2024 4:09 PM CDT [facility] Comment: THE ESTIMATED GFR IS CALCULATED USING THE 2020 CKD-EPI EQUATION. THE FOLLOWING CATEGORIES FOR GRADING RENAL FUNCTION ARE RECOMMENDED BY THE INTERNATIONAL SOCIETY OF NEPHROLOGY (KDIGO 2012 CLINICAL PRACTICE GUIDELINE). G1,NORMAL OR HIGH: >89 ml/min/1.73 m2 G2,MILDLY DECREASED: 60-89 ml/min/1.73 m2 G3A,MILDLY TO MODERATELY DECREASED: 45-59 ml/min/1.73 m2 G3B,MODERATELY TO SEVERELY DECREASED: 30-44 ml/min/1.73 m2 G4,SEVERELY DECREASED: 15-29 ml/min/1.73 m2 G5,KIDNEY FAILURE: <15 ml/min/1.73 m2 08/15/2024 2:50 PM CDT Nadia MORRISON LABORATORY Final Res ult [facility] [address] [place] [address], * (ABNORMAL) CBC W/DIFF AUTOMATED (08/10/2024 5:09 AM CDT) Only the most recent of4 resultswithin the time period is included. WBC 10.70 4.4 - 11.0 x10'3/uL 08/10/2024 6:[address] [facility] RBC 2.98(L) 4.50 - 5.10 x10'6/uL 08/10/2024 6:14 AM CDT [facility] HGB 9.4(L) 12.3 - 15.3 G/DL 08/10/2024 6:14 AM T [facility] HCT 28.8(L) 35.9 - 44.6 % 08/10/2024 6:14 AM CDT [facility] MCV 96.6(H) 80.0 - 96.0 FL 08/10/2024 6:14 AM CDT [facility] MCH 31.5(H) 25.3 - 30.9 PG 08/10/2024 6:14 AM T [facility] MCHC 32.6 31.0 - 34.1 G/DL 08/10/2024 6:14 AM T [facility] RDW 13.1 12.4 - 15.1 % 08/10/2024 6:14 AM T [facility] PLT 219 151 - 353 x10'3/uL 08/10/2024 6:14 AM T [facility] MPV 10.7 9.6 - 12.0 FL 08/10/2024 6:14 AM T [facility] RBC MORPHOLOGY NORMAL 08/10/2024 6:14 AM T [facility] PLT MORPH. NORMAL 08/10/2024 6:14 AM T [facility] WBC MORPHOLOGY NORMAL 08/10/2024 6:14 AM CDT [facility] LYMPHOCYTES % 19.3 15.8 - 45.0 % 08/10/2024 6:14 AM CDT [facility] NEUTROPHILS % 65.5 42.1 - 71.9 % 08/10/2024 6:14 AM CDT [facility] MONOCYTES % 13.7(H) 5.7 - 12.5 % 08/10/2024 6:14 AM CDT [facility] EOSINOPHILS 0.1 0.0 - 5.6 % 08/10/2024 6:14 AM CDT [facility] BASOPHILS 0.1 0.0 - 1.3 % 08/10/2024 6:14 AM CDT [facility] ABS. NEUTROPHILS 7.01(H) 1.40 - 6.00 x10'3/uL 08/10/2024 6:14 AM CDT [facility] IMMATURE GRANS % 1.3(H) 0.0 - 0.5 % 08/10/2024 6:14 AM CDT [facility] ABS. LYMPHOCYTES 2.06 0.80 - 4.70 x10'3/uL 08/10/2024 6:14 AM CDT [facility] 08/10/2024 5:09 AM CDT Nadia Craft AP LABORATORY Final Res ult [facility] [address] [place] [address], * US RETROPERITONEAL LTD (08/09/2024 2:50 PM CDT) Anatomical Region Laterality Modality Renal Ultrasound 08/09/2024 3:19 PM CDT Impressions 08/09/2024 3:21 PM CDT IMPRESSION: No hydronephrosis.. No focal renal mass Ordered By: NADIA CRAFT Interpreted By: Marilou Rooney, 08/09/2024 3:19 PM Narrative 08/09/2024 3:21 PM CDT [facility] [address] [place] [phone] IMAGING STUDIES: US RETROPERITONEAL LTD DATE: 08/09/2024 2:05 PM CLINICAL HISTORY: cindy . FINDINGS: RIGHT KIDNEY MEASURES 9.1 x 5.1 x 5.1 cm. LEFT KIDNEY MEASURES 10.3 x 5.5 x 4.5 cm. No evidence of hydronephrosis or focal renal mass. Renal cortical volume is well-maintained.. Urinary bladder without focal mass. Ureteral jets not visualized during the course of this exam. Procedure Note Santy Rooney MD - 08/09/2024 [facility] [address] [place] [phone] IMAGING STUDIES: US RETROPERITONEAL LTD DATE: 08/09/2024 2:05 PM CLINICAL HISTORY: cindy . FINDINGS: RIGHT KIDNEY MEASURES 9.1 x 5.1 x 5.1 cm. LEFT KIDNEY MEASURES 10.3 x 5.5 x 4.5 cm. No evidence of hydronephrosis or focal renal mass. Renal cortical volume is well-maintained.. Urinary bladder without focal mass. Ureteral jets not visualized duringthe course of this exam. IMPRESSION: No hydronephrosis.. No focal renal mass Ordered By: NADIA CRAFT Interpreted By: Marilou Rooney, 08/09/2024 3:19 PM Nadia MORRISON ULTRASOUND Final Res ult * TSH W/REFLEX (08/09/2024 12:50 PM CDT) TSH 0.752 0.358 - 3.74 uIU/ML 08/09/2024 1:[address] [facility] Comment: HIGH DOSES OF BIOTIN MAY INTERFERE WITH THIS TEST RESULT. CORRELATION TO CLINICAL HISTORY AND PRESENTATION RECOMMENDED. FREE T4 NOT INDICATED 08/09/2024 12:5 0 PM CDT Nadia RAYGOZA LABORATORY Final Res ult [facility] [address] [place] [address], [place] [phone] * URINALYSIS MICRO ONLY (08/09/2024 10:10 AM CDT) WBC/HPF 5-10 0 - 5 /HPF 08/09/2024 10:50 AM CDT [facility] RBC/HPF NONE SEEN 0 - 5 /HPF 08/09/2024 10:50 AM CDT [facility] EPI/HPF FEW /HPF 08/09/2024 10:50 AM CDT [facility] BACTERIA (U) MODERATE /HPF 08/09/2024 10:50 AM CDT [facility] 08/09/2024 10:1 0 AM CDT us Nadia MORRISON URINE ORDERABLES Final Re sult Performing Organization Address City/[facility]/ZIP Co de Phone Number [facility] [address] [place] [address], [place] [phone] * VITAMIN B12 / FOLATE (08/09/2024 5:18 AM CDT) VITAMIN B12 S/P/B 459 193 - 986 PG/ML 08/09/2024 9:52 AM CDT [facility] FOLATE >20.0 8.6 - 58.9 NG/ML 08/09/2024 9:52 AM CDT [facility] 08/09/2024 5:18 AM CDT us Nadia MORRISON LABORATORY Final Res ult Performing Organization Address City/[facility]/ZIP Co de Phone Number [facility] [address] [place] [address], [place] [phone] * IRON SAT PANEL (IRON,IBC,%SAT) (08/09/2024 5:18 AM CDT) Pathologist [facility] IRON 67 50 - 170 MCG/DL 08/09/2024 9:56 AM CDT [facility] IRON BINDING CAPACITY 302 250 - 450 MCG/DL 08/09/2024 9:56 AM CDT [facility] IRON SATURATION 22 20 - 55 % 9:56 AM CDT [facility] 08/09/2024 5:18 AM CDT Nadia Craft APNP LABORATORY Final Res ult [facility] [address] [place] [address], * (ABNORMAL) HEPATIC FUNCTION PANEL (08/09/2024 5:18 AM CDT) Pathologist [facility] TOTAL PROTEIN S/P/B 6.9 6.4 - 8.2 G/DL 08/09/2024 9:24 AM CDT [facility] ALBUMIN S/P/B 3.2(L) 3.4 - 5.0 G/DL 08/09/2024 9:24 AM CDT [facility] BILIRUBIN TOTAL S/P/B 0.6 0.2 - 1.2 MG/DL 08/09/2024 9:24 AM CDT [facility] BILIRUBIN DIRECT S/P/B 0.2 0.0 - 0.20 MG/DL 08/09/2024 9:24 AM T [facility] BILIRUBIN INDIRECT S/P/B 0.4 0.0 - 0.9 MG/DL 08/09/2024 9:24 AM CDT [facility] ALKALINE PHOSPHATASE S/P/B 39(L) 50 - 136 U/L 08/09/2024 9:24 AM CDT [facility] AST 33 15 - 37 U/L 08/09/2024 9:24 AM CDT [facility] ALT 22 14 - 55 U/L 08/09/2024 9:24 AM CDT [facility] A/G RATIO 0.9(L) 1.0 - 2.0 RATIO 08/09/2024 9:24 AM CDT [facility] 08/09/2024 5:18 AM CDT Nadia MORRISON LABORATORY Final Res ult Performing Organization Address City/[facility]/ZIP Co de Phone Number [facility] [address] [place] [address], [place] [phone] * (ABNORMAL) MAGNESIUM (08/09/2024 5:18 AM CDT) MAGNESIUM 2.6(H) 1.8 - 2.4 MG/DL 08/09/2024 7:14 AM CDT [facility] 08/09/2024 5:18 AM CDT Chikis Leon PA-C LABORATORY Final Result Performing Organization Address City/[facility]/ZIP Co de Phone Number [facility] [address] [place] [address], [place] [phone] * FERRITIN (08/09/2024 5:18 AM CDT) FERRITIN 169.0 8.0 - 388.0 NG/ML 08/09/2024 9:24 AM CDT [facility] 08/09/2024 5:18 AM CDT us Nadia Pettithn APNP LABORATORY Final Res ult Performing Organization Address City/[facility]/ZIP Co de Phone Number [facility] [address] [place] [address], [place] [phone] * TROPONIN, QUANT (08/08/2024 3:24 PM CDT) TROPONIN I HIGH SENSITIVITY 23 0 - 50 ng/L 08/08/2024 3:58 PM CDT [facility] Comment: HIGH DOSES OF BIOTIN, TROPONIN-SPECIFIC AUTOANTIBODIES, AND ANTIBODY THERAPY CONTAINING HAMA MAY INTERFERE WITH THIS TEST RESULT. CORRELATION TO CLINICAL HISTORY AND PRESENTATION RECOMMENDED. 08/08/2024 3:24 PM CDT Raudel Tapia MD LABORATORY Fi nal Result Performing Organization Address [facility]/ZIP Co de Phone Number [facility] [address] [place] [address], [place] [phone] * XR SHOULDER RT MIN 2V (08/08/2024 3:17 PM CDT) Anatomical Region Laterality Modality Shoulder Radiographic Judy ging 08/08/2024 3:08 PM CDT Impressions 08/08/2024 3:08 PM CDT IMPRESSION: 1) Chronic degenerative osteoarthritis. No evidence of acute fracture or dislocation. Ordered By: RAUDEL TAPIA Interpreted By: Quintin Smallwood MD, 08/08/2024 3:08 PM Narrative 08/08/2024 3:08 PM CDT [place] [id number] [facility] [place] [address] Examination: XR SHOULDER RT MIN 2V Exam time: 08/08/2024 2:01 PM Clinical history: Injury, shoulder pain Comparison: None Technique: AP internal/external rotation views right shoulder, transscapular view Findings: No acute soft tissue abnormality. No evidence of acute fracture or dislocation. No focal lytic bone destructive lesion. Chronic changes of degenerative osteoarthritis involving the glenohumeral joint and the AC joint. Procedure Note Quintin Smallwood MD - 08/08/2024 [facility] [address] [facility] [place] [address] Examination: XR SHOULDER RT MIN 2V Exam time: 08/08/2024 2:01 PM Clinical history: Injury, shoulder pain Comparison: None Technique: AP internal/external rotation views right shoulder,transscapular view Findings: No acute soft tissue abnormality. No evidence of acute fractureor dislocation. No focal lytic bone destructive lesion. Chronic changes ofdegenerative osteoarthritis involving the glenohumeral joint and the ACjoint. IMPRESSION: 1) Chronic degenerative osteoarthritis. No evidence of acute fracture ordislocation. Ordered By: RAUDEL TAPIA Interpreted By: Quintin Smallwood MD, 08/08/2024 3:08 PM us Raudel Tapia MD GENERAL IMAGING Fi nal Result * XR KNEE RT 3V (08/08/2024 3:17 PM CDT) Anatomical Region Laterality Modality Knee Radiographic Judy ging 08/08/2024 3:08 PM CDT Impressions 08/08/2024 3:09 PM CDT IMPRESSION: 1) No acute radiographic abnormality. Ordered By: RAUDEL TAPIA Interpreted By: Quintin Smallwood MD, 08/08/2024 3:08 PM Narrative 08/08/2024 3:09 PM CDT [facility] [address] [place] [id number] Examination: XR KNEE RT 3V Exam time: 08/08/2024 2:01 PM Clinical history: Trauma Comparison: None Technique: AP, lateral and sunrise views Findings: No acute soft tissue abnormality. No gross joint effusion. Total right knee prosthesis. No evidence of complication involving the hardware. No evidence of acute fracture. Procedure Note Quintin Smallwood MD - 08/08/2024 [facility] [address] [place] [address] Examination: XR KNEE RT 3V Exam time: 08/08/2024 2:01 PM Clinical history: Trauma Comparison: None Technique: AP, lateral and sunrise views Findings: No acute soft tissue abnormality. No gross joint effusion. Totalright knee prosthesis. No evidence of complication involving the hardware.No evidence of acute fracture. IMPRESSION: 1) No acute radiographic abnormality. Ordered By: RAUDEL TAPIA Interpreted By: Quintin Smallwood MD, 08/08/2024 3:08 PM Raudel Tapia MD GENERAL IMAGING Fi nal Result * CT HEAD WO CON (08/08/2024 2:27 PM CDT) Anatomical Region Laterality Modality Head Computed Tomogra phy 08/08/2024 2:55 PM CDT Impressions 08/08/2024 2:57 PM CDT IMPRESSION: 1. No CT evidence of an acute intracranial abnormality. 2. No cervical spine fracture. 3. Scattered subcortical and periventricular white matter foci demonstrating hypodensity that are nonspecific but most commonly seen in setting of chronic small vessel ischemic change. Ordered By: RAUDEL TAPIA Interpreted By: Julito Guillen MD, 08/08/2024 2:55 PM Narrative 08/08/2024 2:57 PM CDT [facility] [address] [place] [address] Examination: CT CERV SPINE WO CON, CT HEAD WO CON, 08/08/2024 2:21 PM. Technique: Computed tomographic images of the head and cervical spine were obtained without intravenous contrast. Additional coronal and sagittal reformatted images were generated at a separate workstation. A dose lowering technique was used for this procedure, which may include, but is not limited to, dose reduction technique, automated exposure control, the use of iterative reconstruction, and ALARA (As Low As Reasonably Achievable) / Image Gently techniques. Clinical history: Fall Comparison: Right-sided numbness, leg weakness, ground-level fall Findings: CT head: There is no acute intracranial hemorrhage. There is no extra-axial fluid collection. Mild global cerebral volume loss with ex vacuo dilatation of ventricles and cerebral sulci. Scattered subcortical and periventricular white matter foci demonstrating hypodensity that are nonspecific but most commonly seen in setting of chronic small vessel ischemic change. Moderate arterial sclerotic calcification the cavernous segments the internal carotid arteries bilaterally. Prior bilateral ocular lens extractions with prosthetic lens implantation. Mild mucosal thickening involving the inferior portions of the maxillary sinuses bilaterally. Mastoid air cells are well aerated. No acute fracture CT cervical spine: The cervical vertebral bodies and facets are well aligned. The cervical vertebral body heights are preserved. No acute fracture nor destructive process of the visualized osseous structures. No abnormal prevertebral or paraspinal soft tissue swelling. Procedure Note Julito Guillen MD - 08/08/2024 [facility] [address] [facility] [place] [address] Examination: CT CERV SPINE WO CON, CT HEAD WO CON, 08/08/2024 2:21 PM. Technique: Computed tomographic images of the head and cervical spine wereobtained without intravenous contrast. Additional coronal and sagittalreformatted images were generated at a separate workstation. A doselowering technique was used for this procedure, which may include, but isnot limited to, dose reduction technique, automated exposure control, theuse of iterative reconstruction, and ALARA (As Low As ReasonablyAchievable) / Image Gently techniques. Clinical history: Fall Comparison: Right-sided numbness, leg weakness, ground-level fall Findings: CT head: There is no acute intracranial hemorrhage. There is noextra-axial fluid collection. Mild global cerebral volume loss with exvacuo dilatation of ventricles and cerebral sulci. Scattered subcorticaland periventricular white matter foci demonstrating hypodensity that arenonspecific but most commonly seen in setting of chronic small vesselischemic change. Moderate arterial sclerotic calcification the cavernoussegments the internal carotid arteries bilaterally. Prior bilateral ocularlens extractions with prosthetic lens implantation. Mild mucosalthickening involving the inferior portions of the maxillary sinusesbilaterally. Mastoid air cells are well aerated. No acute fracture CT cervical spine: The cervical vertebral bodies and facets are wellaligned. The cervical vertebral body heights are preserved. No acutefracture nor destructive process of the visualized osseous structures. Noabnormal prevertebral or paraspinal soft tissue swelling. IMPRESSION: 1. No CT evidence of an acute intracranial abnormality. 2. No cervical spine fracture. 3. Scattered subcortical and periventricular white matter focidemonstrating hypodensity that are nonspecific but most commonly seen insetting of chronic small vessel ischemic change. Ordered By: RAUDEL TAPIA Interpreted By: Julito Guillen MD, 08/08/2024 2:55 PM Raudel Tapia MD CT Fi nal Result * CT CERV SPINE WO CON (08/08/2024 2:27 PM CDT) Anatomical Region Laterality Modality Spine Computed Tomogra phy 08/08/2024 2:55 PM CDT Impressions 08/08/2024 2:57 PM CDT IMPRESSION: 1. No CT evidence of an acute intracranial abnormality. 2. No cervical spine fracture. 3. Scattered subcortical and periventricular white matter foci demonstrating hypodensity that are nonspecific but most commonly seen in setting of chronic small vessel ischemic change. Ordered By: RAUDEL TAPIA Interpreted By: Julito Guillen MD, 08/08/2024 2:55 PM Narrative 08/08/2024 2:57 PM CDT [facility] [address] [place] [address] Examination: CT CERV SPINE WO CON, CT HEAD WO CON, 08/08/2024 2:21 PM. Technique: Computed tomographic images of the head and cervical spine were obtained without intravenous contrast. Additional coronal and sagittal reformatted images were generated at a separate workstation. A dose lowering technique was used for this procedure, which may include, but is not limited to, dose reduction technique, automated exposure control, the use of iterative reconstruction, and ALARA (As Low As Reasonably Achievable) / Image Gently techniques. Clinical history: Fall Comparison: Right-sided numbness, leg weakness, ground-level fall Findings: CT head: There is no acute intracranial hemorrhage. There is no extra-axial fluid collection. Mild global cerebral volume loss with ex vacuo dilatation of ventricles and cerebral sulci. Scattered subcortical and periventricular white matter foci demonstrating hypodensity that are nonspecific but most commonly seen in setting of chronic small vessel ischemic change. Moderate arterial sclerotic calcification the cavernous segments the internal carotid arteries bilaterally. Prior bilateral ocular lens extractions with prosthetic lens implantation. Mild mucosal thickening involving the inferior portions of the maxillary sinuses bilaterally. Mastoid air cells are well aerated. No acute fracture CT cervical spine: The cervical vertebral bodies and facets are well aligned. The cervical vertebral body heights are preserved. No acute fracture nor destructive process of the visualized osseous structures. No abnormal prevertebral or paraspinal soft tissue swelling. Procedure Note Julito Guillen MD - 08/08/2024 [facility] [address] [facility] [place] [address] Examination: CT CERV SPINE WO CON, CT HEAD WO CON, 08/08/2024 2:21 PM. Technique: Computed tomographic images of the head and cervical spine wereobtained without intravenous contrast. Additional coronal and sagittalreformatted images were generated at a separate workstation. A doselowering technique was used for this procedure, which may include, but isnot limited to, dose reduction technique, automated exposure control, theuse of iterative reconstruction, and ALARA (As Low As ReasonablyAchievable) / Image Gently techniques. Clinical history: Fall Comparison: Right-sided numbness, leg weakness, ground-level fall Findings: CT head: There is no acute intracranial hemorrhage. There is noextra-axial fluid collection. Mild global cerebral volume loss with exvacuo dilatation of ventricles and cerebral sulci. Scattered subcorticaland periventricular white matter foci demonstrating hypodensity that arenonspecific but most commonly seen in setting of chronic small vesselischemic change. Moderate arterial sclerotic calcification the cavernoussegments the internal carotid arteries bilaterally. Prior bilateral ocularlens extractions with prosthetic lens implantation. Mild mucosalthickening involving the inferior portions of the maxillary sinusesbilaterally. Mastoid air cells are well aerated. No acute fracture CT cervical spine: The cervical vertebral bodies and facets are wellaligned. The cervical vertebral body heights are preserved. No acutefracture nor destructive process of the visualized osseous structures. Noabnormal prevertebral or paraspinal soft tissue swelling. IMPRESSION: 1. No CT evidence of an acute intracranial abnormality. 2. No cervical spine fracture. 3. Scattered subcortical and periventricular white matter focidemonstrating hypodensity that are nonspecific but most commonly seen insetting of chronic small vessel ischemic change. Ordered By: RAUDEL TAPIA Interpreted By: Julito Guillen MD, 08/08/2024 2:55 PM us Raudel Tapia MD CT Fi nal Result * ECG 12 lead (08/08/2024 2:06 PM CDT) 08/08/2024 2:06 PM CDT Narrative [facility] ([facility] RAD - 08/11/2024 1:15 PM CDT 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 No acute fracture or traumatic subluxation in the lumbar spine or pelvis. 2. Multilevel degenerative changes in the lumbar spine. 3. L4 on L5 anterolisthesis, measuring 6-7 mm similar to 08/26/2022. 4. Small amount of nonspecific free fluid in the lower abdomen/pelvis. 5. Diffuse soft tissue anasarca. 6. Small amount of air in the anterior urinary bladder. Correlation with recent instrumentation is recommended. Cystitis is less likely. 7. Additional findings as above. Referred By: Interpreted By: Dick Parry MD, 08/06/2024 8:41 PM Narrative 08/06/2024 8:51 PM CDT [facility] [address] [place] [address] EXAMINATION: CT Pelvis without contrast, CT lumbar spine without contrast [id number] EXAM DATE/TIME: 08/06/2024 8:15 PM CLINICAL HISTORY: Left hip and lower back pain COMPARISON: CT abdomen pelvis 08/26/2022 TECHNIQUE: Axial CT images of the pelvis and lumbar spine are obtained without the use of IV contrast agent. Subsequent coronal and sagittal reformatted sequences are created for evaluation. A dose lowering technique was used for this procedure, which may include, but is not limited to, dose reduction technique, automated exposure control, iterative reconstruction, ALARA (As Low As Reasonably Achievable), or Image Gently techniques. FINDINGS: No acute fracture or traumatic subluxation in the pelvis or lumbar spine. 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 There is 6-7 mm of anterolisthesis of L4 on L5 similar to prior CT abdomen pelvis 08/26/2022. Otherwise, vertebral body height and alignment are preserved in the lumbar spine. Multilevel degenerative changes in the lumbar spine. Small amount of free fluid is seen in the lower abdomen/pelvis. Diffuse soft tissue anasarca. Small amount of air is seen in the anterior urinary bladder. Small ventral abdominal wall hernias are seen, with mild amount of fluid within the left of midline ventral hernia. Cholecystectomy. Colonic diverticulosis. Bilateral perinephric stranding, nonspecific. Atherosclerosis. No drainable fluid collection or abscess is seen. No soft tissue gas is seen. No destructive osseous lesion. There is asymmetry in the psoas muscles, left significantly larger than right and likely due to chronic degenerative change. Procedure Note Dick Parry MD - 08/06/2024 [facility] [address] [place] [id number] EXAMINATION: CT Pelvis without contrast, CT lumbar spine withoutcontrast [id number] EXAM DATE/TIME: 08/06/2024 8:15 PM CLINICAL HISTORY: Left hip and lower back pain COMPARISON: CT abdomen pelvis 08/26/2022 TECHNIQUE: Axial CT images of the pelvis and lumbar spine are obtainedwithout the use of IV contrast agent. Subsequent coronal and sagittalreformatted sequences are created for evaluation. A dose loweringtechnique was used for this procedure, which may include, but is notlimited to, dose reduction technique, automated exposure control,iterative reconstruction, ALARA (As Low As Reasonably Achievable), orImage Gently techniques. FINDINGS: No acute fracture or traumatic subluxation in the pelvis or lumbarspine. 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 There is 6-7 mm of anterolisthesis of L4 on L5 similar to prior CT abdomenpelvis 08/26/2022. Otherwise, vertebral body height and alignment arepreserved in the lumbar spine. Multilevel degenerative changes in thelumbar spine. Small amount of free fluid is seen in the lower abdomen/pelvis. Diffusesoft tissue anasarca. Small amount of air is seen in the anterior urinarybladder. Small ventral abdominal wall hernias are seen, with mild amountof fluid within the left of midline ventral hernia. Cholecystectomy.Colonic diverticulosis. Bilateral perinephric stranding, nonspecific. Atherosclerosis. No drainable fluid collection or abscess is seen. No soft tissue gas isseen. No destructive osseous lesion. There is asymmetry in the psoas muscles, left significantly larger thanright and likely due to chronic degenerative change. IMPRESSION: 1. No acute fracture or traumatic subluxation in the lumbar spine orpelvis. 2. Multilevel degenerative changes in the lumbar spine. 3. L4 on L5 anterolisthesis, measuring 6-7 mm similar to 08/26/2022. 4. Small amount of nonspecific free fluid in the lower abdomen/pelvis. 5. Diffuse soft tissue anasarca. 6. Small amount of air in the anterior urinary bladder. Correlation withrecent instrumentation is recommended. Cystitis is less likely. 7. Additional findings as above. Referred By: Interpreted By: Dick Parry MD, 08/06/2024 8:41 PM Ketan Aguilera MD CT Final Result * CT LUMB SPINE WO CON (08/06/2024 8:28 PM CDT) Anatomical Region Laterality Modality Spine Computed Tomogra phy 08/06/2024 8:41 PM CDT Impressions 08/06/2024 8:51 PM CDT IMPRESSION: 1. No acute fracture or traumatic subluxation in the lumbar spine or pelvis. 2. Multilevel degenerative changes in the lumbar spine. 3. L4 on L5 anterolisthesis, measuring 6-7 mm similar to 08/26/2022. 4. Small amount of nonspecific free fluid in the lower abdomen/pelvis. 5. Diffuse soft tissue anasarca. 6. Small amount of air in the anterior urinary bladder. Correlation with recent instrumentation is recommended. Cystitis is less likely. 7. Additional findings as above. Referred By: Interpreted By: Dick Parry MD, 08/06/2024 8:41 PM Narrative 08/06/2024 8:51 PM CDT [facility] [address] [facility] [place] [address] EXAMINATION: CT Pelvis without contrast, CT lumbar spine without contrast [id number] EXAM DATE/TIME: 08/06/2024 8:15 PM CLINICAL HISTORY: Left hip and lower back pain COMPARISON: CT abdomen pelvis 08/26/2022 TECHNIQUE: Axial CT images of the pelvis and lumbar spine are obtained without the use of IV contrast agent. Subsequent coronal and sagittal reformatted sequences are created for evaluation. A dose lowering technique was used for this procedure, which may include, but is not limited to, dose reduction technique, automated exposure control, iterative reconstruction, ALARA (As Low As Reasonably Achievable), or Image Gently techniques. FINDINGS: No acute fracture or traumatic subluxation in the pelvis or lumbar spine. 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 There is 6-7 mm of anterolisthesis of L4 on L5 similar to prior CT abdomen pelvis 08/26/2022. Otherwise, vertebral body height and alignment are preserved in the lumbar spine. Multilevel degenerative changes in the lumbar spine. Small amount of free fluid is seen in the lower abdomen/pelvis. Diffuse soft tissue anasarca. Small amount of air is seen in the anterior urinary bladder. Small ventral abdominal wall hernias are seen, with mild amount of fluid within the left of midline ventral hernia. Cholecystectomy. Colonic diverticulosis. Bilateral perinephric stranding, nonspecific. Atherosclerosis. No drainable fluid collection or abscess is seen. No soft tissue gas is seen. No destructive osseous lesion. There is asymmetry in the psoas muscles, left significantly larger than right and likely due to chronic degenerative change. Procedure Note Dick Parry MD - 08/06/2024 [facility] [address] [place] [address] EXAMINATION: CT Pelvis without contrast, CT lumbar spine withoutcontrast [id number] EXAM DATE/TIME: 08/06/2024 8:15 PM CLINICAL HISTORY: Left hip and lower back pain COMPARISON: CT abdomen pelvis 08/26/2022 TECHNIQUE: Axial CT images of the pelvis and lumbar spine are obtainedwithout the use of IV contrast agent. Subsequent coronal and sagittalreformatted sequences are created for evaluation. A dose loweringtechnique was used for this procedure, which may include, but is notlimited to, dose reduction technique, automated exposure control,iterative reconstruction, ALARA (As Low As Reasonably Achievable), orImage Gently techniques. FINDINGS: No acute fracture or traumatic subluxation in the pelvis or lumbarspine. 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 There is 6-7 mm of anterolisthesis of L4 on L5 similar to prior CT abdomenpelvis 08/26/2022. Otherwise, vertebral body height and alignment arepreserved in the lumbar spine. Multilevel degenerative changes in thelumbar spine. Small amount of free fluid is seen in the lower abdomen/pelvis. Diffusesoft tissue anasarca. Small amount of air is seen in the anterior urinarybladder. Small ventral abdominal wall hernias are seen, with mild amountof fluid within the left of midline ventral hernia. Cholecystectomy.Colonic diverticulosis. Bilateral perinephric stranding, nonspecific. Atherosclerosis. No drainable fluid collection or abscess is seen. No soft tissue gas isseen. No destructive osseous lesion. There is asymmetry in the psoas muscles, left significantly larger thanright and likely due to chronic degenerative change. IMPRESSION: 1. No acute fracture or traumatic subluxation in the lumbar spine orpelvis. 2. Multilevel degenerative changes in the lumbar spine. 3. L4 on L5 anterolisthesis, measuring 6-7 mm similar to 08/26/2022. 4. Small amount of nonspecific free fluid in the lower abdomen/pelvis. 5. Diffuse soft tissue anasarca. 6. Small amount of air in the anterior urinary bladder. Correlation withrecent instrumentation is recommended. Cystitis is less likely. 7. Additional findings as above. Referred By: Interpreted By: Dick Parry MD, 08/06/2024 8:41 PM us Ketan Aguilera MD CT Final Result * (ABNORMAL) PRO-BRAIN NATRIURETIC PEPTIDE (08/06/2024 8:16 PM CDT) PRO-B TYPE NATRIURETIC PEPTIDE 4,742(H) <450 PG/ML 08/06/2024 9:55 PM CDT [facility] Comment: CUT POINTS ESTABLISHED BY [employer] ON NT PROBNP (ICON) STUDY (2006). AGE INDEPENDENT: <300 PG/ML HAS A 99% NEGATIVE PREDICTIVE VALUE FOR EXCLUDING ACUTE CHF <50 YEARS: >450 PG/ML IS CONSISTENT WITH ACUTE CHF 50-75 YEARS: >900 PG/ML IS CONSISTENT WITH ACUTE CHF >75 YEARS: >1800 PG/ML IS CONSISTENT WITH ACUTE CHF IN PATIENTS WITH RENAL INSUFFICIENCY (GFR <60), >1200 PG/ML YIELDS A DIAGNOSTIC SENSITIVITY AND SPECIFICITY OF 89% AND 72% FOR ACUTE CHF. 08/06/2024 8:16 PM CDT us Ketan Aguilera MD LABORATORY Final Result [facility] [facility] [address] [place] [address], [place] [phone] * (ABNORMAL) SED RATE, ERYTHROCYTE (ESR) (08/06/2024 8:16 PM CDT) ESR 46(H) <30 MM/HR 08/06/2024 9:1 4 PM CDT [facility] 08/06/2024 8:16 PM CDT Ketan Aguilera MD LABORATORY Final Result [facility] [address] [place] [address], * (ABNORMAL) COMPREHENSIVE METABOLIC PANEL (08/06/2024 8:16 PM CDT) GLUCOSE 119(H) 70 - 99 MG/DL 08/06/2024 8:52 PM CDT [facility] BUN 74(H) 7 - 18 MG/DL 08/06/2024 8:52 PM CDT [facility] CREATININE S/P/B 2.26(H) 0.55 - 1.02 MG/DL 08/06/2024 8:52 PM CDT [facility] SODIUM S/P/B 130(L) 136 - 145 MMOL/L 08/06/2024 8:52 PM CDT [facility] POTASSIUM S/P/B 4.8 3.5 - 5.1 MMOL/L 08/06/2024 8:52 PM CDT [facility] CHLORIDE S/P/B 98(L) 100 - 108 MMOL/L 08/06/2024 8:52 PM CDT [facility] CO2 20.7(L) 21 - 32 MMOL/L 08/06/2024 8:52 PM CDT [facility] CALCIUM S/P/B 8.5 8.5 - 10.1 MG/DL 08/06/2024 8:52 PM CDT [facility] BILIRUBIN TOTAL S/P/B 0.4 0.2 - 1.2 MG/DL 08/06/2024 8:52 PM CDT [facility] TOTAL PROTEIN S/P/B 7.5 6.4 - 8.2 G/DL 08/06/2024 8:52 PM T [facility] ALBUMIN S/P/B 3.5 3.4 - 5.0 G/DL 08/06/2024 8:52 PM CDT [facility] AST 22 15 - 37 U/L 08/06/2024 8:52 PM T [facility] ALT 17 14 - 55 U/L 08/06/2024 8:52 PM T [facility] ALKALINE PHOSPHATASE S/P/B 48(L) 50 - 136 U/L 08/06/2024 8:52 PM T [facility] ANION GAP 11.3 5 - 15 MMOL/L 08/06/2024 8:52 PM T [facility] BUN CREATININE RATIO 32.7(H) 6 - 26 08/06/2024 8:52 PM [facility] A/G RATIO 0.9(L) 1.0 - 2.0 RATIO 08/06/2024 8:52 PM [facility] GFR ESTIMATE 20(L) >90 ML/MIN/1.7 3 M2 08/06/2024 8:52 PM T [facility] Comment: NOTE: eGFR is not calculated for patients <18 years of age. This is an estimated GFR calculation using the new CKD EPI creatinine equation without race and so does not require a correction factor for race. This estimated GFR should not be used for calculating drug doses. 08/06/2024 8:16 PM CDT Ketan Aguilera MD LABORATORY Final Result [facility] [address] [place] [address], [place] [phone] * XR PELVIS 1 OR 2 VIEWS (08/06/2024 8:14 PM CDT) Anatomical Region Laterality Modality Pelvis Radiographic Judy ging 08/06/2024 8:35 PM CDT Impressions 08/06/2024 8:40 PM CDT IMPRESSION: 1. No acute osseous abnormalities in the pelvis or lumbar spine. 2. Anterolisthesis of L4 on L5, measuring [address] 08/26/2022. Referred By: Interpreted By: Dick Parry MD, 08/06/2024 8:35 PM Narrative 08/06/2024 8:40 PM CDT [facility] [address] [place] [address] Examination: Pelvis AP view, lumbar spine 3 views [id number] Exam Date/Time: 08/06/2024 8:14 PM Reason For Exam: left sacroiliac pain Left hip and lower back pain Comparison: CT abdomen pelvis 08/26/2022 Technique: Single AP view of the pelvis and 3 views of the lumbar spine were obtained. 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 No acute fracture or dislocation. No destructive osseous lytic or sclerotic lesions. Lumbar spine: No acute fracture or traumatic subluxation. 7 mm anterolisthesis of L4 on L5. Vertebral body height and alignment are otherwise preserved. Multilevel degenerative changes. No destructive osseous lesion. Atherosclerotic calcifications. Procedure Note Dick Parry MD - 08/06/2024 [facility] [address] [place] [address] Examination: Pelvis AP view, lumbar spine 3 views [id number] Exam Date/Time: 08/06/2024 8:14 PM Reason For Exam: left sacroiliac pain Left hip and lower back pain Comparison: CT abdomen pelvis 08/26/2022 Technique: Single AP view of the pelvis and 3 views of the lumbar spinewere obtained. 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 Noacute fracture or dislocation. No destructive osseous lytic or scleroticlesions. Lumbar spine: No acute fracture or traumatic subluxation. 7 mm anterolisthesis of L4 onL5. Vertebral body height and alignment are otherwise preserved.Multilevel degenerative changes. No destructive osseous lesion.Atherosclerotic calcifications. IMPRESSION: 1. No acute osseous abnormalities in the pelvis or lumbar spine. 2. Anterolisthesis of L4 on L5, measuring [address] 08/26/2022. Referred By: Interpreted By: Dick Parry MD, 08/06/2024 8:35 PM Ketan Aguilera MD GENERAL IMAGING Final Result * XR LUMB SPINE 3V (08/06/2024 8:14 PM CDT) Anatomical Region Laterality Modality Spine Radiographic Judy ging 08/06/2024 8:35 PM CDT Impressions 08/06/2024 8:40 PM CDT IMPRESSION: 1. No acute osseous abnormalities in the pelvis or lumbar spine. 2. Anterolisthesis of L4 on L5, measuring [address] 08/26/2022. Referred By: Interpreted By: Dick Parry MD, 08/06/2024 8:35 PM Narrative 08/06/2024 8:40 PM CDT [facility] [address] [facility] [place] [address] Examination: Pelvis AP view, lumbar spine 3 views [id number] Exam Date/Time: 08/06/2024 8:14 PM Reason For Exam: left sacroiliac pain Left hip and lower back pain Comparison: CT abdomen pelvis 08/26/2022 Technique: Single AP view of the pelvis and 3 views of the lumbar spine were obtained. 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 No acute fracture or dislocation. No destructive osseous lytic or sclerotic lesions. Lumbar spine: No acute fracture or traumatic subluxation. 7 mm anterolisthesis of L4 on L5. Vertebral body height and alignment are otherwise preserved. Multilevel degenerative changes. No destructive osseous lesion. Atherosclerotic calcifications. Procedure Note Dick Parry MD - 08/06/2024 [facility] [address] [place] [address] Examination: Pelvis AP view, lumbar spine 3 views [id number] Exam Date/Time: 08/06/2024 8:14 PM Reason For Exam: left sacroiliac pain Left hip and lower back pain Comparison: CT abdomen pelvis 08/26/2022 Technique: Single AP view of the pelvis and 3 views of the lumbar spinewere obtained. 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 Noacute fracture or dislocation. No destructive osseous lytic or scleroticlesions. Lumbar spine: No acute fracture or traumatic subluxation. 7 mm anterolisthesis of L4 onL5. Vertebral body height and alignment are otherwise preserved.Multilevel degenerative changes. No destructive osseous lesion.Atherosclerotic calcifications. IMPRESSION: 1. No acute osseous abnormalities in the pelvis or lumbar spine. 2. Anterolisthesis of L4 on L5, measuring [address] 08/26/2022. 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 Advance Directives and Livin g Will 08/28/2022 9:22 AM 06/18/11 [facility] * Full Code (Latest Code Status on File) Date Activated Date Inactivated Comments 08/15/2024 2:20 PM * Full Code Date Activated Date Inactivated Comments 08/08/2024 5:43 PM 08/10/2024 3:23 PM * Full Code Date Activated Date Inactivated Comments 02/04/2023 10:17 AM 02/06/2023 4:09 PM * Full Code Date Activated Date Inactivated Comments 08/26/2022 4:05 PM 08/30/2022 3:50 PM Care Teams Speech Language Pathology Assistant Relationship Specialty Start Date End Date Eliu Vicente MD [address] [place] [address] PCP - General FAMILY PRACTICE 09/17/21
--- OUTSIDE RECORDS SUMMARY | 2024-08-31 15:10 | XMS_ITS | Clinical Summary ---
Author Organization [facility] Address [address] [place] [phone] Phone Care Team Providers Care Treasury Consultant Name Role Phone Eliu Vicente MD Primary Care Provider [phone] Allergies Active Allergy Reactions Criticality Noted Date [...] (07/09/2021): Added automatically from request for surgery [id number] Patient encounter status 11/05/2017 Lateral epicondylitis of [...] Comments Blood Pressure 136/78 01/14/2022 9:44 AM QA TEST LEAD Pulse - - Temperature 35.9 C (96.6 F) 01/14/2022 9:44 AM QA TEST LEAD Respiratory Rate 18 01/14/2022 9:44 AM QA TEST LEAD Oxygen Saturation - - Inhaled Oxygen Concentration - - Weight 90.7 kg (200 lb) 01/14/2022 9:44 AM QA TEST LEAD Height 160 cm (5' 3) 01/14/2022 9:44 AM QA TEST LEAD Body Mass Index 35.43 01/14/2022 9:44 AM QA TEST LEAD Plan of Treatment Health Maintenance Due Date Last Done Comments Pneumococcal PPSV23/PCV13 65 + Years / Low and Medium Risk (1 of 2 - PCV) 07/04/1985 COVID-19 Vaccine ( season) 10/31/202306/2020, 04/05/2020 Influenza Vaccine (Season Ended) 2024 11/30/19 19 Insurance MEDICARE GENERIC COMMERCIAL Care Teams Treasury Consultant Relationship Specialty Start Date End Date Eliu Vicente MD [address] [place], [place] [id number] PCP - General Internal Medicine 06/23/21
== END 2024-08-31 15:07 | disposition home or self-care (01) ==
LOC: CHSLAB 15:08
PROVIDERS: PCP Family Medicine; Visit Provider Family Medicine
DX: N39.0 Urinary tract infection, site not specified (principal)
CPT/HCPCS: 87086

== ENCOUNTER 2024-09-05 11:31 | Outpatient (CLI) | payer MEDICARE, SELFPAY ==
--- OUTSIDE RECORDS SUMMARY | 2024-09-05 11:35 | XMS_ITS | Clinical Summary ---
Author Organization [facility] Address [facility] [place] [address] Care Team Providers Care Manager Ct Name Role Phone Eliu Vicente MD Primary Care Provider [phone] Allergies Active Allergy Reactions Criticality Noted Date [...] Pain. Indications: Pain 08/16/19 25 Active multi vitamin/facility examiner als (THERA-M ENHANCED) tabletIndicat ions:Vitamin Deficiency [...] injury) 08/08/2024 Acute CHF (congestive heart failure) ([facility] HH S/HCC) 02/03/2023 Essential hypertension 01/07/2023 Overview [...] with repeat lower extremity arterial Doppler in [place]. E-coli UTI 08/29/2022 Sepsis due to Escherichia co li without acute organ dysfunction ([facility]) 08/29/2022 Pyelonephritis 08/26/2022 Encounters Date Type Department Care Team Description 09/04/2024 7:30 AM CDT Home Care Visit [facility] Home [address] [address] Juan Vora, STOCK DEALER STOCK DEALER HOME VISIT 08/31/2024 10:15 AM CDT Home Care Visit [address] [address] Juan Vora, STOCK DEALER STOCK DEALER HOME VISIT 08/30/2024 2:56 PM CDT - 08/30/2024 11:59 PM CDT Hospital Encounter [facility] [address] [place] [address] Eliu Vicente MD Discharge Disposition: Home or Self Care (Routine Discharge) 08/30/2024 10:00 AM CDT Home Care Visit [address] [address] María Adler LPN SN HOME VISIT 08/30/2024 Orders Only [facility] [address] [place] [address] Eliu Vicente MD 08/29/2024 11:00 AM CDT Home Care Visit [address] [address] Juan Vora, STOCK DEALER STOCK DEALER HOME VISIT 08/29/2024 8:45 AM CDT Home Care Visit [address] [address] Dawson Daniels, OT OT DISCIPLINE DISCHARGE 08/24/2024 1:45 PM CDT Home Care Visit [address] [address] Juan Vora, STOCK DEALER STOCK DEALER HOME VISIT 08/24/2024 11:15 AM CDT Home Care Visit [facility] [address] [place] [address] Fátima Hendrickson, PRE SALES NETWORK ENGINEER YUAN HOME VISIT 08/22/2024 2:00 PM CDT Home Care Visit [facility] Care [address] [address] Jemima Schreiber, TAMI YUAN HOME VISIT 08/22/2024 10:15 AM CDT Home Care Visit [facility] Home [address] [address] Diane Gaitan LPN SN HOME VISIT 08/21/2024 10:30 AM CDT Home Care Visit [facility] Care [address] [address] Laura Black, PT PT INITIAL EVALUATION 08/17/2024 10:30 AM CDT Home Care Visit [address] [address] Dawson Daniels, OT OT INITIAL EVALUATION 08/17/2024 Home Care Visit [address] [address] Laura Black, PT CASE COMMUNICATION 08/15/2024 3:42 PM CDT - 08/15/2024 11:59 PM CDT Hospital Encounter [facility] [address] [place] [address] Nadia Craft, APNP Discharge Disposition: Home or Self Care (Routine Discharge) 08/15/2024 1:00 PM CDT Home Care Visit [address] [address] Darlin Sharif, RN SN OASIS START OF CARE 08/15/2024 Plan of Care Documentation [address] [place] [address] 08/08/2024 1:41 PM CDT - 08/10/2024 1:00 PM CDT Hospital Encounter [facility]/Surg [address] [place] [address] Raudel Tapia MD Suresh, MD Amaya Gibson, Nadia Villalta, PRINCE Fall Discharge Disposition: Home or Self Care (Routine Discharge) 08/08/2024 Travel 08/06/2024 7:16 PM CDT - 08/06/2024 10:10 PM CDT Emergency [facility] Emergency Room [address] [place] [address] Ketan Aguilera MD Hip Pain Discharge Disposition: [...] materials from doctor or pharmacy Never 08/15/2024 C Utilities Answer Date Recorded In the past [...] week 08/26/2022 How often do you attend [facility] or nondenominational services? More than 4 times per year 08/26/2022 Do you belong to any clubs o r organizations such as faith groups, unions, fraternal or athletic groups, or [...] Recorded Patient Health Questionnaire-2 Score 0 08/26/2022 [facility] [place] of Occupat ional Health - Occupational Stress [...] place to sleep or slept in a senior care (including now)? No 02/04/2023 Housing Stability Vital Sign Answer Papo e Recorded In the last 12 months, was t here a time when you were not able to pay the mortgage or rent on time? No 08/08/2024 In the past 12 months, how m any times have you moved where you were living? 0 08/08/2024 At any time in the past 12 m [facility], were you homeless or living in a senior care (including now)? 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 ADVISER Legal Sex Female 11:51 PM CDT Gender Identity Female 08/06/2024 7:26 PM CDT Sexual Orientation Straight 08/06/2024 7: 26 PM CDT Last Filed Vital Signs Vital Sign Reading Time Taken Comments Blood Pressure 138/70 09/04/2024 7:41 AM CDT Pulse 59 09/04/2024 7:41 AM CDT Temperature 36.5 C (97.7 F) 09/04/2024 7:41 AM CDT Respiratory Rate 18 09/04/2024 7:41 AM CDT Oxygen Saturation 94% 09/04/2024 7:41 AM CDT Inhaled Oxygen Concentration - - Weight 78.5 kg (173 lb) 08/30/2024 10:29 AM CDT Height 160 cm (5' 3) 08/08/2024 6:44 PM CDT Body Mass Index 30.65 08/08/2024 6:44 PM CDT Plan of Treatment Upcoming Encounters Date Type Department Care Team (Late st Contact Info) Description 09/06/2024 9:00 AM CDT Appointment [facility] Home Care [address] [place] [address] [place] [address] Laura Black, PT [address] [place] [address] 09/06/2024 10:30 AM CDT Home Care Visit [address] [place] [address] [place] [address] Augustina Maurice, RN [phone] (Work) 09/18/2024 9:30 AM CDT [facility] [id number] [place] [phone] Jhonny Reese MD [address] [address] Health Maintenance Due Date Last Done Comments Zoster Vaccines (1 of 2) 07/04/1985 Annual Medicare Wellness Visit 07/04/2000 RSV Immunization or 60+ Years (1 - 1-dose 75+ series) 07/04/2010 COVID-19 Vaccine (3 - 2023-2 5 season) 2023 [...] transitions and discharge planning 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 Procedure Name Priority Date/Time Associated Diagnosis Comments [...] COLOR (U) YELLOW 08/30/2024 4:14 PM CDT [facility] TRANSPARENCY CLEAR 08/30/2024 4:14 PM CDT [facility] SPECIFIC GRAVITY (U) 1.010 1.002 - 1.030 08/30/2024 4:14 PM CDT [facility] U PH 6.5 4.5 - 8.0 08/30/2024 4:14 PM CDT [facility] LEUKOCYTES (U) 3+(A) NEGATIVE 08/30/2024 4:14 PM CDT [facility] NITRITES NEGATIVE NEGATIVE 08/30/2024 4:14 PM CDT [facility] PROTEIN RANDOM (U) 1+(A) NEGATIVE 08/30/2024 4:14 PM CDT [facility] GLUCOSE (U) NEGATIVE NEGATIVE 08/30/2024 4:14 PM CDT [facility] KETONES MG/DL (U) NEGATIVE NEGATIVE 08/30/2024 4:14 PM CDT [facility] UROBILINOGEN NORMAL NORMAL EU/DL 08/30/2024 4:14 PM CDT [facility] BILIRUBIN (U) NEGATIVE NEGATIVE 08/30/2024 4:14 PM CDT [facility] BLOOD (U) 1+(A) NEGATIVE 08/30/2024 4:14 PM CDT [facility] WBC/HPF 5-10 /HPF 08/30/2024 4:14 PM CDT [facility] RBC/HPF 0-2 /HPF 08/30/2024 4:14 PM CDT [facility] EPI/HPF 0-5 /HPF 08/30/2024 4:14 PM CDT [facility] BACTERIA (U) 3+ /HPF 08/30/2024 4:14 PM CDT [facility] URINE SPECIMEN / Unknown 08/30/2024 11:30 AM CDT Eliu Vicente MD URINE ORDERABLES Final Result [facility] [address] [place] [address], [place] [phone] * URINE BACTERIA CULTURE (08/30/2024 11:30 AM CDT) Only the most recent of2 resultswithin the time period is included. SPEC DESCRIPTION URINE, UNSPECIFIED 08/30/2024 2:58 PM CDT [facility] SPECIAL REQUESTS NO SPECIAL REQUEST 08/30/2024 2:58 PM CDT [facility] CULTURE RESULT MULTIPLE ORGANISMS PRESENT, PROBABLE CONTAMINATION. SUGGEST REPEAT CULTURE. 08/31/2024 11:49 AM CDT [facility] URINE SPECIMEN / Unknown 08/30/2024 11:30 AM CDT 08/30/2024 2:59 PM CDT Eliu Vicente MD MICROBIOLOGY - GENERAL ORDERA BLES Final Result [facility] [address] [place] [address], [place] [phone] [facility] [address] [place] [address], [place] [phone] * (ABNORMAL) BASIC METABOLIC PANEL (08/15/2024 2:50 PM CDT) Only the most recent of5 resultswithin the time period is included. SODIUM S/P/B 139 136 - 145 MMOL/L 08/15/2024 4:09 PM CDT [facility] POTASSIUM S/P/B 4.2 3.5 - 5.1 MMOL/L 08/15/2024 4:09 PM CDT [facility] CHLORIDE S/P/B 104 98 - 107 MMOL/L 08/15/2024 4:09 PM CDT [facility] CO2 25.2 21.0 - 32.0 MMOL/L 08/15/2024 4:09 PM CDT [facility] GLUCOSE 114(H) 70 - 99 MG/DL 08/15/2024 4:09 PM CDT [facility] Comment: FASTING GLUCOSE 100 TO 125 MG/DL IS CONSISTENT WITH IMPAIRED FASTING GLUCOSE. FASTING GLUCOSE >125 MG/DL IS CONSISTENT WITH DIABETES. RANDOM GLUCOSE >200 MG/DL WITH HYPERGLYCEMIC SYMPTOMS IS CONSISTENT WITH DIABETES. PER ADA GUIDELINES BUN 46(H) 6 - 24 MG/DL 08/15/2024 4:09 PM CDT [facility] CREATININE S/P/B 1.70(H) 0.55 - 1.02 MG/DL 08/15/2024 4:09 PM CDT [facility] CALCIUM S/P/B 8.9 8.4 - 10.5 MG/DL 08/15/2024 4:09 PM CDT [facility] ANION GAP 9.8 5.0 - 15.0 MMOL/L 08/15/2024 4:09 PM CDT [facility] OSMOLALITY (CALC) 301 MOSM/KG 025 4:09 PM CDT [facility] Comment:REFERENCE RANGE NOT ESTABLISHED GFR ESTIMATE 28(L) >89 ML/MIN/1. 73 M2 08/15/2024 4:09 PM CDT [facility] GFR NOTES GFR REFERENCE S: 08/15/2024 4:09 PM CDT [facility] Comment: THE ESTIMATED GFR IS [...] <15 ml/min/1.73 m2 08/15/2024 2:50 PM CDT us Nadia Craft APNP LABORATORY Final Res ult [facility] [address] [place] [address], * (ABNORMAL) CBC W/DIFF AUTOMATED (08/10/2024 5:09 AM CDT) Only the most recent of4 resultswithin the time period is included. WBC 10.70 4.4 - 11.0 x10'3/uL 08/10/2024 6:14 AM CDT [facility] RBC 2.98(L) 4.50 - 5.10 x10'6/uL 08/10/2024 6:14 AM CDT [facility] HGB 9.4(L) 12.3 - 15.3 G/DL 08/10/2024 6:14 AM CDT [facility] HCT 28.8(L) 35.9 - 44.6 % 08/10/2024 6:14 AM CDT [facility] MCV 96.6(H) 80.0 - 96.0 FL 08/10/2024 6:14 AM CDT [facility] MCH 31.5(H) 25.3 - 30.9 PG 08/10/2024 6:14 AM CDT [facility] MCHC 32.6 31.0 - 34.1 G/DL 08/10/2024 6:14 AM T [facility] RDW 13.1 12.4 - 15.1 % 08/10/2024 6:14 AM CDT [facility] PLT 219 151 - 353 x10'3/uL 08/10/2024 6:14 AM T [facility] MPV 10.7 9.6 - 12.0 FL 08/10/2024 6:14 AM T [facility] RBC MORPHOLOGY NORMAL 08/10/2024 6:14 AM T [facility] PLT MORPH. NORMAL 08/10/2024 6:14 AM CDT [facility] WBC MORPHOLOGY NORMAL 08/10/2024 6:14 AM T [facility] LYMPHOCYTES % 19.3 15.8 - 45.0 % 08/10/2024 6:14 AM CDT [facility] NEUTROPHILS % 65.5 42.1 - 71.9 % 08/10/2024 6:14 AM CDT [facility] MONOCYTES % 13.7(H) 5.7 - 12.5 % 08/10/2024 6:14 AM CDT [facility] EOSINOPHILS 0.1 0.0 - 5.6 % 08/10/2024 6:14 AM CDT [facility] BASOPHILS 0.1 0.0 - 1.3 % 08/10/2024 6:14 AM CDT [facility] ABS. NEUTROPHILS 7.01(H) 1.40 - 6.00 x10'3/uL 08/10/2024 6:14 AM CDT [facility] IMMATURE GRANS % 1.3(H) 0.0 - 0.5 % 08/10/2024 6:14 AM CDT [facility] ABS. LYMPHOCYTES 2.06 0.80 - 4.70 x10'3/uL 08/10/2024 6:14 AM CDT [facility] 08/10/2024 5:09 AM CDT Nadia Craft APNP LABORATORY Final Res ult [facility] [address] [place] [address], [place] [phone] * US RETROPERITONEAL LTD (08/09/2024 2:50 PM CDT) Anatomical Region Laterality Modality Renal Ultrasound 08/09/2024 3:19 PM CDT Impressions 08/09/2024 3:21 PM CDT IMPRESSION: No hydronephrosis.. No focal renal mass Ordered By: NADIA CRAFT Interpreted By: Marilou Rooney, 08/09/2024 3:19 PM Narrative 08/09/2024 3:21 PM CDT [facility] [address] [place] [address] IMAGING STUDIES: US RETROPERITONEAL LTD DATE: 08/09/2024 [...] Procedure Note Santy Rooney MD - 08/09/2024 [facility] [address] [place] [address] IMAGING STUDIES: US RETROPERITONEAL LTD DATE: 08/09/2024 [...] By: Marilou Rooney, 08/09/2024 3:19 PM Nadia Craft APNP ULTRASOUND Final Res ult * TSH W/REFLEX (08/09/2024 12:50 PM CDT) TSH 0.752 0.358 - 3.74 uIU/ML 08/09/2024 1:53 PM CDT [facility] ([facility] Comment: HIGH DOSES OF BIOTIN MAY INTERFERE WITH THIS TEST RESULT. CORRELATION TO CLINICAL HISTORY AND PRESENTATION RECOMMENDED. FREE T4 NOT INDICATED 08/09/2024 12:5 0 PM CDT us Nadia Villalta Amaya MORRISON LABORATORY Final Res ult [facility] [address] [place] [address], [place] [phone] * URINALYSIS MICRO ONLY (08/09/2024 10:10 AM CDT) WBC/HPF 5-10 0 - 5 /HPF 08/09/2024 10:50 AM CDT [facility] RBC/HPF NONE SEEN 0 - 5 /HPF 08/09/2024 10:50 AM CDT [facility] EPI/HPF FEW /HPF 08/09/2024 10:50 AM CDT [facility] BACTERIA (U) MODERATE /HPF 08/09/2024 10:50 AM CDT [facility] 08/09/2024 10:1 0 AM CDT Nadia Villalta Amaya MORRISON URINE ORDERABLES Final Re sult Performing Organization Address [facility]/ZIP Co de Phone Number [facility] [address] [place] [address], [place] [phone] * VITAMIN B12 / FOLATE (08/09/2024 5:18 AM CDT) VITAMIN B12 S/P/B 459 193 - 986 PG/ML 08/09/2024 9:52 AM CDT [facility] FOLATE >20.0 8.6 - 58.9 NG/ML 08/09/2024 9:52 AM CDT [facility] 08/09/2024 5:18 AM CDT us Zuniga Pawan [facility] LABORATORY Final Res ult [facility] [address] [place] [address], [place] [phone] * IRON SAT PANEL (IRON,IBC,%SAT) (08/09/2024 5:18 AM CDT) Pathologist [facility] IRON 67 50 - 170 MCG/DL 08/09/2024 9:56 AM CDT [facility] IRON BINDING CAPACITY 302 250 - 450 MCG/DL 08/09/2024 9:56 AM CDT [facility] IRON SATURATION 22 20 - 55 % 9:56 AM CDT [facility] 08/09/2024 5:18 AM CDT Nadia Craft APNP LABORATORY Final Res ult [facility] [address] [place] [address], [place] [phone] * (ABNORMAL) HEPATIC FUNCTION PANEL (08/09/2024 5:18 AM CDT) [facility] TOTAL PROTEIN S/P/B 6.9 6.4 - 8.2 G/DL 08/09/2024 9:24 AM CDT [facility] ALBUMIN S/P/B 3.2(L) 3.4 - 5.0 G/DL 08/09/2024 9:24 AM CDT [facility] BILIRUBIN TOTAL S/P/B 0.6 0.2 - 1.2 MG/DL 08/09/2024 9:24 AM CDT [facility] BILIRUBIN DIRECT S/P/B 0.2 0.0 - 0.20 MG/DL 08/09/2024 9:24 AM CDT [facility] BILIRUBIN INDIRECT S/P/B 0.4 0.0 - 0.9 MG/DL 08/09/2024 9:24 AM CDT [facility] ALKALINE PHOSPHATASE S/P/B 39(L) 50 - 136 U/L 08/09/2024 9:24 AM CDT [facility] AST 33 15 - 37 U/L 08/09/2024 9:24 AM CDT [facility] ALT 22 14 - 55 U/L 08/09/2024 9:24 AM CDT [facility] A/G RATIO 0.9(L) 1.0 - 2.0 RATIO 08/09/2024 9:24 AM CDT [facility] 08/09/2024 5:18 AM CDT Nadia MORRISON LABORATORY Final Res ult Performing Organization Address City/[facility]/ZIP Co de Phone Number [facility] [address] [place] [address], [place] [phone] * (ABNORMAL) MAGNESIUM (08/09/2024 5:18 AM CDT) MAGNESIUM 2.6(H) 1.8 - 2.4 MG/DL 08/09/2024 7:14 AM CDT [facility] 08/09/2024 5:18 AM CDT Chikis Leon PA-C LABORATORY Final Result Performing Organization Address [facility]/ZIP Co de Phone Number [facility] [address] [place] [address], [place] [phone] * FERRITIN (08/09/2024 5:18 AM CDT) FERRITIN 169.0 8.0 - 388.0 NG/ML 08/09/2024 9:24 AM CDT [facility] 08/09/2024 5:18 AM CDT us Nadia Craft APNP LABORATORY Final Res ult Performing Organization Address [facility]/ZIP Co de Phone Number [facility] [address] [place] [address], [place] [phone] * TROPONIN, QUANT (08/08/2024 3:24 PM CDT) TROPONIN I HIGH SENSITIVITY 23 0 - 50 ng/L 08/08/2024 3:58 PM CDT [facility] Comment: HIGH DOSES OF BIOTIN, TROPONIN-SPECIFIC AUTOANTIBODIES, AND ANTIBODY THERAPY CONTAINING HAMA MAY INTERFERE WITH THIS TEST RESULT. CORRELATION TO CLINICAL HISTORY AND PRESENTATION RECOMMENDED. 08/08/2024 3:24 PM CDT Raudel Tapia MD LABORATORY Fi nal Result Performing Organization Address [facility] Co de Phone Number [facility] [address] [place] [address], [place] [phone] * XR SHOULDER RT MIN 2V (08/08/2024 3:17 PM CDT) Anatomical Region Laterality Modality Shoulder Radiographic Judy ging 08/08/2024 3:08 PM CDT Impressions 08/08/2024 3:08 PM CDT IMPRESSION: 1) Chronic degenerative osteoarthritis. No evidence of acute fracture or dislocation. Ordered By: RAUDEL TAPIA Interpreted By: Quintin Smallwood MD, 08/08/2024 3:08 PM Narrative 08/08/2024 3:08 PM CDT [facility] [address] [facility] [place] [address] Examination: XR SHOULDER RT MIN 2V Exam [...] Procedure Note Quintin Smallwood MD - 08/08/2024 [facility] [address] [place] [address] Examination: XR SHOULDER RT MIN 2V Exam [...] 3:08 PM Narrative 08/08/2024 3:09 PM CDT [facility] [address] [place] [id number] Examination: XR KNEE RT 3V Exam time: 08/08/2024 2:01 PM Clinical history: Trauma Comparison: None Technique: AP, lateral and sunrise views Findings: No acute soft tissue abnormality. No gross joint effusion. Total right knee prosthesis. No evidence of complication involving the hardware. No evidence of acute fracture. Procedure Note Quintin Smallwood MD - 08/08/2024 [facility] [address] [place] [id number] Examination: XR KNEE RT 3V Exam time: [...] 2:55 PM Narrative 08/08/2024 2:57 PM CDT [facility] [address] [place] [id number] Examination: CT CERV SPINE WO CON, CT [...] Procedure Note Julito Guillen MD - 08/08/2024 [facility] [address] [facility]. [place] [id number] Examination: CT CERV SPINE WO CON, CT [...] 2:55 PM Narrative 08/08/2024 2:57 PM CDT [facility] [address] [place] [address] Examination: CT CERV SPINE WO CON, CT [...] Procedure Note Julito Guillen MD - 08/08/2024 [facility] [address] [facility]. 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 [address] EXAMINATION: CT Pelvis without contrast, CT lumbar spine without contrast [id number] EXAM DATE/TIME: 08/06/2024 8:15 PM CLINICAL HISTORY: [...] Procedure Note Dick Parry MD - 08/06/2024 [facility] [address] [place] [address] EXAMINATION: CT Pelvis without contrast, CT lumbar spine withoutcontrast [id number] EXAM DATE/TIME: 08/06/2024 8:15 PM CLINICAL HISTORY: [...] 8:41 PM Narrative 08/06/2024 8:51 PM CDT [place] [id number] [facility] [place] [address] EXAMINATION: CT Pelvis without contrast, CT lumbar spine without contrast [id number] EXAM DATE/TIME: 08/06/2024 8:15 PM CLINICAL HISTORY: [...] Procedure Note Dick Parry MD - 08/06/2024 [facility] [address] [place] [address] EXAMINATION: CT Pelvis without contrast, CT lumbar spine withoutcontrast [id number] EXAM DATE/TIME: 08/06/2024 8:15 PM CLINICAL HISTORY: [...] 4,742(H) <450 PG/ML 08/06/2024 9:55 PM CDT [facility] Comment: CUT POINTS ESTABLISHED BY INTERNATIONAL [...] us Ketan Aguilera MD LABORATORY Final Result [facility] [address] [place] [address], [place] [phone] * (ABNORMAL) SED RATE, ERYTHROCYTE (ESR) (08/06/2024 8:16 PM CDT) ESR 46(H) <30 MM/HR 08/06/2024 9:1 4 PM CDT [facility] 08/06/2024 8:16 PM CDT Ketan Aguilera MD LABORATORY Final Result [facility] [id number] [place] [address], [place] [phone] * (ABNORMAL) COMPREHENSIVE METABOLIC PANEL (08/06/2024 8:16 PM CDT) Pathologist [facility] GLUCOSE 119(H) 70 - 99 MG/DL 08/06/2024 8:52 PM CDT [facility] BUN 74(H) 7 - 18 MG/DL 08/06/2024 8:52 PM CDT [facility] CREATININE S/P/B 2.26(H) 0.55 - 1.02 MG/DL 08/06/2024 8:52 PM CDT [facility] SODIUM S/P/B 130(L) 136 - 145 MMOL/L 08/06/2024 8:52 PM CDT [facility] POTASSIUM S/P/B 4.8 3.5 - 5.1 MMOL/L 08/06/2024 8:52 PM CDT [facility] CHLORIDE S/P/B 98(L) 100 - 108 MMOL/L 08/06/2024 8:52 PM CDT [facility] CO2 20.7(L) 21 - 32 MMOL/L 08/06/2024 8:52 PM CDT [facility] CALCIUM S/P/B 8.5 8.5 - 10.1 MG/DL 08/06/2024 8:52 PM CDT [facility] BILIRUBIN TOTAL S/P/B 0.4 0.2 - 1.2 MG/DL 08/06/2024 8:52 PM T [facility] TOTAL PROTEIN S/P/B 7.5 6.4 - 8.2 G/DL 08/06/2024 8:52 PM T [facility] ALBUMIN S/P/B 3.5 3.4 - 5.0 G/DL 08/06/2024 8:52 PM T [facility] AST 22 15 - 37 U/L 08/06/2024 8:52 PM T [facility] ALT 17 14 - 55 U/L 08/06/2024 8:52 PM T [facility] ALKALINE PHOSPHATASE S/P/B 48(L) 50 - 136 U/L 08/06/2024 8:52 PM T [facility] [facility] ANION GAP 11.3 5 - 15 MMOL/L 08/06/2024 8:52 PM T [facility] BUN CREATININE RATIO 32.7(H) 6 - 26 08/06/2024 8:52 PM [facility] A/G RATIO 0.9(L) 1.0 - 2.0 RATIO 08/06/2024 8:52 PM [facility] GFR ESTIMATE 20(L) >90 ML/MIN/1.7 3 M2 08/06/2024 8:52 PM [facility] Comment: NOTE: eGFR is not calculated for patients <18 years of age. This is an estimated GFR calculation using the new CKD EPI creatinine equation without race and so does not require a correction factor for race. This estimated GFR should not be used for calculating drug doses. 08/06/2024 8:16 PM CDT Ketan Aguilera MD LABORATORY Final Result [facility] [address] [place] [id number], * XR PELVIS 1 OR 2 VIEWS [...] 8:35 PM Narrative 08/06/2024 8:40 PM CDT [place] [id number] [facility] [place] [address] Examination: Pelvis AP view, lumbar spine 3 views [id number] Exam Date/Time: 08/06/2024 8:14 PM Reason For [...] Procedure Note Dick Parry MD - 08/06/2024 [facility] [address] [facility] [place] [address] Examination: Pelvis AP view, lumbar spine 3 views [id number] Exam Date/Time: 08/06/2024 8:14 PM Reason For [...] 8:35 PM Narrative 08/06/2024 8:40 PM CDT [place] [id number] [place] [address] Examination: Pelvis AP view, lumbar spine 3 views [id number] Exam Date/Time: 08/06/2024 8:14 PM Reason For [...] Procedure Note Dick Parry MD - 08/06/2024 [facility] [address] [place] [address] Examination: Pelvis AP view, lumbar spine 3 views [id number] Exam Date/Time: 08/06/2024 8:14 PM Reason For [...] Documents on File Type Date Recorded Patient Trimmer Helper Expl anation Power of Movie Theater Manager Advance Directives and Livin g Will 08/28/2022 [...] 4:05 PM 08/30/2022 3:[address] Relationship Specialty Start Date End Date Eliu Vicente MD [address] [place] [address] PCP - General FAMILY PRACTICE 09/17/21
--- OUTSIDE RECORDS SUMMARY | 2024-09-05 11:35 | XMS_ITS | Encounter Summary ---
Author Organization [facility] Address [facility] [place] [place] [address] Care Team Providers Care Informatics Scientist Name Role Phone Eliu Vicente MD Primary Care Provider [phone] Encounter Details Date Type Department Care Team (Late st Contact Info) Description 08/30/2024 Orders Only [facility] [address] [place], [place] [id number] Eliu Vicente MD [address] [place] [address] Social History Tobacco Use Types [...] materials from doctor or pharmacy Never 08/15/2024 [facility] Utilities Answer Date Recorded In the past 12 months has th e [employer], gas, oil, or water company threatened to [...] How often do you attend chur or pentecostalism services? More than 4 times per year 08/26/2022 Do you belong to any clubs o r organizations such as taoism groups, unions, fraternal or athletic groups, or [...] Recorded Patient Health Questionnaire-2 Score 0 08/26/2022 [facility] - Occupational Stress [...] place to sleep or slept in a prison (including now)? No 02/04/2023 Housing Stability Vital Sign Answer Papo e Recorded In the last 12 months, was t here a time when you were not able to pay the mortgage or rent on time? No 08/08/2024 In the past 12 months, how m any times have you moved where you were living? 0 08/08/2024 At any time in the past 12 m [facility], were you homeless or living in a prison (including now)? No 08/08/2024 Comments No Sex and Gender Information Value Date Recorded Sex Assigned at Female 03/16/2024 12:42 PM BALCONY WORKER Legal Sex Female 11:51 PM CDT Gender [...] PM MAHESHT Viki Cherry RN Active documented as of [...] Info) Description 09/06/2024 9:00 AM CDT Appointment [facility] Home Care [address] [place] [address] Laura Black, PT [address] [place] [address] 09/06/2024 10:30 AM CDT Home Care Visit [address] [place] [address] Augustina Maurice RN [phone] (Work) 09/18/2024 9:30 AM CDT Office Visit [facility] [address] [place] [phone] Jhonny Reese MD [facility]. [address] [address] documented as of this encounter Goals Goal Patient Goal Type Associated Problems Recent Progress Patient-Stated? Author Family - family caregiver with be involved in care transitions and discharge planning Lifestyle No Apryl Adams RN documented as of this encounter Results * URINE BACTERIA CULTURE (08/30/2024 11:30 AM CDT) SPEC DESCRIPTION URINE, UNSPECIFIED 08/30/2024 2:58 PM CDT [facility] SPECIAL REQUESTS NO SPECIAL REQUEST 08/30/2024 2:58 PM CDT [facility] CULTURE RESULT MULTIPLE ORGANISMS PRESENT, PROBABLE CONTAMINATION. SUGGEST REPEAT CULTURE. 08/31/2024 11:49 AM CDT [facility] URINE SPECIMEN / Unknown 08/30/2024 11:30 AM CDT 08/30/2024 2:59 PM CDT us Eliu Vicente MD MICROBIOLOGY - GENERAL ORDERA BLE Final Result Performing Organization Address City/State/[facility] Co de Phone Number [facility] [address] [place] [address], [place] [phone] [facility] [address] [place] [address], [place] [phone] * (ABNORMAL) URINALYSIS (08/30/2024 11:30 AM CDT) COLOR (U) YELLOW 08/30/2024 4:14 PM CDT [facility] TRANSPARENCY CLEAR 08/30/2024 4:14 PM CDT [facility] SPECIFIC GRAVITY (U) 1.010 1.002 - 1.030 08/30/2024 4:14 PM CDT [facility] U PH 6.5 4.5 - 8.0 08/30/2024 4:14 PM CDT [facility] LEUKOCYTES (U) 3+(A) NEGATIVE 08/30/2024 4:14 PM T [facility] NITRITES NEGATIVE NEGATIVE 08/30/2024 4:14 PM T [facility] PROTEIN RANDOM (U) 1+(A) NEGATIVE 08/30/2024 4:14 PM T [facility] GLUCOSE (U) NEGATIVE NEGATIVE 08/30/2024 4:14 PM T [facility] KETONES MG/DL (U) NEGATIVE NEGATIVE 08/30/2024 4:14 PM T [facility] UROBILINOGEN NORMAL NORMAL EU/DL 08/30/2024 4:14 PM T [facility] BILIRUBIN (U) NEGATIVE NEGATIVE 08/30/2024 4:14 PM T [facility] BLOOD (U) 1+(A) NEGATIVE 08/30/2024 4:14 PM T [facility] WBC/HPF 5-10 /HPF 08/30/2024 4:14 PM T [facility] RBC/HPF 0-2 /HPF 08/30/2024 4:14 PM T [facility] EPI/HPF 0-5 /HPF 08/30/2024 4:14 PM T [facility] BACTERIA (U) 3+ /HPF 08/30/2024 4:14 PM T [facility] URINE SPECIMEN / Unknown 08/30/2024 11:30 AM CDT Eliu Vicente MD URINE ORDERABLES Final Result Performing Organization Address City/State/[facility] Co de Phone Number [facility] [address] [place] [address], documented in this encounter Visit Diagnoses Diagnosis UTI (urinary tract infection)- Primary Urinary tract infection, site not specified documented in this encounter Care Teams Informatics Scientist Relationship Specialty Start Date End Date Eliu Vicente MD [address] [place], [place] [id number] PCP - General FAMILY PRACTICE 09/17/21 documented as of this encounter
--- OUTSIDE RECORDS SUMMARY | 2024-09-05 11:35 | XMS_ITS | Referral Summary ---
Author Organization [facility] Medical Office Building B Address [address] [place] [address] Care Team Providers Care Food Service Utility Worker Name Role Phone Eliu Vicente MD Primary Care Provide r Eleanor Cruz PTA Unavailable Unavailable Melva Knight Unavailable [phone] Encounters Date Type Department Care Team Description 08/03/2024 11:20 AM CDT - 08/03/2024 11:59 PM CDT Hospital Encounter [facility] Medical [facility] Orthopedics and Sports Medicine [address] [place] [address] [place] [phone] Discharge Disposition: Discharge to home or self care 08/03/2024 11:15 AM CDT Office Visit [facility] Orthopedics and Sports Medicine [address] [place] [phone] Les Crooks MD Trochanteric bursitis, left hip [...] 01/07/2023 Assessment & Plan (02/03/2023 4:05 PM MENTAL HEALTH WORKER): Impression: Patient complains of weakness to bilateral [...] with repeat lower extremity arterial Doppler in [place]. Assessment & Plan (01/07/2023 10:16 AM MENTAL HEALTH WORKER): Impression: Patient complains of symptoms of claudication [...] 01/07/2023 Assessment & Plan (02/03/2023 4:02 PM MENTAL HEALTH WORKER): Impression: Patient continues to have bilateral lower [...] pumps. Assessment & Plan (01/07/2023 10:18 AM MENTAL HEALTH WORKER): Impression: Patient has 2+ pitting edema to bilateral lower extremities. No open ulcerations are noted. Serous drainage is noted to left lower extremity. Plan: Recommend compression therapy and leg elevation for edema control. -educated patient and her family on using compression wraps with Willie bandages to both legs. Essential hypertension 01/07/2023 Assessment & Plan (01/07/2023 10:19 AM MENTAL HEALTH WORKER): Impression: Chronic and stable. Plan: Continue Zestoretic, metoprolol Mixed hyperlipidemia 01/07/2023 Assessment & Plan (02/03/2023 4:02 PM MENTAL HEALTH WORKER): Impression: Chronic stable. Plan: Continue pravastatin Assessment & Plan (01/07/2023 10:19 AM MENTAL HEALTH WORKER): Impression: Chronic and stable. Plan: Continue pravastatin. Primary osteoarthritis of left hip 02/16/2019 Overview (02/16/2019): Added automatically from request for surgery [id number] Aftercare following right knee joint replacement surgery [...] on file Legal Sex Female 8:56 PM MENTAL HEALTH WORKER Gender Identity Not on file Sexual Orientation Not on file Last Filed Vital Signs Vital Sign [place] Time Taken Comments Blood Pressure 161/62 05/02/2024 8:57 AM MENTAL HEALTH WORKER Pulse 84 05/02/2024 8:57 AM MENTAL HEALTH WORKER Temperature 37.1 C (98.8 F) 04/16/2024 5:28 PM MENTAL HEALTH WORKER Respiratory Rate 20 04/16/2024 5:28 PM MENTAL HEALTH WORKER Oxygen Saturation 98% 04/16/2024 5:28 PM MENTAL HEALTH WORKER Inhaled Oxygen Concentration - - Weight 86.2 kg (190 lb) 08/03/2024 10:58 AM CDT Height 157.5 cm (5' 2) 08/03/2024 10:58 AM CDT Body Mass Index 34.75 08/03/2024 10:58 AM CDT Plan of Treatment Not on file Medical Devices Implanted Type Area Art Editor Device Identifier Shelf Expiration Date Model / Serial / Lot [employer] [id number] Smartset High Viscosity Cement 40gm Bone Gentamicin - [id number] Implanted:Qty: 1 on 10/18/2017 by Les Crooks MD at [facility] Bone Cement Right: Patella [employer] 11/28/2018 [id number] / / [id number] [employer] [id number] Attune Cemented Posterior Stabilize Knee Right 5 Component - [id number] Implanted:Qty: 1 on 10/18/2017 by Les Crooks MD at [facility] Right: Knee [employer] 04/29/2027 [id number] / / [id number] [employer] [id number] Attune S+ Cement Fix Bearing Knee 5 Baseplate Tibial - [id number] Implanted:Qty: 1 on 10/18/2017 by Les Crooks MD at [facility] Right: Knee [employer] 05/30/2027 [id number] / / [id number] [employer] [id number] Attune 35mm Cemented Medialize Knee Dome Patellar Aox Sterile - [id number] Implanted:Qty: 1 on 10/18/2017 by Les Crooks MD at [facility] Right: Knee [employer] 07/29/2022 [id number] / / [id number] [employer] [id number] Attune 5mm Posterior Stabilize Fix Bearing Knee 5 Insert Tibial - [id number] Implanted:Qty: 1 on 10/18/2017 by Les Crooks MD at [facility] Right: Knee [employer] 02/28/2022 [id number] / / [id number] [employer] [id number] [place] 52mm 36mm Hip Neutral Liner Acetabular Altrx Sterile Latex Free - [id number] Implanted:Qty: 1 on 03/08/2019 by Les Crooks MD at [facility] Left: Hip [employer] 01/29/2024 [id number] / / [id number] [employer] [id number] [place] 52mm Sector Hip Shell Acetabular Gription Sterile Latex Free - [id number] Implanted:Qty: 1 on 03/08/2019 by Les Crooks MD at [facility] Left: Hip [employer] 11/28/2028 [id number] / / [id number] [employer] [id number] Actis Collar Hip 4 High Offset Stem Femoral - [id number] Implanted:Qty: 1 on 03/08/2019 by Les Crooks MD at [facility] Left: Hip [employer] 01/28/2029 [id number] / / [id number] [employer] [id number] Articul/Dequan 36mm Cementless Hip +1.5mm 12/14 Taper Head Femoral Latex Free - [id number] Implanted:Qty: 1 on 03/08/2019 by Les Crooks MD at [facility] Left: Hip [employer] 12/30/2023 [id number] / / [id number] Procedures Procedure Name Priority Date/Time Associated Diagnosis Comments XR KNEE RIGHT 3 VIEWS Schedule Routine, Read Routine (OP Routine) 08/03/2024 11:22 AM CDT Right knee pain, unspecified chronicity IN ARTHROCENTESIS ASPIR&/INJ MAJOR JT/BURSA W/O US Routine 08/03/2024 11:15 AM CDT Primary osteoarthritis of left knee IN ARTHROCENTESIS ASPIR&/INJ MAJOR JT/BURSA W/O US Routine 08/03/2024 11:15 AM CDT Trochanteric bursitis, left hip from Last 3 Months Results * XR Knee Right 3 View (08/03/2024 11:22 AM CDT) Anatomical Region Laterality Modality Lower Extremities, Knee Right Digital Radiography Narrative 08/03/2024 1:21 PM CDT Right total knee arthroplasty in appropriate position with no interval change. Result [facility] Les Crooks MD IMG XR PROCEDURES Final Result * IN ARTHROCENTESIS ASPIR&/INJ MAJOR JT/BURSA W/O US (08/03/2024 11:15 AM CDT) Narrative eLs Crooks MD - 08/03/2024 11:15 AM CDT Les Crooks MD 08/03/2024 1:21 PM Large Joint (Hip, Knee, Shoulder) Injection: L knee Performed by: Les Crooks MD Authorized by: Lse Crooks MD Large Joint Injection/Aspiration: Consent Given [...] procedure well with no immediate complications Result [facility] Les Crooks MD IN CLINIC/BEDSIDE ORDERA BLES Final Result * IN ARTHROCENTESIS ASPIR&/INJ MAJOR JT/BURSA W/O US (08/03/2024 [...] Advance Directives For more information, please contact: [phone] * Full Code (Latest Code Status on File) Date Activated Date Inactivated Comments 03/08/2019 12:49 PM 03/09/2019 7:22 PM * Full Code Date Activated Date Inactivated Comments 10/18/2017 3:37 PM 10/19/2017 5:31 PM Care Teams Food Service Utility Worker Relationship Specialty Start Date End Date Eliu Vicente MD [address] [place] [address] PCP - General 12/15/13 Eleanor Cruz PTA Peoplesoft Programmer Physical Therapy 10/11/17 Melva Knight, MARCELO Orthopedic Surgery 03/09/19
--- OUTSIDE RECORDS SUMMARY | 2024-09-05 11:35 | XMS_ITS | Clinical Summary ---
Author Organization [facility] Medical Office Building B Address [address] [place] [address] Care Team Providers Care Unit Manager Name Role Phone Eliu Vicente MD Primary Care Provide r Eleanor Cruz PTA Unavailable Unavailable Melva Knight Unavailable [phone] Allergies Active Allergy Reactions Criticality Noted Date [...] 01/07/2023 Assessment & Plan (02/03/2023 4:05 PM MISDRAW HAND): Impression: Patient complains of weakness to bilateral [...] with repeat lower extremity arterial Doppler in [place]. Assessment & Plan (01/07/2023 10:16 AM MISDRAW HAND): Impression: Patient complains of symptoms of claudication [...] 01/07/2023 Assessment & Plan (02/03/2023 4:02 PM MISDRAW HAND): Impression: Patient continues to have bilateral lower [...] pumps. Assessment & Plan (01/07/2023 10:18 AM MISDRAW HAND): Impression: Patient has 2+ pitting edema to bilateral lower extremities. No open ulcerations are noted. Serous drainage is noted to left lower extremity. Plan: Recommend compression therapy and leg elevation for edema control. -educated patient and her family on using compression wraps with Willie bandages to both legs. Essential hypertension 01/07/2023 Assessment & Plan (01/07/2023 10:19 AM MISDRAW HAND): Impression: Chronic and stable. Plan: Continue Zestoretic, metoprolol Mixed hyperlipidemia 01/07/2023 Assessment & Plan (02/03/2023 4:02 PM MISDRAW HAND): Impression: Chronic stable. Plan: Continue pravastatin Assessment & Plan (01/07/2023 10:19 AM MISDRAW HAND): Impression: Chronic and stable. Plan: Continue pravastatin. Primary osteoarthritis of left hip 02/16/2019 Overview (02/16/2019): Added automatically from request for surgery [id number] Aftercare following right knee joint replacement surgery 11/05/2017 Lateral epicondylitis of left elbow 11/02/2017 Primary osteoarthritis of right knee 05/17/2017 Bilateral primary osteoarthritis of knee 017 Encounters Date Type Department Care Team Description 08/03/2024 11:20 AM CDT - 08/03/2024 11:59 PM CDT Hospital Encounter [facility] Medical [facility] Orthopedics and Sports Medicine [address] [place] [phone] Discharge Disposition: Discharge to home or self care 08/03/2024 11:15 AM CDT Office Visit [facility] Orthopedics and Sports Medicine [address] [place] [phone] Les Crooks MD Trochanteric bursitis, left hip [...] on file Legal Sex Female 8:56 PM MISDRAW HAND Gender Identity Not on file Sexual Orientation Not on file Obstetrics History Last Filed Vital Signs Vital Sign [place] Time Taken Comments Blood Pressure 161/62 05/02/2024 8:57 AM MISDRAW HAND Pulse 84 05/02/2024 8:57 AM MISDRAW HAND Temperature 37.1 C (98.8 F) 04/16/2024 5:28 PM MISDRAW HAND Respiratory Rate 20 04/16/2024 5:28 PM MISDRAW HAND Oxygen Saturation 98% 04/16/2024 5:28 PM MISDRAW HAND Inhaled Oxygen Concentration - - Weight 86.2 [...] 11/02/2014, 11/30 Medical Devices Implanted Type Area Operator Electronic Warfare Device Identifier Shelf Expiration Date Model / Serial / Lot [employer] [id number] Smartset High Viscosity Cement 40gm Bone Gentamicin - [id number] Implanted:Qty: 1 on 10/18/2017 by Les Crooks MD at [facility] Bone Cement Right: Patella [employer] 11/28/2018 [id number] / / [id number] [employer] [id number] Attune Cemented Posterior Stabilize Knee Right 5 Component - [id number] Implanted:Qty: 1 on 10/18/2017 by Les Crooks MD at [facility] Right: Knee [employer] 04/29/2027 [id number] / / [id number] [employer] [id number] Attune S+ Cement Fix Bearing Knee 5 Baseplate Tibial - [id number] Implanted:Qty: 1 on 10/18/2017 by Les Crooks MD at [facility] Right: Knee [employer] 05/30/2027 [id number] / / [id number] [employer] [id number] Attune 35mm Cemented Medialize Knee Dome Patellar Aox Sterile - [id number] Implanted:Qty: 1 on 10/18/2017 by Les Crooks MD at [facility] Right: Knee [employer] 07/29/2022 [id number] / / [id number] Dep[employer] [id number] Attune 5mm Posterior Stabilize Fix Bearing Knee 5 Insert Tibial - [id number] Implanted:Qty: 1 on 10/18/2017 by Les Crooks MD at [facility] Right: Knee [employer] 02/28/2022 [id number] / / [id number] [employer] [id number] [place] 52mm 36mm Hip Neutral Liner Acetabular Altrx Sterile Latex Free - [id number] Implanted:Qty: 1 on 03/08/2019 by Les Crooks MD at [facility] Left: Hip [employer] 01/29/2024 [id number] / / [id number] [employer] [id number] [place] 52mm Sector Hip Shell Acetabular Gription Sterile Latex Free - [id number] Implanted:Qty: 1 on 03/08/2019 by Les Crooks MD at [facility] Left: Hip [employer] 11/28/2028 [id number] / / [id number] [employer] [id number] Actis Collar Hip 4 High Offset Stem Femoral - [id number] Implanted:Qty: 1 on 03/08/2019 by Les Crooks MD at [facility] Left: Hip [employer] 01/28/2029 [id number] / / [id number] [employer] [id number] Articul/Dequan 36mm Cementless Hip +1.5mm 12/14 Taper Head Femoral Latex Free - [id number] Implanted:Qty: 1 on 03/08/2019 by Les Crooks MD at [facility] Left: Hip [employer] 12/30/2023 [id number] / / [id number] Procedures Procedure Name Priority Date/Time Associated Diagnosis Comments XR KNEE RIGHT 3 VIEWS Schedule Routine, Read Routine (OP Routine) 08/03/2024 11:22 AM CDT Right knee pain, unspecified chronicity [place] ARTHROCENTESIS ASPIR&/INJ MAJOR JT/BURSA W/O US Routine 08/03/2024 11:15 AM CDT Primary osteoarthritis of left knee [place] ARTHROCENTESIS ASPIR&/INJ MAJOR JT/BURSA W/O US Routine 08/03/2024 11:15 AM CDT Trochanteric bursitis, left hip from Last 3 Months Results * XR Knee Right 3 View (08/03/2024 11:22 AM CDT) Anatomical Region Laterality Modality Lower Extremities, Knee Right Digital Radiography Narrative 08/03/2024 1:21 PM CDT Right total knee arthroplasty in appropriate position with no interval change. us Les Crooks MD IMG XR PROCEDURES Final Result * [place] ARTHROCENTESIS ASPIR&/INJ MAJOR JT/BURSA W/O US (08/03/2024 [...] IN CLINIC/BEDSIDE ORDERA BLES Final Result * [place] ARTHROCENTESIS ASPIR&/INJ MAJOR JT/BURSA W/O US (08/03/2024 [...] Last 3 Months Insurance MEDICARE MEDICARE COMMERCIAL [facility] Advance Directives For more information, please contact: [phone] * Full Code (Latest Code Status on File) Date Activated Date Inactivated Comments 03/08/2019 12:49 PM 03/09/2019 7:22 PM * Full Code Date Activated Date Inactivated Comments 10/18/2017 3:37 PM 10/19/2017 5:31 PM Care Teams Unit Manager Relationship Specialty Start Date End Date Eliu Vicente MD [address] [place] [address] PCP - General 12/15/13 Eleanor Cruz PTA Poultry Process Worker Physical Therapy 10/11/17 Melva Knight PA Orthopedic Surgery 03/09/19
--- OUTSIDE RECORDS SUMMARY | 2024-09-05 11:35 | XMS_ITS | Clinical Summary ---
Author Organization [facility] Address [address] [place] [id number] Phone Care Team Providers Care Warehouse Administrative Assistant Name Role Phone Eliu Vicente MD Primary Care Provider [phone] Allergies Active Allergy Reactions Criticality Noted Date [...] (07/09/2021): Added automatically from request for surgery [id number] Patient encounter status 11/05/2017 Lateral epicondylitis of [...] Comments Blood Pressure 136/78 01/14/2022 9:44 AM MANUFACTURING TEAM MEMBER Pulse - - Temperature 35.9 C (96.6 F) 01/14/2022 9:44 AM MANUFACTURING TEAM MEMBER Respiratory Rate 18 01/14/2022 9:44 AM MANUFACTURING TEAM MEMBER Oxygen Saturation - - Inhaled Oxygen Concentration - - Weight 90.7 kg (200 lb) 01/14/2022 9:44 AM MANUFACTURING TEAM MEMBER Height 160 cm (5' 3) 01/14/2022 9:44 AM MANUFACTURING TEAM MEMBER Body Mass Index 35.43 01/14/2022 9:44 AM MANUFACTURING TEAM MEMBER Plan of Treatment Health Maintenance Due Date Last Done Comments Pneumococcal PPSV23/PCV13 65 + Years / Low and Medium Risk (1 of 2 - PCV) 07/04/1985 COVID-19 Vaccine ( season) 10/31/202306/2020, 04/05/2020 Influenza Vaccine (#1) 2024 11/29/2018 Insurance MEDICARE GENERIC COMMERCIAL Care Teams Warehouse Administrative Assistant Relationship Specialty Start Date End Date Eliu Vicente MD [address] [place] [address] PCP - General Internal Medicine 06/23/21
--- OUTSIDE RECORDS SUMMARY | 2024-09-05 11:35 | XMS_ITS | Encounter Summary ---
Author Organization [facility] Address [facility] [place] [address] Care Team Providers Care Odd Piece Checker Name Role Phone Eliu Vicente MD Primary Care Provider [phone] Encounter Details Date Type Department Care Team (Late st Contact Info) Description 05/20/2023 Abstract [facility] [address] Mina Koch MA Social History Tobacco Use Types Packs/Day Years Used Date Smoking Tobacco: Never Smokeless Tobacco: Never Alcohol Use Standard Drinks/Week Comments Never 0 (1 standard drink = 0.6 oz pur e alcohol) [facility] Utilities Answer Date Recorded In [...] often do you attend chur ch or yarsani services? More than 4 times per year 08/26/2022 Do you belong to any clubs o r organizations such as gnosticist groups, unions, fraternal or athletic groups, or [...] Recorded Patient Health Questionnaire-2 Score 0 08/26/2022 [facility] - Occupational Stress Questionnaire Answer Date Recorded [...] place to sleep or slept in a [place] (including now)? No 02/04/2023 Comments No Sex and Gender Information Value Date Recorded Sex Assigned at Female 03/16/2024 12:42 PM VALIDATION ANALYST Legal Sex Female 11:51 PM CDT Gender [...] Info) Description 09/06/2024 9:00 AM CDT Appointment [facility] [address] [place] [address] [place] [address] Laura Black, PT [address] [place], [place] [address] 09/06/2024 10:30 AM CDT Home Care Visit [address] [place] [address] Augustina Maurice RN [phone] (Work) 09/18/2024 9:30 AM CDT Office Visit [facility] [id number] [place] [phone] Jhonny Reese MD [address] [address] documented as of this encounter Procedures Procedure [...] on filedocumented in this encounter Care Teams Odd Piece Checker Relationship Specialty Start Date End Date Eliu Vicente MD [address] [place] [address] PCP - General FAMILY PRACTICE 09/17/21 documented as of this encounter
--- OUTSIDE RECORDS SUMMARY | 2024-09-05 11:35 | XMS_ITS | Encounter Summary ---
Author Organization [facility] Address [facility] [place] [address] Care Team Providers Care Authorization Specialist Name Role Phone Eliu Vicente MD Primary Care Provider [phone] Encounter Details Date Type Department Care Team (Late st Contact Info) Description 09/04/2024 7:30 AM CDT Home Care Visit [address] [place] [address] Juan Vora, DIDI PLANNING SPECIALIST HOME VISIT Social History Tobacco Use Types [...] materials from doctor or pharmacy Never 08/15/2024 [facility] Utilities Answer Date Recorded In the past 12 months has [facility] gas, oil, or water [employer] threatened to shut off services in your [...] often do you attend chur ch or congregation services? More than 4 times per year 08/26/2022 Do you belong to any clubs o r organizations such as episcopal groups, unions, fraternal or athletic groups, or [...] Recorded Patient Health Questionnaire-2 Score 0 08/26/2022 [facility] - Occupational Stress [...] place to sleep or slept in a [facility] (including now)? No 02/04/2023 Housing Stability Vital Sign Answer Papo e Recorded In the last 12 months, was t here a time when you were not able to pay the mortgage or rent on time? No 08/08/2024 In the past 12 months, how m any times have you moved where you were living? 0 08/08/2024 At any time in the past 12 [facility], were you homeless or living in a [facility] (including now)? 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 Sex Female 11:51 PM CDT Gender [...] CDT Inhaled Oxygen Concentration - - Weight - - Height - - Body Mass Index - - documented in this encounter Functional Status * [...] Info) Description 09/06/2024 9:00 AM CDT Appointment [address] [place] [address] Laura Black, PT [address] [facility] [place] [address] 09/06/2024 10:30 AM CDT Home Care Visit [facility] [address] [place] [address] [place] [address] Augustina Maurice, RN [phone] (Work) 09/18/2024 9:30 AM CDT Office Visit [facility] [address] [place] [address] Jhonny Reese MD [facility] [address] [place] [address] documented as of this encounter Goals Goal Patient Goal Type Associated Problems Recent Progress Patient-Stated? Author Family - family caregiver with be involved in care transitions and discharge planning Lifestyle No Apryl Adams RN documented as of this encounter Visit Diagnoses Not on filedocumented in this encounter Home Health Visit - Care Plan Visit Details Visit Type -PLANNING SPECIALIST - Home Visit Discipline -Physical Therapy Problems [...] 2 goals linked to scheduled/documen junie interventions 6 goal interventions scheduled/documen junie in this visit [...] pain management plan by 09/08/24. Pain/Physical Discomfort Met This Shift No Patient improves functional mobility Description: Patient [...] medical appointments by 09/08/24 Decreased Functional Mobility Progressing No Patient has progressed and now ambulates 60 feet with spc in R ue supervise with cues for sequencing but she fatigues quickly with the cane. She then ambulates 220 feet ww supervise with verbal cues for breathing technique Patient verbalizes understanding of medication regimen Description: Patient Nakita will verbalize understanding of medication regimen by 09/08/24. Collaboration of Care Met This Shift No Patient safety met through collaboration for safe care. Description: Clinicians will communicate patient care and safety needs during episode of care through 09/08/24. Patient to state 3 fall prevention/home safety techniques for a decreased risk of falling by 09/01/24 Collaboration of Care Met This Shift No Patient increases strength and/or functional mobility Description: Patient to report le hep compliance at least daily to bid for progressive strengthening by 09/01/24. Patient to demonstrate independence with LE HEP with increased L hip/knee MMT to 4/5-4+/5 to promote increased ambulation distances to 200-250 ft by Decreased Strength Progressing No The patient has progressed and now performs seated LE laqs, marching, toe pumps, heel raise, seated hip abduction and gluteal contractions, cervical rom, shoulder shrugs and scapu;ar retractions 1 set of 10 reps, patient is instructed to perform slow con trolled movements with an isometric hold in the end range. She stands at ww for heel raises and marching 1 set of reps. Patient improves balance and reduces fall risk Description: Patient to perform TUG test in 26 sec or less for decreased probability of falls with improved ability to negotiate stairs with sba by 09/08/24. Balance Deficit Progressing No Patient has progressed and now stands at ww removing both ues from support narrow laura 1 minute semi tandem 1 minute and reaching outside the laura for up to 3 minutes Interventions Intervention Associated Problem/Goal Status Variance Visit Notes Instruct on Management of Pain Description: - Teach principles of pain management and involve Patient Nakita in developing pain control regimen. - Instructed on non-pharmacological pain reduction techniques-distraction , imagery, relaxation, massage, to balance rest with [...] the level of patient's stated goal. Completed Reinstructed on non-pharmacological pain reduction techniques-distractio n, imagery, relaxation, massage, to balance rest with activity, positioning Also polar pack and pain meds should be taken prior to pain. Assess Pain Description: -Perform comprehensive pain assessment of patient's level of pain using Numeric pain scale and assess effectiveness of current pain regimen. Problem:Pain/Physical Discomfort Goal:Patient's pain/physical discomfort will be reduced to the level of patient's stated goal. Completed Patient verbalizes an understending Transfer Deficit/Training Description: - Therapeutic Exercise. - Transfer Training - Establish home exercise program. Problem:Decreased Functional Mobility Goal:Patient improves functional mobility Completed The patient performs all transfers modified independent. Gait Deficit Description: Gait training with kandis progressing to st.cane when outdoors with spouse supervision as tolerated/appropriate. Problem:Decreased Functional Mobility Goal:Patient improves functional mobility Completed Patient ambulates 60 feet with spc in R ue supervise with cues for sequencing but she fatigues quickly with the cane. She then ambulates 220 feet ww supervise with verbal cues for breathing technique and pacing. Instruct on stair climbing Description: Instruct in safe stair negotiation to enter/exit the home for apppointments. Problem:Decreased Functional Mobility Completed Patient performs stairs daily mod independent Medication Reconciliation Description: Clinician to review medications with patient/caregiver at each visit and report changes to telehealth case manager and/or supervising therapist. Problem:Collaboration of Care Goal:Patient verbalizes understanding of medication regimen Completed The pateint has not had any changes in medication since last visit. Assess Vital Signs Description: Obtain and record [...] met through collaboration for safe care. Completed Patients vital signs are within normal parameters on this date. Instruct Home Safety Description: Instruct patient on strategies/modificatio ns to home environment. Patient up as tolerated [...] met through collaboration for safe care. Completed Patient was instructed on home safety and fall prevention techniques including 1. Keep all pathways clear. 2. Remove or tape down throw rugs. 3. Wear well fitting shoes when transferring or ambulating. 4. Use assist device when ambulating. 5. Night light at night in event of being up to toilet in night. 6. Change position slowly. 7. Stand for one or two minutes before walking. 8. All electrical cords should be along [place] and not running across pathways. 9. Non slip mats in bathroom. 10. Regular activit y. 11. Grab bars in bathroom. Patient verbalized a good understanding of all instructions. Plan for Next Visit Description: Next visit plan summation Problem:Collaboration of Care Goal:Patient safety met through collaboration for safe care. Completed Next visit scheduled for wednesday09/06/2024 for possible discharge Plan Towards Discharge Description: Document Patient Nakita progress towards discharge. Problem:Collaboration of Care Goal:Patient safety met through collaboration for safe care. Completed Patient progressing towards goals. Care Coordination Description: Clinician to review plan of care with patient/caregivers(s). Patient/Caregiver(s) agree(s) to plan of care and agrees to participate in care. Disciplines RN, PT and OT and PCP Dr Vicente Problem:Collaboration of Care Goal:Patient safety met through collaboration for safe care. Completed reviewed Physical Therapy plan of care including frequency, duration and interventions and pt in agreeance Decreased Strength Description: - Therapeutic exercise-rom, stretching, manual therapy as appropriate, strengthening L hip/knee - Establish home exercise program. Problem:Decreased Strength Goal:Patient increases strength and/or functional mobility Completed The patient performs seated LE laqs, marching, toe pumps, heel raise, seated hip abduction and gluteal contractions, cervical rom, shoulder shrugs and scapu;ar retractions 1 set of 10 reps, patient is instructed to perform slow controlled movements with an isometric hold in the end range. She stands at ww for heel raises and marching 1 set of reps. Balance Deficit Description: - Therapeutic exercise. - Establish or upgrade home program. - Implement balance training. Problem:Balance Deficit Goal:Patient improves balance and reduces fall risk Completed Patient stands at ww removing both ues from support narrow laura 1 minute semi tandem 1 minute and reaching outside the laura for up to 3 minutes documented in this encounter Care Teams Authorization Specialist Relationship Specialty Start Date End Date Eliu Vicente MD [address] [place] [address] PCP - General FAMILY PRACTICE 09/17/21 documented as of this encounter
[2024-09-05 12:02] LABS: Anion Gap 9 mmol/L (4-12); Blood Urea Nitrogen 32 mg/dL (7-17); Calcium 8.8 mg/dL (8.4-10.2); Carbon Dioxide 21 mmol/L (22-30); Chloride 102 mmol/L (98-107); Estimated Glomerular Filt Rate 35; Glucose 84 mg/dL (65-110); Osmolality Calculated 279 mOsm/kg (285-295); Potassium 4.8 mmol/L (3.4-5.0); Sodium 132 mmol/L (137-145)
== END 2024-09-05 11:32 | disposition home or self-care (01) ==
PROVIDERS: PCP Family Medicine; Visit Provider Family Medicine
DX: I10 Essential (primary) hypertension (principal)
CPT/HCPCS: 36415; 80048